=== PATIENT | female | born 1960 | race Caucasian/White ===

== ENCOUNTER 2022-04-23 13:45 | Outpatient (RCR) | payer BC, SELFPAY | END 2022-05-25 15:23 | disposition home or self-care (01) | PROVIDERS: Visit Provider Emergency Medicine | DX: M54.50 Low back pain, unspecified (principal); Z51.89 Encounter for other specified aftercare | CPT/HCPCS: 97110 ==

== ENCOUNTER 2023-08-17 12:04 | Outpatient (CLI) | payer BC, SELFPAY ==
--- NOTE | 2023-08-17 12:15 | CRLHL7_ITS ---
For Patients: As a result of the Century Cures Act, medical imaging exams and procedure reports are released immediately into your electronic medical record. You may view this report before your referring provider. If you have questions, please contact your health care provider. CLINICAL HISTORY: Postmenopausal bleeding TECHNIQUE: 2D morales scale and color Doppler images were acquired of the pelvis using a transvaginal approach. FINDINGS: The uterus measures 7.7 x 4.9 x 5.6 cm. Partially exophytic heterogeneous fibroid arises from the left side of the mid uterus measuring 2.9 x 2.3 x 2.6 cm. The endometrium measures 3 millimeters. Lobular masses present within the endometrial canal measuring 2.1 x 1.0 x 2.0 cm. A small amount of fluid is present within the endometrial canal. Uterine echotexture is heterogeneous. The left ovary is not visualized and the right ovary measures 2.6 x 1.1 x 1.5 cm. The right ovary demonstrates normal arterial and venous blood flow on color Doppler analysis. There are no suspicious fluid collections within the cul-de-sac. IMPRESSION: Lobular hyperechoic endometrial mass measuring 2.1 x 1.0 x 2.0 cm, polyp versus other. A small amount of endometrial fluid is also present. Partially exophytic left mid uterine fibroid measuring 2.9 x 2.3 x 2.6 cm. Dictated by Abdoul Torres MD @ 08/17/2023 1:16:10 PM (Electronically Signed)
== END 2023-08-17 12:05 | disposition home or self-care (01) ==
LOC: US 12:05
PROVIDERS: PCP Emergency Medicine; Visit Provider Obstetrics & Gynecology
DX: N95.0 Postmenopausal bleeding (principal); D25.9 Leiomyoma of uterus, unspecified
CPT/HCPCS: 76830

== ENCOUNTER 2023-09-15 10:29 | Outpatient (CLI) | payer MEDICARE, BC, SELFPAY | END 2023-09-15 10:30 | disposition home or self-care (01) | LOC: LKVREF 10:31 | PROVIDERS: PCP Emergency Medicine; Visit Provider Emergency Medicine | DX: Z01.818 Encounter for other preprocedural examination (principal); I10 Essential (primary) hypertension | CPT/HCPCS: 80048 ==

== ENCOUNTER 2023-09-28 06:45 | Day surgery (SDC) | payer MEDICARE, BC, SELFPAY ==
[2023-09-28] VITALS (13 sets, daily range): BP systolic 103–126; BP diastolic 45–81; PULSE 56–75; RESP 16; TEMP 36.4–36.5; O2SAT 93–98; BMI 34.6
[2023-09-28] MEDS: LACTATED RINGERS 1000 ML 1,000 ML 100 ML IV (06:45)
--- OUTSIDE RECORDS SUMMARY | 2023-09-28 06:49 | XMS_ITS | Clinical Summary ---
Author Name Unknown Organization [employer] [facility] Address [place], [place] [address] Care Team Providers Care Instant Potato Processor Name Role Phone Heaven Farrell MD Primary Care Provider [phone] Allergies Active Allergy Reactions Criticality Noted Date Comments Aspirin Bronchospasm,Other - Describe In Comment Field High 03/04/2006 asmatic Codeine Hives 11/02/2005 Ibuprofen Anaphylaxis High 10/28/2012 Penicillins Itching,Edema 10/29/2006 Prednisone Tachycardia Medium 07/22/2020 Hydrocodone-Acetaminophen Nausea Only 6 Medications Medication Sig Dispensed Refills Start Date End Date Status CYCLOBENZAPRINE 10 MG TAB 1 tab prn 0 01/27/2007 Active BLOOD GLUCOSE TEST STRIPS use as directed 3 months 1 01/27/2007 Active FLONASE 50 MCG/ACTUATION NASAL SPRAY AEROSOLIndications: Chronic rhinitis inhale 1 spray in each nostril by nasal route once daily 1 3 06/21/2007 Active ALBUTEROL SULFATE 2.5 MG/3 ML NEB SOLUTIONIndications :Wheezing inhale 3 milliliters (2.5 mg) by nebulization 1 0 09/07/2007 Active ALBUTEROL 90 MCG/ACTUATION AEROSOL INHALER inhale 2 puffs by inhalation route every 4-6 hours as needed 3 5 09/21/2007 Active ADVAIR DISKUS 250 MCG-50 MCG/DOSE FOR INHALATION inhale 1 puff by inhalation route 2 times per day morning and evening approximately 12 hours apart 1 2 11/14/2007 Active metFORMIN (GLUCOPHAGE) 500 mg tablet Take 500 mg by mouth 2 times daily with meals. 0 10/31/2019 Active glipiZIDE extended-release (GLUCOTROL XL) 10 mg Extended-Release tablet Take 10 mg by mouth 2 times daily. 0 10/31/2019 Active rosuvastatin (CRESTOR) 10 mg tablet Take 10 mg by mouth once daily. 0 05/13/2020 Active lisinopriL (PRINIVIL; ZESTRIL) 10 mg tablet Take 10 mg by mouth once daily. 0 07/11/2020 Active famotidine (PEPCID) 20 mg tablet Take 20 mg by mouth once daily. Take 20 mg by mouth once daily. 0 11/28/2021 Active metoprolol succinate (TOPROL XL) 25 mg Sustained-Release tabletIndications:P alpitations,Heart palpitations Take 1 Tablet (25 mg) by mouth once daily. 90 Tablet 3 02/04/2023 Active Active Problems Problem Noted Date Diagnosed Date Rosacea 08/01/2007 Other and unspecified hyperlipidemia 12/07/2006 DM, UNCOMPLICATED, TYPE II 10/09/2005 PNEUMONIA - BACTERIAL 05/13/2001 CHOLELITHIASIS W/O CHOLECYSTITIS W/O OBST 1999 HYPOTHYROIDISM NOS 07/14/2000 MOLE-TRUNK 04/05/2000 PAP SMEAR 04/05/2000 PLANTAR FASCIITIS 02/02/2000 MYLAGIA - NOS 01/22/2000 ASTHMA- MILD INTERMITTENT 01/22/2000 OBESITY - NOS 09/13/1999 Resolved Problems Problem Noted Date Diagnosed Date Resolved Date Regular astigmatism 03/14/2007 10/28/19 13 Presbyopia 03/14/2007 10/28/2012 Myopia 03/14/2007 10/28/2012 Encounters Date Type Department Care Team Description 08/17/2023 Lab Requisition [facility] [phone] Unknown, Doctor from Last 3 Months Immunizations Name Administration Dates Next Due Influenza, IIV3 (Age >=3 years) 07/23/2006,07/04,07/10/2003,08/09/2000 Family History Medical History Relation Name Comments Heart Disease Father Other Mother parkinson, torsten ntia Genetic Other heart disease~stroke~hypertension~arthritis~headaches~lazy eye - son/heart disease - Mother age 50~stroke~hypertension~arthritis~headaches~lazy eye - son~Family history of:~~Breast Cancer: No~~Ovarian Cancer: No~~Colon CA: no~~Prostate CA: no~~Osteoporosis: Mother~~ ~~DM: No~~Thyroid Dz: No Relation Name Status Comments Father Maternal Grandfather Maternal Grandmother Mother Other Paternal Grandfather Paternal Grandmother Social History Tobacco Use Types Packs/Day Years Used Date Smoking Tobacco: Never Smokeless Tobacco: Never Alcohol Use Standard Drinks/Week Comments No 0 (1 standard drink = 0.6 oz pur e alcohol) Social Connections Answer Date Recorded Frequency of Communication with Friends and Fami ly Not on file 09/13/2021 Financial Resource Strain Answer Date R ecorded Difficulty of Paying Living Expenses Not on file 09/13/2021 Difficulty of Paying Living Expenses Not on file 09/13/2021 Sex and Gender Information Value Date Recorded Sex Assigned at Not on file Gender Identity Not on file Sexual Orientation Not on file Obstetrics History Para Term AB IAB SAB Ectopic Multiple Livin g Live Births 5 4 4 0 1 0 1 0 0 4 Date Outcome GA Total Labor Labor/2nd/3rd Weight Sex Delivery Anes PTL Patrizia A1 A5 Name Cl in SAB Term Term Term Term Last Filed Vital Signs Vital Sign Reading Time Taken Comments Blood Pressure 115/72 02/04/2023 11:06 AM CDT Pulse 71 02/04/2023 11:06 AM CDT Temperature 36.8 ??C (98.2 ??F) 09/07/2007 3:08 PM CS T Respiratory Rate 20 01/05/2006 11:00 AM CDT Oxygen Saturation 98% 02/04/2023 11:06 AM CDT Inhaled Oxygen Concentration - - Weight 100.7 kg (222 lb) 02/04/2023 11:06 AM CDT Height 172.7 cm (5' 8) 01/16/2022 10:29 AM CDT Body Mass Index 33.75 01/16/2022 10:29 AM CDT Plan of Treatment Health Maintenance Due Date Last Done Comments COVID-19 vaccine series (#1) 03/22/1959 Pneumococcal series for age 65+ (1 of 2 - PCV) 1964 Tdap 1969 Depression screening for age 12+ 1970 HIV for age 15-65 1973 Hepatitis C screening for ag e 18-79 1976 Tetanus booster 1978 Colonoscopy through age 75 2003 Mammogram for age 45-75 10/16/2004 10/16/2003, 08/21 Zoster (shingles) series for age 50+ (1 of 2) 2008 Lipids for age 45-75 01/05/2012 01/04/2007, 07/23/2006, 03/04/2006, Additional history exists BMI (ht and wt on same day) for age 18+ 01/16/2023 01/16/2022, 07/22/2020 DEXA/DXA scan for age 65+ 2023 Influenza for age 65+ 2023 07/23/2006 , 07/04/2004, 07/10/2003, Additional history exists Pap test for age 21-65 08/16/2026 , 08/16/2023, 03/24/2011, Additional history exists Procedures Procedure Name Priority Date/Time Associated Diagnosis Comments LAB TRACKING EVENT Routine 08/16/2023 3: 45 PM [employer]ING PICKLING PACKER SKIVER HEEL TAP THIN PREP PAP SCREEN IMAGED Routine 08/16/2023 3:45 PM [employer]ING P[employer]LING PACKER HPV THIN PREP Routine 08/16/2023 3:45 PM CURING PICKLING PACKER from Last 3 Months Results * LAB TRACKING EVENT (08/16/2023 3:45 PM CURING PICKLING PACKER) Other (Other) Client Collect / Unknown 08/16/2023 3:45 PM CURING PICKLING PACKER 08/17/2023 4:28 PM [employer]ING PICKLING PACKER Doctor Unknown LAB BILL ONLY [facility] [address] [place] [address], * SKIVER HEEL TAP THIN PREP PAP SCREEN IMAGED (08/16/2023 3:45 PM CURING PICKLING PACKER) Case Report Gynecologic Cytology Report ? Case: [id number] ? Authorizing Provider: ??Unknown, Doctor ?Collected: ? 08/16/2023 1545 ? Ordering Location: ? [facility] ?Received: ?08/18/2023 1206 ? First Screen: ?Kenton Beauchamp ? Specimen: ?SKIVER HEEL TAP ThinPrep Vial Screening, Cervical ? 08/24/2023 1:50 PM [facility]ING [facility] INTERPRETATION/ RESULT NEGATIVE FOR INTRAEPITHELIAL LESION OR MALIGNANCY (NIL) (none) 08/24/2023 1:50 PM CURING PICKLING PACKER [facility] EN[facility] LABORAT[facility] IMEN ADEQUACY Satisfactory for evaluation Endocervical component present 08/24/2023 1:50 PM CURING PICKLING PACKER [facility] LABORATORY-C ENTRAL LABORATORY HPV REQUEST HPV and PAP 08/24/2023 1:50 PM CURING PICKLING PACKER [facility] LABORATORY-C ENTRAL LABORATORY Last Pap Date 03/24/2011 08/24/2023 1:50 PM CURING PICKLING PACKER [facility] EN[facility]AL LAB[facility]AT[facility] Last Pap Result NIL 1:50 PM CURING PICKLING PACKER [facility] EN[facility]AL LABORATORY Abnormal Pap or [place] Bx in last 5 years No 08/24/2023 1:50 PM CURING PICKLING PACKER [facility] LABORATORY-C ENTRAL LABORATORY Menstrual Status Postmenopausal 08/24/2023 1:50 PM [facility]ING PICKLING PACKER [facility]-C ENTRAL LABORATORY Additional Information 08/24/2023 1:50 PM CURING PICKLING PACKER [facility] ENTRPA LABORATORY Comment: Interpreted at [facility] - [address] [facility] [address], [place] [address] Automated Review Successful 08/24/2023 1:50 PM CURING PICKLING PACKER [facility] EN[facility]PA LABORATORY Comment:Specimen processed s uccessfully by automated warp knit operator device, [employer] System, [employer] ANCILLARY TESTING SKIVER HEEL TAP HPV Ordered, Please see separate report 08/24/2023 1:50 PM CURING PICKLING PACKER [facility] Note The pap test is a screening technique, not a diagnostic procedure. It is used primarily to screen for squamous cancers and precursor lesions. Published studies have shown that it is subject to both false negative and false positive results. The pap test should not be used as the sole means to diagnose or exclude pre-malignant and malignant lesions. 08/24/2023 1:50 PM CURING PICKLING PACKER [facility] Other (Cervical) 08/16/2023 3:45 PM CURING PICKLING PACKER 08/18/2023 12:06 PM CURING PICKLING PACKER Doctor Unknown PATHOLOGY/CYTOLOGY [facility] [address] [place] [address], * HPV HIGH RISK (08/16/2023 3:45 PM CURING PICKLING PACKER) TYPE 16 Negative Negative 08/20/2023 11:20 AM CURING PICKLING PACKER [facility] TRAL LABORATORY TYPE 18 Negative Negative 08/20/2023 11:20 AM CURING PICKLING PACKER [facility] LABORAT[facility] OTHER HIGH RISK TYPES Negative Negative 08/20/2023 11:20 AM CURING PICKLING PACKER [facility] TR[facility] LABORAT[facility] Other (Cervical) 08/16/2023 3:45 PM CURING PICKLING PACKER 08/18/2023 12:06 PM CURING PICKLING PACKER Narrative [facility] - 08/20/2023 11:20 AM CURING PICKLING PACKER HPV types 16, 18, 31, 33, 35, 39, 45, 51, 52, 56, 58, 59, 66 and 68 DNA were undetectable or below the pre-set threshold. Methodology: Teagan Jason 4800 HPV Test Doctor Unknown MICROBIOLOGY [employer] [facility] [address] [place] [address], from Last 3 Months Care Teams Instant Potato Processor Relationship Specialty Start Date End Date Heaven Farrell [place] [address] [place] [address] PCP - General Emergency Medicine 01/16/22
--- OUTSIDE RECORDS SUMMARY | 2023-09-28 06:49 | XMS_ITS | Referral Summary ---
Author Name Unknown Organization [place] Address [address] [place] [address] Care Team Providers Care Communications Operator Name Role Phone [facility], [facility] Primary Care Provide r Allergies Active Allergy Reactions Criticality Noted Date Comments Aspirin Low 08/07/2013 Codeine Phosphate Low 08/07/2013 Hydrocodone-Acetaminophen Nausea Low 11/02/2005 Ibuprofen Sodium Low 08/07/2013 Penicillins Itching Low 10/29/2006 Other reaction(s): Edema Medications Medication Sig Dispensed Refills Start Date End Date Status albuterol 108 (90 Base) MCG/ACT IN inhaler 0 09/21/2007 Active cyclobenzaprine 10 MG PO tablet 0 01/27/2007 Active fluticasone 50 MCG/ACT NA nasal spray 0 06/21/2007 Active metoprolol succinate ER 25 MG PO 24 hr tablet Take 25 mg by mouth 0 08/14/2019 Active fluticasone-salmete rol 250-50 MCG/DOSE IN inhalerIndications: Moderate persistent asthma without complication Inhale 1 puff into the lungs every 12 hours 1 Inhaler 11 10/31/2019 Active metFORMIN 500 MG PO tabletIndications:T ype 2 diabetes mellitus with other specified complication, unspecified whether long wall shear operator insulin use (H) Take 1 tablet (500 mg) by mouth 2 times daily (with meals) 180 tablet 1 10/31/2019 Active glipiZIDE 10 MG PO 24 hr tabletIndications:T ype 2 diabetes mellitus with other specified complication, unspecified whether senior care insulin use (H) Take 2 tablets (20 mg) by mouth daily 60 tablet 11 10/31/2019 Active ipratropium - albuterol 0.5 mg/2.5 mg/3 mL (DUONEB) 0.5-2.5 (3) MG/3ML neb solutionIndications :Post-viral cough syndrome,Moderate persistent asthma with acute exacerbation Take 1 vial (3 mLs) by nebulization every 6 hours as needed for shortness of breath / dyspnea or wheezing 1 Box 1 11/28/2019 Active rosuvastatin (CRESTOR) 10 MG tabletIndications:H yperlipidemia with target LDL less than 100 Take 1 tablet (10 mg) by mouth daily 90 tablet 1 05/13/2020 Active Active Problems Problem Noted Date Diagnosed Date Moderate persistent asthma 11/03/2019 Type 2 diabetes mellitus treated without insulin 11/03/2019 Morbid obesity 11/03/2019 Hypercholesteremia 11/03/2019 Essential hypertension 11/03/2019 Low back pain 08/07/2013 Immunizations Name Administration Dates Next Due Influenza (H1N1) 11/22/2009 Influenza (IIV3) PF 07/23/2006, 4,07/10/2003, 000 Influenza, seasonal, injectable, PF 11/22/2009 Pneumococcal 23 valent 11/01/2013 TDAP Vaccine (Adacel) 03/24/2011 Social History Tobacco Use Types Packs/Day Years Used Date Smoking Tobacco: Never Smokeless Tobacco: Never Alcohol Use Standard Drinks/Week Comments No 0 (1 standard drink = 0.6 oz pur e alcohol) PHQ-2 Answer Date Recorded PHQ-2 Score 0 10/31/2019 Adolescent Education Answer Date Record ed Getting School Help Needed Not on file 06/20 Sex and Gender Information Value Date Recorded Sex Assigned at Not on file Gender Identity Not on file Sexual Orientation Not on file Last Filed Vital Signs Vital Sign Reading Time Taken Comments Blood Pressure 120/72 11/03/2019 1:48 PM FINANCIAL ADVOCATE Pulse 116 11/03/2019 1:48 PM FINANCIAL ADVOCATE Temperature 37.7 ??C (99.9 ??F) 11/03/2019 1:48 PM CS T Respiratory Rate 26 11/03/2019 1:48 PM FINANCIAL ADVOCATE Oxygen Saturation 97% 11/03/2019 1:48 PM FINANCIAL ADVOCATE Inhaled Oxygen Concentration - - Weight 106.1 kg (234 lb) 11/03/2019 1:48 PM FINANCIAL ADVOCATE Height 172.7 cm (5' 8) 11/03/2019 1:48 PM FINANCIAL ADVOCATE Body Mass Index 35.58 11/03/2019 1:48 PM FINANCIAL ADVOCATE Plan of Treatment Not on file Advance Directives For more information, please contact: [phone] Latest Code Status on File Code Status Date Activated Date Inactivated Comments Full Code 08/08/2013 10:56 AM Code Status History Code Status Date Activated Date Inactivated Comments Full Code 08/07/2013 7:10 PM 08/08/2013 10:56 AM Care Teams Communications Operator Relationship Specialty Start Date End Date [facility] [place] [address] PCP - General 08/07/13
--- OUTSIDE RECORDS SUMMARY | 2023-09-28 06:49 | XMS_ITS | Clinical Summary ---
Author Name Unknown Organization [place] Address [address] [place] [id number] Care Team Providers Care Inspector Machine Cut Glass Name Role Phone [facility], [facility] Primary Care Provide r Allergies Active Allergy [...] mellitus with other specified complication, unspecified whether chemical dependency counselor insulin use (H) Take 1 tablet (500 mg) by mouth 2 times daily (with meals) 180 tablet 1 10/31/2019 Active glipiZIDE 10 MG PO 24 hr tabletIndications:T ype 2 diabetes mellitus with other specified complication, unspecified whether prison insulin use (H) Take 2 tablets (20 [...] Comments Blood Pressure 120/72 11/03/2019 1:48 PM STORE MANAGEMENT TRAINEE Pulse 116 11/03/2019 1:48 PM STORE MANAGEMENT TRAINEE Temperature 37.7 ??C (99.9 ??F) 11/03/2019 1:48 PM CS T Respiratory Rate 26 11/03/2019 1:48 PM STORE MANAGEMENT TRAINEE Oxygen Saturation 97% 11/03/2019 1:48 PM STORE MANAGEMENT TRAINEE Inhaled Oxygen Concentration - - Weight 106.1 kg (234 lb) 11/03/2019 1:48 PM STORE MANAGEMENT TRAINEE Height 172.7 cm (5' 8) 11/03/2019 1:48 PM STORE MANAGEMENT TRAINEE Body Mass Index 35.58 11/03/2019 1:48 PM STORE MANAGEMENT TRAINEE Plan of Treatment Health Maintenance Due Date Last Done Comments ADVANCE CARE PLANNING 1960 ANNUAL REVIEW OF HM ORDERS [address] ASTHMA ACTION PLAN [address] CT COLONOGRAPHY 1958 EYE EXAM 1960 FIT 1958 FLEX SIG 1960 MICROALBUMIN 1958 YEARLY PREVENTIVE VISIT 1958 sDNA (Cologuard) 1960 COVID-19 Vaccine (#1) 03/22/1959 HEPATITIS C SCREENING 1976 PAP 1979 ZOSTER IMMUNIZATION (1 of 2) 2008 Pneumococcal Vaccine: Pediatrics (0 to 5 Years) and At-Risk Patients (6 to 64 Years) (2 of 2 - PCV) 11/01/2014 11/01/2013 MAMMO SCREENING 06/20/2017 06/20/2015 RSV VACCINE ( & 60+) (1 - 1-dose 60+ series) 2018 A1C 01/29/2020 10/31/2019, 07/15, 08/07/2013 ASTHMA CONTROL TEST 04/30/2020 10/31/2019 BMP 10/31/2020 10/31/2019, 07/15, 11/21/2009, Additional history exists LIPID 10/31/2020 10/31/2019 DIABETIC FOOT EXAM 11/07/2020 11/07/2019 DTAP/TDAP/TD IMMUNIZATION (2 - Td or Tdap) 03/24/2021 03/24/2011 COLONOSCOPY 05/28/2021 05/28/2011 COLORECTAL CANCER SCREENING 05/28/2021 INFLUENZA VACCINE (#1) 2023 0, 11/22/2009, 07/23/2006, Additional history exists PHQ-2 (once per calendar year) 2023 10/31/2019 HIV SCREENING Discontinued HPV IMMUNIZATION Aged Out No longer e ligible based on patient's age to complete this topic IPV IMMUNIZATION Aged Out No longer e ligible based on patient's age to complete this topic MENINGITIS IMMUNIZATION Aged Out No l onger eligible based on patient's age to complete this topic RSV MONOCLONAL ANTIBODY Aged Out No l onger eligible based on patient's age to complete this topic Advance Directives For more information, please contact: [phone] Latest Code Status on File Code Status Date Activated Date Inactivated Comments Full Code 08/08/2013 10:56 AM Code Status History Code Status Date Activated Date Inactivated Comments Full Code 08/07/2013 7:10 PM 08/08/2013 10:56 AM Care Teams Inspector Machine Cut Glass Relationship Specialty Start Date End Date [facility], [facility] MEDICAL DOCTOR MD JADYN MORSE [place], [place] [id number] PCP - General 08/07/13
--- OUTSIDE RECORDS SUMMARY | 2023-09-28 06:49 | XMS_ITS | Encounter Summary ---
Author Name Unknown Organization [place] Address [facility] [place] [address] Care Team Providers Care Plant Puller Name Role Phone [facility] Primary Care Provide r Hyun Romero MD Unavailable [phone] Hyun Romero MD Unavailable [phone] Reason for Visit * Reason Comments Medication Refill Encounter Details Date Type Department Care Team (Late st Contact Info) Description 05/06/2020 Refill [facility] [id number] [place] [id number] Jazzy Dewitt PA-C [address] [place] [address] Medication Refill Social History Tobacco Use Types Packs/Day Years Used Date Smoking Tobacco: Never Smokeless Tobacco: Never Alcohol Use Standard Drinks/Week Comments No 0 (1 standard drink = 0.6 oz pur e alcohol) PHQ-2 Answer Date Recorded PHQ-2 Score 0 10/31/2019 Sex and Gender Information Value Date Recorded Sex Assigned at Not on file Gender Identity Not on file Sexual Orientation Not on file documented as of this encounter Miscellaneous Notes * Telephone Encounter - ChristalShanon ledezma - 05/07/2020 9:19 AM CDT Pt called wanted to inform us that she no longer comes to this clinic. Her meds are being prescribed by another doctor. Shanon Richardson Patient Cargo Tank Mechanic * Telephone Encounter - Chrystal Tinsley RN - 05/07/2020 9:07 AM CDT LMTRC Pt is past due for DM appt Routing refill request to provider for review/approval because: Labs not current: A1C Chrystal Tinsley RN, BSN documented in this encounter Plan of Treatment Not on file documented as of this encounter Visit Diagnoses Diagnosis Type 2 diabetes mellitus with other specified complication, unspecified whether intermediate card tender insulin use (H) documented in this encounter Care Teams Plant Puller Relationship Specialty Start Date End Date [facility] [place] [address] PCP - General 08/07/13 [place] [address] [place] [address] Assigned PCP 12/10/19 08/28/22 [place] [address] [place] [address] Assigned PCP 11/07/22 11/27/22 documented as of this encounter
[2023-09-28] MEDS: SODIUM CHLORIDE 0.9 % (FLUSH) 10 ML SYRINGE IVF (07:07)
--- NOTE | 2023-09-28 07:17 | PM.GYNHPPRM ---
SALES PROFESSIONAL BILINGUAL: H&P: HPI Surgical History of Present Illness Time Seen by Provider: 07:15 Date Seen: 09/28/23 Last H&P: History & Physical 09/28/23 07:17 Narrative: Kimberly Mcmillan is a 63 year old female seen in preop prior to planned hysteroscopy, dilation and curettage. Gynecologic history is significant for postmenopausal bleeding, with a 2.1 x 1.0 x 2.0 lobular hyperechoic endometrial mass. Endometrial sampling could not be accomplished in the office, due to significant cervical stenosis. Patient received Cytotec per vagina last night to facilitate cervical softening/opening of the endocervical canal. Kimberly is feeling well this morning, no acute concerns. Of note at her preop visit, her hemoglobin A1c was noted to be significantly elevated. We did review that this increases the risk for infection with surgery, however mutually agreed to proceed in the setting of her postmenopausal bleeding and ultrasound findings. We again reviewed the risk of surgery including bleeding, infection and damage to surrounding structures. Explained risk of uterine perforation given cervical stenosis, and potential implications including laparoscopy. We then reviewed postoperative expectations and restrictions. All questions answered. [facility] Medical History MARIELA (obstructive sleep apnea) ?G47.33 - Obstructive sleep apnea (adult) (pediatric) (ICD-10) Pre-op exam ?Z01.818 - Encounter for other preprocedural examination (ICD-10) Subacute dermatitis ?L30.9 - Dermatitis, unspecified (ICD-10) Sinus congestion ?R09.81 - Nasal congestion (ICD-10) Screening for breast cancer ?Z12.39 - Encounter for other screening for malignant neoplasm of breast (ICD-10) Tubular adenoma ?D36.9 - Benign neoplasm, unspecified site (ICD-10) Change in stool caliber ?R19.5 - Other fecal abnormalities (ICD-10) Uncontrolled type 2 diabetes mellitus Thrombocytopenia ?D69.6 - Thrombocytopenia, unspecified (ICD-10) Normal stress echocardiogram Cough ?R05.9 - Cough, unspecified (ICD-10) Normal stress echocardiogram PSVT (paroxysmal supraventricular tachycardia) ?I47.1 - Supraventricular tachycardia (ICD-10) Moderate persistent asthma ?J45.40 - Moderate persistent asthma, uncomplicated (ICD-10) Encounter for screening for severe acute respiratory syndrome coronavirus 2 (SARS-CoV-2) infection ?Z11.52 - Encounter for screening for COVID-19 (ICD-10) Chronic sinusitis ?J32.9 - Chronic sinusitis, unspecified (ICD-10) Surgical History H/O tubal ligation ?Z98.51 - Tubal ligation status (ICD-10) Hx of cholecystectomy ?Z90.49 - Acquired absence of other specified parts of digestive tract (ICD-10) History of sinus surgery (05/29/11) ?Z98.890 - Other specified postprocedural states (ICD-10) History of endoscopic sinus surgery ?Z98.890 - Other specified postprocedural states (ICD-10) History of colonoscopy ?Z98.890 - Other specified postprocedural states (ICD-10) History of breast biopsy ?Z98.890 - Other specified postprocedural states (ICD-10) Family History Mother Stroke, Onset Age: 75 Maternal Grandmother Stroke, Onset Age: 70 Social History (Updated 04/20/22 @ 12:32 by Avinash Andrew) Narrative: Does not drink alcohol Does not use illicit drugs Non-smoker Smoking Status: Never smoker How often do you have a drink containing alcohol: never AUDIT-C Alcohol total score: 0 Non-prescribed substance use: denies use Caffeine: Yes Little interest or pleasure in doing things: not at all Feeling down, depressed, or hopeless: not at all Are you using contraception or practicing any form of control: No Meds Home Medications and Allergies Home Medications Medication Instructions Recorded Confirmed Type cyclobenzaprine 5 mg tablet 5 mg PO .QHS PRN 06/10/22 09/28/23 History ipratropium 0.5 mg-albuterol 3 mg 3 ml inhalation Q4H PRN 06/10/22 09/15/23 History (2.5 mg base)/3 mL nebulization soln metoprolol succinate 25 mg 25 mg PO QDAY 06/17/22 09/28/23 History tablet,extended release 24 hr Allergies Allergy/AdvReac Type Severity Reaction Status Date / Time aspirin Allergy Severe Wheezing Verified 09/28/23 07:03 epinephrine Allergy Severe Shakiness Verified 09/28/23 07:03 ibuprofen Allergy Severe Swelling Verified 09/28/23 07:03 of throat codeine Allergy Intermediate Rash Verified 09/28/23 07:03 Penicillins Allergy Intermediate hives, Verified 09/28/23 07:03 itching hydrocodone Allergy Unknown Verified 09/28/23 09:18 prednisone Allergy Unknown Heart 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 Mcmillan is a 63yo seen in pre-op prior to planned hysteroscopy, dilation and curettage in the setting of postmenopausal bleeding and 2cm endometrial mass vs polyp. Cervical stenosis noted on attempted office EMB, now s/p cytotec in anticipation of procedure. Planned procedure, risks/benefits reviewed in depth. - Plan HSC, D&C - Endometrial curettings will be sent for pathologic evaluation - No perioperative antibiotics - Pre-op labs reviewed and are within normal limits
[2023-09-28 07:50] LABS: Hemoglobin* 13.5 gm/dL (12.0-16.0)
[2023-09-28 08:04] LABS: Creatinine* 0.7 mg/dL (0.5-1.5); Est. Creatinine Clearance* 52.51; Estimated Glomerular Filt Rate 96 ml/min
--- NOTE | 2023-09-28 08:44 | W.ANESCHARGE ---
Anesthesia Charges Start Date/Time Anesthesia Start Date: 09/28/23 Stop Date/Time Anesthesia Stop Date: 09/28/23
[2023-09-28] MEDS: BUPIVACAINE 0.5% 30 ML INJECTION (09:11)
--- NOTE | 2023-09-28 09:19 | W.PM.GYNPROC ---
Procedure Note Time Seen by Provider: 08:40 Date of procedure: 09/28/23 Pre-op diagnosis: Postmenopausal bleeding, 2cm uterine mass/polyp Post-op diagnosis: same Procedure: Hysteroscopy, dilation and curettage Anesthesia: MAC and local Complications: Suspected occult uterine perforation given high fluid deficit Surgeon: Audra Ramsey MD Estimated blood loss (mL): 50 IV fluids (mL): 800 Urine Output (mL): 150 Pathology: specimen obtained, sent to pathology Condition: stable Disposition: same day Findings: Significant cervical stenosis, approximately 1 cm inside the external cervical os Pale polypoid-like tissue within endometrium, tubal ostia could not be visualized Cervical false passage without apparent perforation on hysteroscopic examination Suspected occult perforation due to high fluid deficit Procedure Description: Procedure in detail: Patient was taken to the operating room with IV running. She was positioned in dorsal lithotomy position with her legs fully supported in Yellofin stirrups. Monitored anesthesia care was administered. She was prepped and draped in the usual sterile fashion. Exam under anesthesia was performed for the above-noted findings. Speculum was inserted. Cervix visualized and grasped along the anterior lip with a single-tooth tenaculum. Paracervical block was performed at 4 and 8 o'clock in the usual fashion with 0.5% Marcaine. External os could be visualized, where sound was attempted to be passed but could not be passed beyond 1 cm in depth. Attempted to pass 3 mm cervical dilator without success due to significant cervical stenosis. Plastic os finder was utilized to gently dilate the endocervical os trying different angles to access the endocervix. Tenaculum was revised to posterior lip of the cervix to see if this would allow better access to endocervical canal. Eventually, suspected endocervical canal was entered and gently dilated. Trueclear hysteroscopy was inserted, where endocervix was traversed with some difficulty. A false passage was noted anteriorly within the cervix, with NO apparent perforation as distal end of this passage appeared intact. Navigated back to true endocervical canal where the uterine cavity was entered. High fluid deficit warning occurred, at 700cc of NS where circulating RN was troubleshooting fluid management system/drainage to ensure accuracy. In the interim, soft tissue resector was advanced through hysteroscope and window lock performed. Limited circumferential curettage was performed under direct visualization through endometrial cavity - this included resection of pale, polypoid-like tissue. High fluid deficit alarm again sounded at 1,700cc - where decision was made to stop procedure in the setting of suspected occult uterine perforation. The hysteroscope and morcellator were then removed from the uterus. Tenaculum was removed from the cervix. Trauma to posterior cervix was noted with associated bleeding, where 2-0 vicryl was applied in a running/locking fashion to achieve hemostasis. Excellent hemostasis was noted at completion of procedure. Patient tolerated procedure well. She was taken to recovery area in stable condition. Surgical debriefing performed. Complications include suspected occult uterine perforation, fluid deficit of 1,750 cc of NS. Pathology includes endometrial curettings. EBL 50cc.
--- NOTE | 2023-09-28 09:24 | W.ANESCHARGE ---
Anesthesia Charges Start Date/Time Anesthesia Start Date: 09/28/23 Anesthesia Start Time: 08:20 Stop Date/Time Anesthesia Stop Date: 09/28/23 Anesthesia Stop Time: 09:25
--- NOTE | 2023-09-28 10:46 | SUR.PHASEII ---
pt up to BR voiding w/ difficulties, small amount of bleeding unmeasured.
[2023-09-28 12:00] LABS: Hemoglobin* 12.4 gm/dL (12.0-16.0)
--- NOTE | 2023-09-28 12:57 | PM.GYNPNPO ---
OFFICE CHAIR ASSEMBLER - A/P Assessment and plan (1) Cervical stenosis (uterine cervix): Status: Acute (2) Postmenopausal bleeding: Status: Acute Plan Kimberly is seen on POD0 for interval exam after suspected occult uterine perforation. She has had a normal postoperative recovery. Vital signs reviewed, within normal limits. Postprocedure hemoglobin within normal limits at 12.4. Benign abdominal exam. We again reviewed the intraoperative findings and concern for occult uterine perforation. Explained that limited endometrial sampling was performed, however I do not feel adequate sampling was achieved given need to stop the procedure in the setting of high fluid deficit. Reviewed her pelvic ultrasound reveals a 2 cm intracavitary lesion, which was not adequately visualized today. Discussed that we will send curettings to pathology for evaluation. Reviewed likely step would include hysterectomy for definitive diagnosis of this endometrial mass. Fortunately, exam under anesthesia suggest she would be a good candidate for vaginal hysterectomy. Reinforced the importance of glycemic control prior to consideration of surgery. All questions answered. We reviewed strict return precautions including worsening pain, heavy vaginal bleeding, nausea/vomiting, fever/chills, abnormal uterine discharge. Routine postop visit in 2 weeks, sooner as clinically indicated. Postoperative Procedures: Procedures Operation Date: 09/28/23 08:10 Actual Procedure Side Surgeon p Hysteroscopy, Dilation, Curettage Mansi Ramsey MD Time Spent With Patient Time: Total time spent is greater than 50% in coordination of care (as documented) at patient's floor/unit and/or counseling patient: Time with patient: less than 15 minutes OFFICE CHAIR ASSEMBLER- PN:Subj Post-Op Subjective Time Seen by Provider: 12:15 Date Seen: 09/28/23 Post Operative Details: Kimberly is seen on POD0 from hysteroscopy and dilation and curettage, complicated by suspected occult uterine perforation with high fluid deficit. She was observed for 4 hours postprocedure. Throughout this time, she has had minimal pain. Vital signs reviewed and are within normal limits. She is tolerating p.o., ambulating without difficulty. Notes small volume vaginal bleeding/fluid leaking. Postprocedure hemoglobin was obtained and found to be within normal limits, at 12.4. OFFICE CHAIR ASSEMBLER-PN: Obj Exam Physical Exam: Vital signs: Temp Pulse Resp BP Pulse Ox O2 Del Method 97.6 F 74 16 115/73 94 Room Air 09/28/23 09:20 09/28/23 12:22 09/28/23 12:22 09/28/23 12:22 09/28/23 12:22 09/28/23 12:22 Narrative: General: Alert and oriented, in no acute distress Abdomen: Soft, nontender and nondistended. No rebound or guarding. OFFICE CHAIR ASSEMBLER - PN: Obj Data Labs Labs: Laboratory Results - last 24 hr 09/28/23 09/28/23 07:40 11:54 Hgb 13.5 12.4 Creatinine 0.7 Estimated Creat Clear 52.51 Estimated GFR 96
== END 2023-09-28 12:34 | disposition home or self-care (01) ==
PROVIDERS: PCP Emergency Medicine; Visit Provider Obstetrics & Gynecology
PROC: 0UDB8ZZ Extraction of Endometrium, Via Natural or Artificial Opening Endoscopic (ICD-10-PCS; CPT 58558; principal; 2023-09-28 08:00)
DX: N95.0 Postmenopausal bleeding (principal); N84.0 Polyp of corpus uteri; N88.2 Stricture and stenosis of cervix uteri; G47.33 Obstructive sleep apnea (adult) (pediatric)
CPT/HCPCS: 58558; 00952; 36415; 82565; 82962; 85018; 88305; J0665; J1100; J1885; J2250; J2405; J2704; J3010; J7120

== ENCOUNTER 2023-10-13 13:59 | Outpatient (CLI) | payer MEDICARE, BC, SELFPAY | END 2023-10-13 14:00 | disposition home or self-care (01) | LOC: NFLDREF 10-14 10:15 | PROVIDERS: PCP Emergency Medicine; Referring Provider Emergency Medicine; Visit Provider Obstetrics & Gynecology | DX: N95.0 Postmenopausal bleeding (principal) | CPT/HCPCS: 87491; 87591 ==

== ENCOUNTER 2023-10-21 15:13 | Outpatient (CLI) | payer MEDICARE, BC, SELFPAY ==
--- NOTE | 2023-10-21 15:30 | MR_ITS ---
Patient: TAMIKA HERNANDEZ Facility:?[facility] RIS Patient ID:?[id number] Site Patient ID:?[id number]. Site :?[id number] Study:?MRI-Pelvis UTERUS WO/W DOTAREM 15CC-10/21/2023 2:17:09 PM Ordering Physician:MOON Final Report: Indication: Uterine mass. Technique: Multisequence multiplanar MRI of the pelvis both with and without IV contrast (15 mL Dotarem). Comparison: Pelvic ultrasound dated 08/17/2023. Findings: Visualized bowel: Visualized bowel is nondilated. Scattered colonic diverticulosis, without evidence of acute diverticulitis. Bladder: Unremarkable for degree of distension. Reproductive organs: Uterus is neutrally positioned. There is an ill-defined mass within the endometrial cavity measuring approximally 2.0 x 1.1 x 1.8 cm, with enhancement on postcontrast images. There is ill-defined interface between this mass and the normal endometrial lining, and is highly worrisome for neoplasm. Differentials of endometrial polyp and endometrial hyperplasia are felt to be less likely. This mass also causes irregular thickening of the endometrium with small amount of endometrial fluid, abnormal for a patient of postmenopausal age. Unremarkable appearance of the bilateral ovaries Pelvic lymph nodes: No lymphadenopathy. Bones: No suspicious/aggressive enhancing focal osseous lesion identified. Impression: Ill-defined mass within the endometrial cavity measuring approximally 2.0 x 1.1 x 1.8 cm, with enhancement on postcontrast images. Due to the ill-defined borders and poorly defined interface between the mass and normal endometrial lining, finding is highly worrisome for endometrial neoplasm. Differentials of endometrial polyp, endometrial hyperplasia, or submucosal fibroid are felt to be less likely. The mass also causes irregular thickening of the endometrium with small amount of endometrial fluid, abnormal for a patient of postmenopausal age. Dictated by Radha Loving MD @ 11/04/2023 5:25:16 PM Signed by:?Radha Loving MD @11/04/2023 5:25:16 PM (Electronic Signature)
== END 2023-10-21 15:14 | disposition home or self-care (01) ==
PROVIDERS: PCP Physician Assistant Medical; Visit Provider Obstetrics & Gynecology
DX: N85.8 Other specified noninflammatory disorders of uterus (principal)
CPT/HCPCS: 72197; A9575

== ENCOUNTER 2023-11-10 12:00 | Outpatient (CLI) | payer MEDICARE, BC, SELFPAY | END 2023-11-10 12:01 | disposition home or self-care (01) | PROVIDERS: PCP Physician Assistant Medical; Visit Provider Physician Assistant Medical | DX: R53.83 Other fatigue (principal); E83.52 Hypercalcemia; I10 Essential (primary) hypertension; E78.5 Hyperlipidemia, unspecified; E11.9 Type 2 diabetes mellitus without complications; E66.9 Obesity, unspecified; E11.69 Type 2 diabetes mellitus with other specified complication | CPT/HCPCS: 80053; 82306; 82607; 82746; 84443 ==

== ENCOUNTER 2023-12-15 11:27 | Outpatient (CLI) | payer MEDICARE, SELFPAY | END 2023-12-15 11:28 | disposition home or self-care (01) | LOC: NFLDREF 12-16 06:24 | PROVIDERS: PCP Physician Assistant Medical; Referring Provider Physician Assistant Medical; Visit Provider Physician Assistant Medical | DX: E83.52 Hypercalcemia (principal) | CPT/HCPCS: 82310; 83970 ==

== ENCOUNTER 2024-03-20 11:27 | Outpatient (CLI) | payer MEDICARE, SELFPAY ==
--- OUTSIDE RECORDS SUMMARY | 2024-03-20 11:32 | XMS_ITS | Encounter Summary ---
Author Organization [place] Address [facility] [place] [place] [address] Care Team Providers Care Laser Specialist Name Role Phone [facility], [facility] Primary Care Provide r Hyun Romero MD Unavailable [phone] Hyun Romero MD Unavailable [phone] Reason for Visit * Reason Comments Medication Refill Encounter Details Date Type Department Care Team (Late st Contact Info) Description 05/06/2020 Refill [facility] [id number] [place] [id number] Jazzy Dewitt PA-C [address] [place] [address] Medication Refill Social History Tobacco [...] encounter Miscellaneous Notes * Telephone Encounter - Shanon Richardson - 05/07/2020 9:19 AM CDT Pt called wanted to inform us that she no longer comes to this clinic. Her meds are being prescribed by another doctor. Shanon Richardson Patient Mechanical System Technician * Telephone Encounter - Chrystal Tinsley RN [...] mellitus with other specified complication, unspecified whether oysterman insulin use (H) documented in this encounter Care Teams Laser Specialist Relationship Specialty Start Date End Date [facility], [facility] [place] [place] [address] PCP - General 08/07/13 [place] [id number] [place] [address] Assigned PCP 12/10/19 08/28/22 [place] [id number] [place] [address] Assigned PCP 11/07/22 11/27/22 documented as of this encounter
--- OUTSIDE RECORDS SUMMARY | 2024-03-20 11:32 | XMS_ITS | Referral Summary ---
Author Organization [place] Address [address] [place] [id number] Care Team Providers Care Buyers' Agent Name Role Phone [facility], [facility] Primary Care Provide r Allergies Active Allergy Reactions Criticality Noted Date Comments Aspirin Low 08/07/2013 Codeine Phosphate Low 08/07/2013 Hydrocodone-Acetaminophen Nausea Low 11/02/2005 Ibuprofen Sodium Low 08/07/2013 Penicillins Itching Low 10/29/2006 Other reaction(s): Edema Medications Medication Sig Dispensed Refills Start Date End Date Status albuterol 108 (90 Base) MCG/ACT IN inhaler 09/21/2007 Active cyclobenzaprine 10 MG PO tablet 01/27/2007 Active fluticasone 50 MCG/ACT NA nasal spray 06/21/2007 Active metoprolol succinate ER 25 MG PO 24 hr tablet Take 25 mg by mouth 08/14/2019 Active fluticasone-salmete rol 250-50 MCG/DOSE IN inhalerIndications: Moderate persistent asthma without complication Inhale 1 puff into the lungs every 12 hours 1 Inhaler 10/31/2019 Active metFORMIN 500 MG PO tabletIndications:T ype 2 diabetes mellitus with other specified complication, unspecified whether senior living insulin use (H) Take 1 tablet (500 mg) by mouth 2 times daily (with meals) 180 tablet 1 10/31/2019 Active glipiZIDE 10 MG PO 24 hr tabletIndications:T ype 2 diabetes mellitus with other specified complication, unspecified whether medical terminologist insulin use (H) Take 2 tablets (20 [...] Comments Blood Pressure 120/72 11/03/2019 1:48 PM ESTATE CONSERVATOR Pulse 116 11/03/2019 1:48 PM ESTATE CONSERVATOR Temperature 37.7 ??C (99.9 ??F) 11/03/2019 1:48 PM CS T Respiratory Rate 26 11/03/2019 1:48 PM ESTATE CONSERVATOR Oxygen Saturation 97% 11/03/2019 1:48 PM ESTATE CONSERVATOR Inhaled Oxygen Concentration - - Weight 106.1 kg (234 lb) 11/03/2019 1:48 PM ESTATE CONSERVATOR Height 172.7 cm (5' 8) 11/03/2019 1:48 PM ESTATE CONSERVATOR Body Mass Index 35.58 11/03/2019 1:48 PM ESTATE CONSERVATOR Plan of Treatment Not on file Procedures Procedure Name Priority Date/Time Associated Diagnosis Comments NEXT GENERATION SEQUENCING ONCOLOGY Routine 12/23/2023 2:17 PM CDT LIPID REFLEX TO DIRECT LDL PANEL Routine 10/31/2019 2:20 PM ESTATE CONSERVATOR Type 2 diabetes mellitus with other specified complication, unspecified whether senior living insulin use (H) COMPREHENSIVE METABOLIC PANEL Routine 10/31/2019 2:20 PM ESTATE CONSERVATOR Type 2 diabetes mellitus with other specified complication, unspecified whether senior living insulin use (H) HEMOGLOBIN A1C Routine 10/31/2019 2:20 PM ESTATE CONSERVATOR Type 2 diabetes mellitus with other specified complication, unspecified whether senior living insulin use (H) MAMMOGRAM - HIM SCAN 06/20/2015 12:00 AM CDT COLONOSCOPY - HIM SCAN 12:00 AM CDT from Last 3 Months or Most Recently Relevant to Health Maintenance Results * Oncology Single Gene NGS Tissue (12/23/2023 2:17 PM CDT) Specimen Description Tissue: Fixed slides-collected 12/23/23, Uterus,cervix, bilateral fallopian tubes and ovaries, frozen on the uterus, [id number] 12/23/2023 2:17 PM CDT [employer] ([facility]) Significant Results Detected Alterations of Known or Potential Pathogenicity: None TMB Score: 39.003 mut/Mb 12/23/2023 2:17 PM CDT [facility] (LDL) Interpretation No mutations were detected in POLE. The TMB is elevated in the context of wildtype POLE; correlation with mismatch repair protein IHC results on the concurrent surgical pathology specimen is recommended. Correlation with morphology, IHC, and clinical features is recommended to confirm the final molecular subtype assignment. --------- Genes tested by Custom Panel V3 ([employer]): POLE --------- DRUG RESPONSE --------- Drugs Associated with Sensitivity for Other Tumor Types, Based on Genomic Analysis --------- Drug: Nivolumab, Ipilimumab Response to Drug Associated with Detected Alterations: Primary sensitivity Alteration(s) Detected: TMB-High Condition: Bone Sarcoma Other Relevant Information: NCCN recommended for TMB-High unresectable or metastatic bone cancer that has progressed on prior treatment and has no satisfactory alternative options. Line of Therapy: Metastatic Source: [facility] Drug: Nivolumab, Ipilimumab Response to Drug Associated with Detected Alterations: Primary sensitivity Alteration(s) Detected: TMB-High Condition: Pancreatic Cancer Other Relevant Information: NCCN recommended as subsequent line therapy for TMB-high locally advanced, metastaic, or recurrent pancreatic adenocarcinoma. [facility] of Therapy: [facility] Drug: Nivolumab, Ipilimumab Response to Drug Associated with Detected Alterations: Primary sensitivity Alteration(s) Detected: TMB-High Condition: Cholangiocarcinoma Other Relevant Information: NCCN recommended as first or subsequent line therapy for TMB-high biliary tract carcinoma. Line of Therapy: [facility]astatic [facility]: [facility] Drug: Nivolumab, Ipilimumab Response to Drug Associated with Detected Alterations: Primary sensitivity Alteration(s) Detected: TMB-High Condition: Liver Cancer Other Relevant Information: NCCN recommended as first or subsequent line therapy for TMB-high hepatocellular carcinoma. Line of Therapy: Metastatic Source: [facility] Drug: Nivolumab, Ipilimumab Response to Drug Associated with Detected Alterations: Primary sensitivity Alteration(s) Detected: TMB-High Condition: Soft Tissue Sarcoma Other Relevant Information: NCCN recommended with or without ipilimumab for unresectable or metastatic TMB-high soft tissue sarcomas that have progressed on prior treatment and who have no satisfactory alternative treatment options. Line of Therapy: [facility]astatic [facility] Drug: Nivolumab Response to Drug Associated with Detected Alterations: Primary sensitivity Alteration(s) Detected: TMB-High Condition: Glioma Other Relevant Information: NCCN recommended for recurrent or progressive pediatric high-grade diffuse glioma that is TMB-High. Line of Therapy: Metastatic Source: [facility] Drug: Pembrolizumab Response to Drug Associated with Detected Alterations: Primary sensitivity Alteration(s) Detected: TMB-High Condition: Colorectal Cancer Other Relevant Information: Indicated for unresectable or metastatic tumor mutational burden-high (?10 mutations/megabase) solid tumors with progression following prior treatment and no satisfactory alternative treatment options. Line of Therapy: Metastatic Source: FDA Drug: Pembrolizumab Response to Drug Associated with Detected Alterations: Primary sensitivity Alteration(s) Detected: TMB-High Condition: Non-Small Cell Lung Cancer Other Relevant Information: Indicated for unresectable or metastatic tumor mutational burden-high (?10 mutations/megabase) solid tumors with progression following prior treatment and no satisfactory alternative treatment options. Line of Therapy: Metastatic Source: FDA Drug: Pembrolizumab Response to Drug Associated with Detected Alterations: Primary sensitivity Alteration(s) Detected: TMB-High Condition: Small Cell Lung Cancer Other Relevant Information: Indicated for unresectable or metastatic tumor mutational burden-high (?10 mutations/megabase) solid tumors with progression following prior treatment and no satisfactory alternative treatment options. Line of Therapy: Metastatic Source: FDA Drug: Pembrolizumab Response to Drug Associated with Detected Alterations: Primary sensitivity Alteration(s) Detected: TMB-High Condition: Melanoma Other Relevant Information: Indicated for unresectable or metastatic tumor mutational burden-high (?10 mutations/megabase) solid tumors with progression following prior treatment and no satisfactory alternative treatment options. Line of Therapy: Metastatic Source: FDA Drug: Pembrolizumab Response to Drug Associated with Detected Alterations: Primary sensitivity Alteration(s) Detected: TMB-High Condition: Bladder Cancer Other Relevant Information: Indicated for unresectable or metastatic tumor mutational burden-high (?10 mutations/megabase) solid tumors with progression following prior treatment and no satisfactory alternative treatment options. Line of Therapy: Metastatic Source: FDA Drug: Pembrolizumab Response to Drug Associated with Detected Alterations: Primary sensitivity Alteration(s) Detected: TMB-High Condition: Tumor of Unknown Origin Other Relevant Information: Indicated for unresectable or metastatic tumor mutational burden-high (?10 mutations/megabase) solid tumors with progression following prior treatment and no satisfactory alternative treatment options. Line of Therapy: [facility]: Pembrolizumab Response to Drug Associated with Detected Alterations: Primary sensitivity Alteration(s) Detected: TMB-High Condition: Breast Cancer Other Relevant Information: Indicated for unresectable or metastatic tumor mutational burden-high (?10 mutations/megabase) solid tumors with progression following prior treatment and no satisfactory alternative treatment options. Line of Therapy: [facility]astatic [facility]: Pembrolizumab Response to Drug Associated with Detected Alterations: Primary sensitivity Alteration(s) Detected: TMB-High Condition: GIST Other Relevant Information: Indicated for unresectable or metastatic tumor mutational burden-high (?10 mutations/megabase) solid tumors with progression following prior treatment and no satisfactory alternative treatment options. Line of Therapy: Metastatic Source: [employer] Drug: Pembrolizumab Response to Drug Associated with Detected Alterations: Primary sensitivity Alteration(s) Detected: TMB-High Condition: Thymic Carcinoma Other Relevant Information: Indicated for unresectable or metastatic tumor mutational burden-high (?10 mutations/megabase) solid tumors with progression following prior treatment and no satisfactory alternative treatment options. Line of Therapy: Metastatic Source: [facility] Drug: Pembrolizumab Response to Drug Associated with Detected Alterations: Primary sensitivity Alteration(s) Detected: TMB-High Condition: Medullary Thyroid Cancer Other Relevant Information: Indicated for unresectable or metastatic tumor mutational burden-high (?10 mutations/megabase) solid tumors with progression following prior treatment and no satisfactory alternative treatment options. Line of Therapy: [facility]astatic [facility]: Pembrolizumab Response to Drug Associated with Detected Alterations: Primary sensitivity Alteration(s) Detected: TMB-High Condition: Gastric Cancer Other Relevant Information: Indicated for unresectable or metastatic tumor mutational burden-high (?10 mutations/megabase) solid tumors with progression following prior treatment and no satisfactory alternative treatment options. Line of Therapy: Metastatic Source: FDA Drug: Pembrolizumab Response to Drug Associated with Detected Alterations: Primary sensitivity Alteration(s) Detected: TMB-High Condition: Ovarian Cancer Other Relevant Information: Indicated for unresectable or metastatic tumor mutational burden-high (?10 mutations/megabase) solid tumors with progression following prior treatment and no satisfactory alternative treatment options. Line of Therapy: Metastatic Source: FDA,[facility] Drug: Pembrolizumab Response to Drug Associated with Detected Alterations: Primary sensitivity Alteration(s) Detected: TMB-High Condition: Basal Cell Carcinoma Other Relevant Information: Indicated for unresectable or metastatic tumor mutational burden-high (?10 mutations/megabase) solid tumors with progression following prior treatment and no satisfactory alternative treatment options. Line of Therapy: Metastatic Source: FDA Drug: Pembrolizumab Response to Drug Associated with Detected Alterations: Primary sensitivity Alteration(s) Detected: TMB-High Condition: Medulloblastoma Other Relevant Information: Indicated for unresectable or metastatic tumor mutational burden-high (?10 mutations/megabase) solid tumors with progression following prior treatment and no satisfactory alternative treatment options. Line of Therapy: Metastatic Source: FDA Drug: Pembrolizumab Response to Drug Associated with Detected Alterations: Primary sensitivity Alteration(s) Detected: TMB-High Condition: Neuroblastoma Other Relevant Information: Indicated for unresectable or metastatic tumor mutational burden-high (?10 mutations/megabase) solid tumors with progression following prior treatment and no satisfactory alternative treatment options. Line of Therapy: Metastatic Source: FDA Drug: Pembrolizumab Response to Drug Associated with Detected Alterations: Primary sensitivity Alteration(s) Detected: TMB-High Condition: Rhabdomyosarcoma Other Relevant Information: Indicated for unresectable or metastatic tumor mutational burden-high (?10 mutations/megabase) solid tumors with progression following prior treatment and no satisfactory alternative treatment options. Line of Therapy: Metastatic Source: FDA Drug: Pembrolizumab Response to Drug Associated with Detected Alterations: Primary sensitivity Alteration(s) Detected: TMB-High Condition: Inflammatory Myofibroblastic Tumor Other Relevant Information: Indicated for unresectable or metastatic tumor mutational burden-high (?10 mutations/megabase) solid tumors with progression following prior treatment and no satisfactory alternative treatment options. Line of Therapy: Metastatic Source: FDA Drug: Pembrolizumab Response to Drug Associated with Detected Alterations: Primary sensitivity Alteration(s) Detected: TMB-High Condition: Cholangiocarcinoma Other Relevant Information: Indicated for unresectable or metastatic tumor mutational burden-high (?10 mutations/megabase) solid tumors with progression following prior treatment and no satisfactory alternative treatment options. Line of Therapy: Metastatic Source: FDA Drug: Pembrolizumab Response to Drug Associated with Detected Alterations: Primary sensitivity Alteration(s) Detected: TMB-High Condition: Glioma Other Relevant Information: Indicated for unresectable or metastatic tumor mutational burden-high (?10 mutations/megabase) solid tumors with progression following prior treatment and no satisfactory alternative treatment options. Line of Therapy: Metastatic Source: FDA Drug: Pembrolizumab Response to Drug Associated with Detected Alterations: Primary sensitivity Alteration(s) Detected: TMB-High Condition: Renal Cell Carcinoma Other Relevant Information: Indicated for unresectable or metastatic tumor mutational burden-high (?10 mutations/megabase) solid tumors with progression following prior treatment and no satisfactory alternative treatment options. Line of Therapy: Metastatic Source: FDA Drug: Pembrolizumab Response to Drug Associated with Detected Alterations: Primary sensitivity Alteration(s) Detected: TMB-High Condition: Endometrial Adenocarcinoma Other Relevant Information: Indicated for unresectable or metastatic tumor mutational burden-high (?10 mutations/megabase) solid tumors with progression following prior treatment and no satisfactory alternative treatment options. Line of Therapy: Metastatic Source: FDA,[facility] Drug: Pembrolizumab Response to Drug Associated with Detected Alterations: Primary sensitivity Alteration(s) Detected: TMB-High Condition: Pancreatic Cancer Other Relevant Information: Indicated for unresectable or metastatic tumor mutational burden-high (?10 mutations/megabase) solid tumors with progression following prior treatment and no satisfactory alternative treatment options. Line of Therapy: [facility]astatic [facility]: Pembrolizumab Response to Drug Associated with Detected Alterations: Primary sensitivity Alteration(s) Detected: TMB-High Condition: Small Intestine Cancer Other Relevant Information: Indicated for unresectable or metastatic tumor mutational burden-high (?10 mutations/megabase) solid tumors with progression following prior treatment and no satisfactory alternative treatment options. Line of Therapy: Metastatic [facility]: Pembrolizumab Response to Drug Associated with Detected Alterations: Primary sensitivity Alteration(s) Detected: TMB-High Condition: Prostate Cancer Other Relevant Information: Indicated for unresectable or metastatic tumor mutational burden-high (?10 mutations/megabase) solid tumors with progression following prior treatment and no satisfactory alternative treatment options. Line of Therapy: [facility]astatic [facility]: Pembrolizumab Response to Drug Associated with Detected Alterations: Primary sensitivity Alteration(s) Detected: TMB-High Condition: Papillary Thyroid Cancer Other Relevant Information: Indicated for unresectable or metastatic tumor mutational burden-high (?10 mutations/megabase) solid tumors with progression following prior treatment and no satisfactory alternative treatment options. Line of Therapy: Metastatic [facility]: Pembrolizumab Response to Drug Associated with Detected Alterations: Primary sensitivity Alteration(s) Detected: TMB-High Condition: Follicular Thyroid Cancer Other Relevant Information: Indicated for unresectable or metastatic tumor mutational burden-high (?10 mutations/megabase) solid tumors with progression following prior treatment and no satisfactory alternative treatment options. Line of Therapy: Metastatic [facility]: Pembrolizumab Response to Drug Associated with Detected Alterations: Primary sensitivity Alteration(s) Detected: TMB-High Condition: Neuroendocrine Carcinoma Other Relevant Information: Indicated for unresectable or metastatic tumor mutational burden-high (?10 mutations/megabase) solid tumors with progression following prior treatment and no satisfactory alternative treatment options. Line of Therapy: [facility]astatic [facility]: Pembrolizumab Response to Drug Associated with Detected Alterations: Primary sensitivity Alteration(s) Detected: TMB-High Condition: Uveal Melanoma Other Relevant Information: Indicated for unresectable or metastatic tumor mutational burden-high (?10 mutations/megabase) solid tumors with progression following prior treatment and no satisfactory alternative treatment options. Line of Therapy: Metastatic Source: FDA Drug: Pembrolizumab Response to Drug Associated with Detected Alterations: Primary sensitivity Alteration(s) Detected: TMB-High Condition: Head And Neck Cancer Other Relevant Information: Indicated for unresectable or metastatic tumor mutational burden-high (?10 mutations/megabase) solid tumors with progression following prior treatment and no satisfactory alternative treatment options. Line of Therapy: Metastatic Source: [facility] Drug: Pembrolizumab Response to Drug Associated with Detected Alterations: Primary sensitivity Alteration(s) Detected: TMB-High Condition: Esophageal Cancer Other Relevant Information: Indicated for unresectable or metastatic tumor mutational burden-high (?10 mutations/megabase) solid tumors with progression following prior treatment and no satisfactory alternative treatment options. Line of Therapy: Metastatic Source: FDA Drug: Pembrolizumab Response to Drug Associated with Detected Alterations: Primary sensitivity Alteration(s) Detected: TMB-High Condition: Mesothelioma Other Relevant Information: Indicated for unresectable or metastatic tumor mutational burden-high (?10 mutations/megabase) solid tumors with progression following prior treatment and no satisfactory alternative treatment options. Line of Therapy: Metastatic Source: FDA Drug: Pembrolizumab Response to Drug Associated with Detected Alterations: Primary sensitivity Alteration(s) Detected: TMB-High Condition: Germ Cell Tumor Other Relevant Information: Indicated for unresectable or metastatic tumor mutational burden-high (?10 mutations/megabase) solid tumors with progression following prior treatment and no satisfactory alternative treatment options. Line of Therapy: Metastatic Source: FDA Drug: Pembrolizumab Response to Drug Associated with Detected Alterations: Primary sensitivity Alteration(s) Detected: TMB-High Condition: Skin Squamous Cell Carcinoma Other Relevant Information: Indicated for unresectable or metastatic tumor mutational burden-high (?10 mutations/megabase) solid tumors with progression following prior treatment and no satisfactory alternative treatment options. Line of Therapy: Metastatic Source: FDA Drug: Pembrolizumab Response to Drug Associated with Detected Alterations: Primary sensitivity Alteration(s) Detected: TMB-High Condition: Soft Tissue Sarcoma Other Relevant Information: Indicated for unresectable or metastatic tumor mutational burden-high (?10 mutations/megabase) solid tumors with progression following prior treatment and no satisfactory alternative treatment options. Line of Therapy: [facility]astatic [facility] Drug: Pembrolizumab Response to Drug Associated with Detected Alterations: Primary sensitivity Alteration(s) Detected: TMB-High Condition: Anal Carcinoma Other Relevant Information: Indicated for unresectable or metastatic tumor mutational burden-high (?10 mutations/megabase) solid tumors with progression following prior treatment and no satisfactory alternative treatment options. Line of Therapy: Metastatic Source: FDA Drug: Pembrolizumab Response to Drug Associated with Detected Alterations: Primary sensitivity Alteration(s) Detected: TMB-High Condition: Solid Neoplasm Other Relevant Information: Indicated for unresectable or metastatic tumor mutational burden-high (?10 mutations/megabase) solid tumors with progression following prior treatment and no satisfactory alternative treatment options. Line of Therapy: Metastatic Source: FDA Drug: Pembrolizumab Response to Drug Associated with Detected Alterations: Primary sensitivity Alteration(s) Detected: TMB-High Condition: Other Other Relevant Information: Indicated for unresectable or metastatic tumor mutational burden-high (?10 mutations/megabase) solid tumors with progression following prior treatment and no satisfactory alternative treatment options. Line of Therapy: Metastatic Source: FDA Drug: Pembrolizumab Response to Drug Associated with Detected Alterations: Primary sensitivity Alteration(s) Detected: TMB-High Condition: Cervical Cancer Other Relevant Information: Indicated for unresectable or metastatic tumor mutational burden-high (?10 mutations/megabase) solid tumors with progression following prior treatment and no satisfactory alternative treatment options. Line of Therapy: Metastatic Source: [facility] Drug: Pembrolizumab Response to Drug Associated with Detected Alterations: Primary sensitivity Alteration(s) Detected: TMB-High Condition: Liposarcoma Other Relevant Information: Indicated for unresectable or metastatic tumor mutational burden-high (?10 mutations/megabase) solid tumors with progression following prior treatment and no satisfactory alternative treatment options. Line of Therapy: Metastatic Source: FDA Drug: Pembrolizumab Response to Drug Associated with Detected Alterations: Primary sensitivity Alteration(s) Detected: TMB-High Condition: Retinoblastoma Other Relevant Information: Indicated for unresectable or metastatic tumor mutational burden-high (?10 mutations/megabase) solid tumors with progression following prior treatment and no satisfactory alternative treatment options. Line of Therapy: Metastatic Source: FDA Drug: Pembrolizumab Response to Drug Associated with Detected Alterations: Primary sensitivity Alteration(s) Detected: TMB-High Condition: Anaplastic Thyroid Cancer Other Relevant Information: Indicated for unresectable or metastatic tumor mutational burden-high (?10 mutations/megabase) solid tumors with progression following prior treatment and no satisfactory alternative treatment options. Line of Therapy: Metastatic [facility]: Pembrolizumab Response to Drug Associated with Detected Alterations: Primary sensitivity Alteration(s) Detected: TMB-High Condition: Liver Cancer Other Relevant Information: Indicated for unresectable or metastatic tumor mutational burden-high (?10 mutations/megabase) solid tumors with progression following prior treatment and no satisfactory alternative treatment options. Line of Therapy: Metastatic [facility] Drug: Pembrolizumab Response to Drug Associated with Detected Alterations: Primary sensitivity Alteration(s) Detected: TMB-High Condition: Bone Sarcoma Other Relevant Information: Indicated for unresectable or metastatic tumor mutational burden-high (?10 mutations/megabase) solid tumors with progression following prior treatment and no satisfactory alternative treatment options. Line of Therapy: Metastatic [facility] Drug: Pembrolizumab Response to Drug Associated with Detected Alterations: Primary sensitivity Alteration(s) Detected: TMB-High Condition: Central Nervous System Cancer Other Relevant Information: Indicated for unresectable or metastatic tumor mutational burden-high (?10 mutations/megabase) solid tumors with progression following prior treatment and no satisfactory alternative treatment options. Line of Therapy: Metastatic [facility] Drug: Pembrolizumab Response to Drug Associated with Detected Alterations: Primary sensitivity Alteration(s) Detected: TMB-High Condition: Meningioma Other Relevant Information: Indicated for unresectable or metastatic tumor mutational burden-high (?10 mutations/megabase) solid tumors with progression following prior treatment and no satisfactory alternative treatment options. Line of Therapy: Metastatic Source: FDA Drug: Pembrolizumab Response to Drug Associated with Detected Alterations: Primary sensitivity Alteration(s) Detected: TMB-High Condition: Hepatocellular Adenoma Other Relevant Information: Indicated for unresectable or metastatic tumor mutational burden-high (?10 mutations/megabase) solid tumors with progression following prior treatment and no satisfactory alternative treatment options. Line of Therapy: Metastatic Source: FDA --------- Sources: FDA: US Food and Drug Administration (www.fda.gov), NCCN = National Comprehensive Cancer Network (www.nccn.org), ASCO = [place] Society of Clinical Oncology (www.asco.org), MCG: My Cancer Genome (www.mycancergenome. org) --------- GENETIC ALTERATIONS --------- TMB STATUS --------- Biomarker: Tumor Mutation [place] (TMB) Result: TMB-High Score: 39.003 mut/Mb Therapeutic Implications*: Associated with drug response Additional Information: Compared to whole exome sequencing (MÓNICA), gene panels may overestimate tumor mutational burden (TMB) [doi.org/10.1016/j.[email or web address] nnonc.2020.09.016]. This assay?s gene panel shows an average of 2.5 mut/MB overestimation of TMB compared to MÓNICA (TCGA datasets, D=2364). This TMB bias should be taken into consideration when considering immune checkpoint targeted therapies. --------- Detected Alterations of Known or Potential Pathogenicity --------- None --------- Detected Alterations of Uncertain Significance --------- None 12/23/2023 2:17 PM CDT [facility] (LDL) Test Details --------- Coverage --------- Unless otherwise reported, >90% of coding regions in the genes ordered were sequenced at or greater than 125X depth. Genes with lower coverage are reported below, with the fraction of bases meeting minimum coverage indicated. Mutations present at low variant allele fractions (VAFs) in these low coverage regions cannot be completely excluded. --------- Methodology --------- Genomic DNA is extracted from the sample and sequencing libraries are prepared using a custom designed hybrid capture based assay (T[facility]). The enriched DNA libraries are sequenced on an Illumina MiSeq or [employer] instrument, and FASTQ files are processed through a custom developed bioinformatics pipeline to call sequence variants (single nucleotide variants and insertion-deletion variants) and calculate tumor mutation burden (TMB). Variant call files (vcf) are annotated with [employer] software and reviewed for data quality and clinical utility by genomic analysts and board certified molecular pathologists. The analytic accuracy of the assay is >99%. Gene(NM Reference): POLE ([id number]) --------- Limitations --------- This hybrid capture-based NGS assay is designed to detect single nucleotide and insertion- deletion (indel) mutations in the coding and splicing regions of the tested genes. The limit of detection sensitivity of the assay is validated to a minimum threshold of 5% variant allele fraction (VAF); however, variants with VAF below this threshold may be reported after clinical and data quality review by a molecular pathologist. Therefore the tumor cell population must comprise at least 10% of the submitted specimen to ensure sensitivity and specimens with borderline tumor cellularity may lead to false negative results. Accurate estimation of tumor mutation burden (TMB) requires tumor cellularity of at least 20%; tumor cellularity below this threshold may result in underestimation of the TMB value. Caution is advised for the interpretation of negative results in these situations, and correlation with morphology and other laboratory results is recommended. Indel mutations greater than 100 bp may not be reliably detected by this assay. Caution is indicated for clinical interpretation of reported VAF; numerous pre-analytic and analytic factors can impact the observed VAF. The tested sample has an estimated tumor percentage of 50%. --------- Disclaimer --------- This test was developed and its performance characteristics determined by the [facility], Molecular Diagnostics Laboratory. It has not been cleared or approved by the FDA. The laboratory is regulated under CLIA as qualified to perform high-complexity testing. This test is used for clinical purposes. It should not be regarded as investigational or for research. I, as the senior physician, attest that I: (i) confirmed appropriate testing, (ii) examined the relevant raw data for the specimen(s); and (iii) rendered or confirmed the interpretation(s). --------- [employer] Disclaimer --------- This report was produced using software licensed by [employer] software is designed to be used in clinical applications solely as a tool to enhance medical utility and improve operational efficiency. The use of [employer] software is not a substitute for medical judgment and [employer] in no way holds itself out as having or providing independent medical judgment or diagnostic services. [employer] is not liable with respect to any treatment or diagnosis made in connection with this report. [employer] Rules Version: [id number] [employer] Application Version: [id number]_19-10 --------- Electronic Signature --------- Electronically signed/cosigned by: Eber Boyer DR 01/06/24 12/23/2023 2:17 PM [facility] (LDL) Signout Location if Remote Report signed out at: [email or web address] 12/23/2023 2:17 PM [facility] (LDL) Fixed Tissue TOPOGRAPHY UNKNOWN / Unknown Non-blood Collection / Unknown 12/23/2023 2:17 PM CDT 12/28/2023 8:35 PM CDT Lab Non-Fv Credentialed Provider LAB - G ENOM[facility] (LDL) [facility] [address] [facility] [place] [address], [facility] * (ABNORMAL) Lipid panel reflex to direct LDL Fasting (10/31/2019 2:20 PM ESTATE CONSERVATOR) Cholesterol 168 <200 mg/dL 11/01/2019 9:46 AM ESTATE CONSERVATOR [facility] Triglycerides 204(H) <150 mg/dL 11/01/2019 9:46 AM [facility] Comment: Borderline high: ??150-199 mg/dl High: ? 200-499 mg/dl Very high: ? >499 mg/dl HDL Cholesterol 41(L) >49 mg/dL 0 9:47 AM [facility] LDL Cholesterol Calculated 86 <100 mg/dL 11/01/2019 9:47 AM [facility] Comment:Desirable: <100 mg/d l Non HDL Cholesterol 127 <130 mg/dL 11/01/2019 9:47 AM [facility] Blood specimen (specimen) 10/31/2019 2:20 PM ESTATE CONSERVATOR 10/31/2019 2:21 PM ESTATE CONSERVATOR Jazzy Dewitt PA-C LAB - BL OOD ORDERABLES Performing Organization Address City/[facility]/ZIP Co de Phone Number [facility] [address] [place] [address], [facility] [phone] * (ABNORMAL) Hemoglobin A1c (10/31/2019 2:20 PM ESTATE CONSERVATOR) Hemoglobin A1C 8.7(H) 0 - 5.6 % 10/31/2019 2:36 PM ESTATE CONSERVATOR [facility] Comment: Results confirmed by repeat test Normal <5.7% Prediabetes 5.7-6.4% ??Diabetes 6.5% or higher - adopted from ADA consensus guidelines. Blood specimen (specimen) 10/31/2019 2:20 PM ESTATE CONSERVATOR 10/31/2019 2:21 PM ESTATE CONSERVATOR Jazzy Dewitt PA-C LAB - BL OOD ORDERABLES [facility] [address] [place] [address] * (ABNORMAL) Comprehensive metabolic panel (10/31/2019 2:20 PM ESTATE CONSERVATOR) Sodium 136 133 - 144 mmol/L 11/01/2019 9:17 AM [facility] Potassium 4.5 3.4 - 5.3 mmol/L 11/01/2019 9:17 AM [facility] Chloride 103 94 - 109 mmol/L 11/01/2019 9:17 AM [facility] Carbon Dioxide 28 20 - 32 mmol/L 11/01/2019 9:39 AM [facility] Anion Gap 5 3 - 14 mmol/L 11/01/2019 9:39 AM [facility] Glucose 283(H) 70 - 99 mg/dL 11/01/2019 9:39 AM [facility] Urea Nitrogen 16 7 - 30 mg/dL 11/01/2019 9:39 AM [facility] Creatinine 0.67 0.52 - 1.04 mg/dL 11/01/2019 9:39 AM [facility] GFR Estimate >90 >60 mL/min/{1 .73_m2} 11/01/2019 9:39 AM [facility] Comment: Non GFR Calc Starting 08/30/2018, serum creatinine based estimated GFR (eGFR) will be calculated using the Chronic Kidney Disease Epidemiology Collaboration (CKD-EPI) equation. GFR Estimate If Black >90 >60 mL/min/{1 .73_m2} 11/01/2019 9:39 AM [facility] Comment: GFR Calc Starting 08/30/2018, serum creatinine based estimated GFR (eGFR) will be calculated using the Chronic Kidney Disease Epidemiology Collaboration (CKD-EPI) equation. Calcium 9.1 8.5 - 10.1 mg/dL 11/01/2019 9:39 AM [facility] Bilirubin Total 0.3 0.2 - 1.3 mg/dL 11/01/2019 9:46 AM [facility] Albumin 3.8 3.4 - 5.0 g/dL 11/01/2019 9:46 AM [facility] Protein Total 7.7 6.8 - 8.8 g/dL 11/01/2019 9:46 AM [facility] Alkaline Phosphatase 81 40 - 150 U/L 11/01/2019 9:46 AM [facility] ALT 23 0 - 50 U/L 11/01/2019 9:46 AM [facility] AST 12 0 - 45 U/L 11/01/2019 9:46 AM [facility] Blood specimen (specimen) 10/31/2019 2:20 PM ESTATE CONSERVATOR 10/31/2019 2:21 PM ESTATE CONSERVATOR Jazzy Dewitt PA-C LAB - BL OOD ORDERABLES [facility] [address] [place], [place] [address] [phone] [facility] [address] [place] [address] * MAMMOGRAM - HIM SCAN (06/20/2015 12:00 AM CDT) Anatomical Region Laterality Modality Other 06/20/2015 Provider Outside IMG MAMMOGRAPHY [place] * COLONOSCOPY - HIM SCAN (05/28/2011 12:00 AM CDT) 05/28/2011 Provider Outside PROCEDURES from Last 3 Months or Most Recently Relevant to Health Maintenance Advance Directives For more information, please contact: [phone] * Full Code (Latest Code Status on File) Date Activated Date Inactivated Comments 08/08/2013 10:56 AM * Full Code Date Activated Date Inactivated Comments 08/07/2013 7:10 PM 08/08/2013 10:56 AM Care Teams Buyers' Agent Relationship Specialty Start Date End Date [facility] [place] [address] PCP - General 08/07/13
--- OUTSIDE RECORDS SUMMARY | 2024-03-20 11:32 | XMS_ITS | Clinical Summary ---
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) Take 2 tablets (20 [...] Comments Blood Pressure 120/72 11/03/2019 1:48 PM [facility] Pulse 116 11/03/2019 1:48 PM [facility] Temperature 37.7 ??C (99.9 ??F) 11/03/2019 1:48 PM CS T Respiratory Rate 26 11/03/2019 1:48 PM [facility] Oxygen Saturation 97% 11/03/2019 1:48 PM [facility] Inhaled Oxygen Concentration - - Weight 106.1 kg (234 lb) 11/03/2019 1:48 PM [facility] Height 172.7 cm (5' 8) 11/03/2019 1:48 PM [facility] Body Mass Index 35.58 11/03/2019 1:48 PM [facility] Plan of Treatment Not on file Procedures Procedure Name Priority Date/Time Associated Diagnosis Comments NEXT GENERATION SEQUENCING ONCOLOGY Routine 12/23/2023 2:17 PM CDT LIPID REFLEX TO DIRECT LDL PANEL Routine 10/31/2019 2:20 PM [facility] Type 2 diabetes mellitus with other specified complication, unspecified whether longterm insulin use (H) COMPREHENSIVE METABOLIC PANEL Routine 10/31/2019 2:20 PM [facility] Type 2 diabetes mellitus with other specified complication, unspecified whether longterm insulin use (H) HEMOGLOBIN A1C Routine 10/31/2019 2:20 PM [facility] Type 2 diabetes mellitus with other specified complication, unspecified whether longterm insulin use (H) MAMMOGRAM - HIM SCAN 06/20/2015 12:00 AM CDT COLONOSCOPY - HIM SCAN 12:00 AM CDT from Last 3 Months or Most Recently Relevant to Health Maintenance Results * Oncology Single Gene NGS Tissue (12/23/2023 2:17 PM CDT) Specimen Description Tissue: Fixed slides-collected 12/23/23, Uterus,cervix, bilateral fallopian tubes and ovaries, frozen on the uterus, [id number] 12/23/2023 2:17 PM CDT Active Implants ([facility]) Significant Results Detected Alterations of Known or Potential Pathogenicity: None TMB Score: 39.003 mut/Mb 12/23/2023 2:17 PM CDT [facility] (LDL) Interpretation No mutations were detected in POLE. The TMB is elevated in the context of wildtype POLE; correlation with mismatch repair protein IHC results on the concurrent surgical pathology specimen is recommended. Correlation with morphology, IHC, and clinical features is recommended to confirm the final molecular subtype assignment. --------- Genes tested by Custom Panel V3 ([employer]): POLE --------- DRUG RESPONSE --------- Drugs Associated [...] alternative options. Line of Therapy: Metastatic Source: [facility] Drug: Nivolumab, Ipilimumab Response to Drug Associated with Detected Alterations: Primary sensitivity Alteration(s) Detected: TMB-High Condition: Pancreatic Cancer Other Relevant Information: NCCN recommended as subsequent line therapy for TMB-high locally advanced, metastaic, or recurrent pancreatic adenocarcinoma. Line of Therapy: [facility]astatic [facility]: Nivolumab, Ipilimumab Response to Drug Associated with Detected Alterations: Primary sensitivity Alteration(s) Detected: TMB-High Condition: Cholangiocarcinoma Other Relevant Information: NCCN recommended as first or subsequent line therapy for TMB-high biliary tract carcinoma. Line of Therapy: Metastatic [facility] Drug: Nivolumab, Ipilimumab Response to Drug Associated with Detected Alterations: Primary sensitivity Alteration(s) Detected: TMB-High Condition: Liver Cancer Other Relevant Information: NCCN recommended as first or subsequent line therapy for TMB-high hepatocellular carcinoma. Line of Therapy: Metastatic Source: [facility] Drug: Nivolumab, Ipilimumab Response to Drug Associated with Detected Alterations: Primary sensitivity Alteration(s) Detected: TMB-High Condition: Soft Tissue Sarcoma Other Relevant Information: NCCN recommended with or without ipilimumab for unresectable or metastatic TMB-high soft tissue sarcomas that have progressed on prior treatment and who have no satisfactory alternative treatment options. Line of Therapy: Metastatic [facility] Drug: Nivolumab Response to Drug Associated with Detected Alterations: Primary sensitivity Alteration(s) Detected: TMB-High Condition: Glioma Other Relevant Information: NCCN recommended for recurrent or progressive pediatric high-grade diffuse glioma that is TMB-High. Line of Therapy: Metastatic Source: [facility] Drug: Pembrolizumab Response to Drug Associated with [...] treatment options. Line of Therapy: [facility]astatic [facility]: Pembrolizumab Response to Drug Associated with Detected Alterations: Primary sensitivity Alteration(s) Detected: TMB-High Condition: Breast Cancer Other Relevant Information: Indicated for unresectable or metastatic tumor mutational burden-high (?10 mutations/megabase) solid tumors with progression following prior treatment and no satisfactory alternative treatment options. Line of Therapy: [facility]astatic [facility]: Pembrolizumab Response to Drug Associated with Detected Alterations: Primary sensitivity Alteration(s) Detected: TMB-High Condition: GIST Other Relevant Information: Indicated for unresectable or metastatic tumor mutational burden-high (?10 mutations/megabase) solid tumors with progression following prior treatment and no satisfactory alternative treatment options. Line of Therapy: Metastatic Source: [facility] Drug: Pembrolizumab Response to Drug Associated with Detected Alterations: Primary sensitivity Alteration(s) Detected: TMB-High Condition: Thymic Carcinoma Other Relevant Information: Indicated for unresectable or metastatic tumor mutational burden-high (?10 mutations/megabase) solid tumors with progression following prior treatment and no satisfactory alternative treatment options. Line of Therapy: Metastatic Source: [facility] Drug: Pembrolizumab Response to Drug Associated with Detected Alterations: Primary sensitivity Alteration(s) Detected: TMB-High Condition: Medullary Thyroid Cancer Other Relevant Information: Indicated for unresectable or metastatic tumor mutational burden-high (?10 mutations/megabase) solid tumors with progression following prior treatment and no satisfactory alternative treatment options. Line of Therapy: [facility]astatic [facility]: Pembrolizumab Response to Drug Associated with [...] treatment options. Line of Therapy: Metastatic Source: [facility] Drug: Pembrolizumab Response to Drug Associated with [...] treatment options. Line of Therapy: [facility]astatic [facility]: Pembrolizumab Response to Drug Associated with Detected Alterations: Primary sensitivity Alteration(s) Detected: TMB-High Condition: Small Intestine Cancer Other Relevant Information: Indicated for unresectable or metastatic tumor mutational burden-high (?10 mutations/megabase) solid tumors with progression following prior treatment and no satisfactory alternative treatment options. Line of Therapy: Metastatic [facility] Drug: Pembrolizumab Response to Drug Associated with Detected Alterations: Primary sensitivity Alteration(s) Detected: TMB-High Condition: Prostate Cancer Other Relevant Information: Indicated for unresectable or metastatic tumor mutational burden-high (?10 mutations/megabase) solid tumors with progression following prior treatment and no satisfactory alternative treatment options. Line of Therapy: [facility]astatic [facility] Drug: Pembrolizumab Response to Drug Associated with Detected Alterations: Primary sensitivity Alteration(s) Detected: TMB-High Condition: Papillary Thyroid Cancer Other Relevant Information: Indicated for unresectable or metastatic tumor mutational burden-high (?10 mutations/megabase) solid tumors with progression following prior treatment and no satisfactory alternative treatment options. Line of Therapy: [facility]astatic [facility] Drug: Pembrolizumab Response to Drug Associated with Detected Alterations: Primary sensitivity Alteration(s) Detected: TMB-High Condition: Follicular Thyroid Cancer Other Relevant Information: Indicated for unresectable or metastatic tumor mutational burden-high (?10 mutations/megabase) solid tumors with progression following prior treatment and no satisfactory alternative treatment options. Line of Therapy: [facility]astatic [facility]: Pembrolizumab Response to Drug Associated with Detected Alterations: Primary sensitivity Alteration(s) Detected: TMB-High Condition: Neuroendocrine Carcinoma Other Relevant Information: Indicated for unresectable or metastatic tumor mutational burden-high (?10 mutations/megabase) solid tumors with progression following prior treatment and no satisfactory alternative treatment options. Line of Therapy: [facility]astatic [facility] Drug: Pembrolizumab Response to Drug Associated with [...] treatment options. Line of Therapy: Metastatic Source: [facility] Drug: Pembrolizumab Response to Drug Associated with [...] treatment options. Line of Therapy: Metastatic Source: [facility] Drug: Pembrolizumab Response to Drug Associated with [...] treatment options. Line of Therapy: Metastatic Source: [facility] Drug: Pembrolizumab Response to Drug Associated with [...] treatment options. Line of Therapy: Metastatic [facility] Drug: Pembrolizumab Response to Drug Associated with Detected Alterations: Primary sensitivity Alteration(s) Detected: TMB-High Condition: Liver Cancer Other Relevant Information: Indicated for unresectable or metastatic tumor mutational burden-high (?10 mutations/megabase) solid tumors with progression following prior treatment and no satisfactory alternative treatment options. Line of Therapy: Metastatic [facility] Drug: Pembrolizumab Response to Drug Associated with Detected Alterations: Primary sensitivity Alteration(s) Detected: TMB-High Condition: Bone Sarcoma Other Relevant Information: Indicated for unresectable or metastatic tumor mutational burden-high (?10 mutations/megabase) solid tumors with progression following prior treatment and no satisfactory alternative treatment options. Line of Therapy: Metastatic [facility] Drug: Pembrolizumab Response to Drug Associated with Detected Alterations: Primary sensitivity Alteration(s) Detected: TMB-High Condition: Central Nervous System Cancer Other Relevant Information: Indicated for unresectable or metastatic tumor mutational burden-high (?10 mutations/megabase) solid tumors with progression following prior treatment and no satisfactory alternative treatment options. Line of Therapy: Metastatic [facility]: Pembrolizumab Response to Drug Associated with [...] National Comprehensive Cancer Network (www.nccn.org), ASCO = [place] Society of Clinical Oncology (www.asco.org), MCG: My Cancer Genome (www.mycancergenome. org) --------- GENETIC ALTERATIONS --------- TMB STATUS --------- Biomarker: Tumor Mutation [place] (TMB) Result: TMB-High Score: 39.003 mut/Mb Therapeutic Implications*: Associated with drug response Additional Information: Compared to whole exome sequencing (MÓNICA), gene panels may overestimate tumor mutational burden (TMB) [doi.org/10.1016/j.a nnonc.2020.09.016]. This assay?s gene panel shows an average of 2.5 mut/MB overestimation of TMB compared to MÓNICA (TCGA datasets, U=5043). This TMB bias should be taken into [...] a custom designed hybrid capture based assay ([employer]). The enriched DNA libraries are sequenced on an Illumina MiSeq or [employer]ork[employer] instrument, and FASTQ files are processed through a custom developed bioinformatics pipeline to call sequence variants (single nucleotide variants and insertion-deletion variants) and calculate tumor mutation burden (TMB). Variant call files (vcf) are annotated with [employer] software and reviewed for data quality and [...] and its performance characteristics determined by the [facility], [facility]. It has [...] (iii) rendered or confirmed the interpretation(s). --------- Gen[employer] Limitedcology Disclaimer --------- This report was produced using software licensed by [employer]. [employer] software is designed to be used in clinical applications solely as a tool to enhance medical utility and improve operational efficiency. The use of [employer] software is not a substitute for medical judgment and [employer] in no way holds itself out as having or providing independent medical judgment or diagnostic services. [employer] is not liable with respect to any treatment or diagnosis made in connection with this report. NubimetricslogBiancaMed Rules Version: [id number] [employer] Application Version: [id number] --------- Electronic Signature --------- Electronically signed/cosigned [...] MOLECULAR DIAGNOSTICS (LDL) [facility] [address], [address] [place] [address], [facility] * (ABNORMAL) Lipid panel reflex to direct LDL Fasting (10/31/2019 2:20 PM [facility]) Cholesterol 168 <200 mg/dL 11/01/2019 9:46 AM [facility] Triglycerides 204(H) <150 mg/dL 11/01/2019 9:[address] [facility] Comment: Borderline high: ??150-199 mg/dl High: ? 200-499 mg/dl Very high: ? >499 mg/dl HDL Cholesterol 41(L) >49 mg/dL 0 9:[address] [facility] LDL Cholesterol Calculated 86 <100 mg/dL 11/01/2019 9:[address] [facility] Comment:Desirable: <100 mg/d l Non HDL Cholesterol 127 <130 mg/dL 11/01/2019 9:[address] [facility] Blood specimen (specimen) 10/31/2019 2:20 PM [facility] 10/31/2019 2:21 PM [facility] Jazzy Dewitt PA-C LAB - BL OOD ORDERABLES Performing Organization Address City/[facility]/ZIP Co de Phone Number [facility] [address] [place] [address], [facility] [phone] * (ABNORMAL) Hemoglobin A1c (10/31/2019 2:20 PM [facility]) Hemoglobin A1C 8.7(H) 0 - 5.6 % 10/31/2019 2:36 PM [facility] Comment: Results confirmed by repeat test Normal <5.7% Prediabetes 5.7-6.4% ??Diabetes 6.5% or higher - adopted from ADA consensus guidelines. Blood specimen (specimen) 10/31/2019 2:20 PM [facility] 10/31/2019 2:21 PM [facility] Jazzy Dewitt PA-C LAB - BL OOD ORDERABLES [facility] [address] [place] [address] * (ABNORMAL) Comprehensive metabolic panel (10/31/2019 2:20 PM [facility]) Sodium 136 133 - 144 mmol/L 11/01/2019 9:17 AM [facility] Potassium 4.5 3.4 - 5.3 mmol/L 11/01/2019 9:17 AM [facility] Chloride 103 94 - 109 mmol/L 11/01/2019 9:17 AM [facility] Carbon Dioxide 28 20 - 32 mmol/L 11/01/2019 9:39 AM [facility] Anion Gap 5 3 - 14 mmol/L 11/01/2019 9:39 AM [facility] Glucose 283(H) 70 - 99 mg/dL 11/01/2019 9:39 AM [facility] Urea Nitrogen 16 7 - 30 mg/dL 11/01/2019 9:39 AM [facility] Creatinine 0.67 0.52 - 1.04 mg/dL 11/01/2019 9:39 AM [facility] GFR Estimate >90 >60 mL/min/{1 .73_m2} 11/01/2019 9:39 AM [facility] Comment: Non GFR Calc Starting 08/30/2018, serum creatinine based estimated GFR (eGFR) will be calculated using the Chronic Kidney Disease Epidemiology Collaboration (CKD-EPI) equation. GFR Estimate If Black >90 >60 mL/min/{1 .73_m2} 11/01/2019 9:39 AM [facility] Comment: GFR Calc Starting 08/30/2018, serum creatinine based estimated GFR (eGFR) will be calculated using the Chronic Kidney Disease Epidemiology Collaboration (CKD-EPI) equation. Calcium 9.1 8.5 - 10.1 mg/dL 11/01/2019 9:39 AM [facility] Bilirubin Total 0.3 0.2 - 1.3 mg/dL 11/01/2019 9:[address] [facility] Albumin 3.8 3.4 - 5.0 g/dL 11/01/2019 9:[address] [facility] Protein Total 7.7 6.8 - 8.8 g/dL 11/01/2019 9:[address] [facility] Alkaline Phosphatase 81 40 - 150 U/L 11/01/2019 9:[address] [facility] ALT 23 0 - 50 U/L 11/01/2019 9:[address] [facility] AST 12 0 - 45 U/L 11/01/2019 9:[address] [facility] Blood specimen (specimen) 10/31/2019 2:20 PM [facility] 10/31/2019 2:21 PM [facility] Jazzy Dewitt PA-C LAB - BL OOD ORDERABLES [facility] [address], [place] [address] [phone] [facility] [address] [place] [address] * MAMMOGRAM - HIM SCAN (06/20/2015 12:00 AM CDT) Anatomical Region Laterality Modality Other 06/20/2015 Provider Outside IMG MAMMOGRAPHY [place] * COLONOSCOPY - HIM SCAN (05/28/2011 12:00 AM CDT) 05/28/2011 Provider Outside PROCEDURES from Last 3 Months or Most Recently Relevant to Health Maintenance Advance Directives For more information, please contact: [phone] * Full Code (Latest Code Status on File) Date Activated Date Inactivated Comments 08/08/2013 10:56 AM * Full Code Date Activated Date Inactivated Comments 08/07/2013 7:10 PM 08/08/2013 10:56 AM Care Teams Fisher [employer] Relationship Specialty Start Date End Date [facility] [place] [address] PCP - General 08/07/13
--- OUTSIDE RECORDS SUMMARY | 2024-03-20 11:33 | XMS_ITS | Continuity of Care Document ---
Author Organization [facility] Address [address] [place] [address] Phone Care Team Providers Care Director Workers Compensation Name Role Phone Luciano Ramey MD Unavailable Unavailable Allergies, Adverse Reactions, Alerts Substance Reaction Status Criticality codeine Rash Active No Information aspirin Difficulty breathing Active No Info rmation ibuprofen Anaphylaxis Active No Information Medications Medication Instructions Dosage Effective Dates (start - stop) Status Comments Advair Diskus 250 mcg-50 mcg/dose powder for inhalation inhale 1 puff by inhalation route 2 times every day 1 puff - Active Nasonex 50 mcg/actuation Musella spray 2 spray by intranasal route 2 times every day in each nostril 2 spray - Active metformin 500 mg tablet take 2 tablet by oral route every day 1000 MG - Active amoxicillin 875 mg tablet take 1 tablet by oral route every 12 hours 875 MG - Active multivitamin tablet take 1 tablet by ora l route every day with food - Active vitamin B complex tablet take 1 by Oral route every day 1 - Active Vitamin D3 2,000 unit tablet take 1 Tablet by Oral route every day 1 Tablet - Active iron 325 mg (65 mg iron) tablet take 1 Tablet by Oral route every day 1 Tablet - Active fish oil-dha-epa 1,200 mg-144 mg-216 mg capsule take 1 Tablet by Oral route every day 1 Tablet - Active turmeric root extract 500 mg capsule take 1 capsule by oral route every day 1 capsule - Active Procedures Procedure Date Office Consultation Routine Venipuncture CCP Antibody Rheumatoid Factor, IGM Rheumatoid Factor, IGG, IGA Results Test Name Date and Time Measure Units Reference Range Abnormal Flag Status Commen ts Panel Description: CCP Final cCP 14:26:00 0.2 U/mL 0.0-5.0 Final Panel Description: RF/3 Final RF IgM 16:13:00 9.0 IU/mL 0.0-25.0 Final RF IgA 16:13:00 6.0 Units/mL 0.0-35.0 Final RF IgG 16:13:00 9.0 Units/mL 0.0-20.0 Final Advance Directives Directive Yes / No Effective Date File Name No Information Encounters Encounter Description Practice Location Reason(s) For Visit Diagnoses Date Provider Providers Copied on Encounter Office Consultation [facility] , [address], [place], [address], [place] tel:[phone] [facility] , Joint Pain (chief complaint) Pain in joint involving multiple sitesMyalgia Elevated ESR Karoline Wolf. [facility] [address], [place], [address], [place]. tel:[phone] Referring Provider: Luciano Harmon, [facility] [address], [place], [address]. tel:[phone] [facility] , [address], [place], [address], [place] tel:[phone] [facility] , No Information Karoline Wolf. [facility] [address], [place], [address], [place]. tel:[phone] Family History Family Member Type Diagnosis Age At Onset Problem (finding) No family hist ory of Rheumatoid arthritis Payers Payer name Insurance type Covered green party ID Authoriza tion(s) [facility] [facility] [id number] Social History Type Description Quantity Date Captured Comments Alcohol Use Details No Caffeine Use Details coffee and tea 2-3 cups per day Tobacco Use Status Never smoked tobacco 2014 Smoking Status Never smoker Non-Smoking Tobacco Use Details : No Details Available : No Details Available Sex Female Vital Signs Date / Time: Height Weight BMI Pulse Rate Blood Pressure Temperature Respiratory Rate Body Surface Area Head Circumference Head Circ. Percentile Wt./Pedro. Percentile BMI percentile Pulse Ox Inhaled Ox 12:00 PM 67.25 in 101.605 kg (224.00 lbs) 34.8 2 kg/m eter (2) 134/80 mm[Hg] 98.90 F Chief Complaint And Reason For Visit From encounter dated '04/24/2015 12:00'. Joint Pain (chief complaint) Reason For Referral Reason For Referral No Information History Of Present Illness Encounter Date Complaint History Of Prese nt Illness Joint Pain Functional Status Date Functional Assessmen t No Information Instructions Date Instruction Additional Infor mation No Information Assessments Type Assessment Date assessment Pain in joint involving multiple sites assessment Myalgia assessment Elevated ESR Patient Care Teams Name Effective Dates (start - stop) Status Members No Information
--- OUTSIDE RECORDS SUMMARY | 2024-03-20 11:33 | XMS_ITS | Clinical Summary ---
Author Organization [facility] [employer] [facility] Address [place], [place] [address] Care Team Providers Care Senior Engineer Name Role Phone Sona Fink PA-C Primary Care Provider [phone] Allergies Active Allergy Reactions Criticality Noted Date Comments Amoxicillin Rash 12/22/2023 Aspirin Bronchospasm,Wheezing High 03/04/2006 asmatic Codeine Hives 11/02/2005 Epinephrine Tremors 12/22/2023 Ibuprofen Anaphylaxis High 10/28/2012 Liraglutide Diarrhea 12/22/2023 Penicillins Hives,Itching,Edema 10/29/2006 Prednisone Tachycardia Medium 07/22/2020 Hydrocodone-Acetaminophen Nausea Only 6 Medications Medication Sig Dispensed Refills Start Date End Date Status CYCLOBENZAPRINE 10 MG TAB Take 5 mg by mouth at bedtime if needed. 0 01/27/2007 Active BLOOD GLUCOSE TEST STRIPS use as directed 3 months 1 01/27/2007 Active FLONASE 50 MCG/ACTUATION NASAL SPRAY AEROSOLIndications: Chronic rhinitis inhale 1 spray in each nostril by nasal route once daily 1 3 06/21/2007 Active Additional Information Patient taking differently: 2 SprayNasalDAILY, Informant: Other Medical Records, Reported on 12/22/2023 ALBUTEROL SULFATE 2.5 MG/3 ML NEB SOLUTIONIndications [...] Active metFORMIN (GLUCOPHAGE) 500 mg tablet Take 2,000 mg by mouth once daily. 10/31/2019 Active glipiZIDE extended-release (GLUCOTROL XL) 10 mg Extended-Release tablet Take 10 mg by mouth once daily. 10/31/2019 Active rosuvastatin (CRESTOR) 10 mg tablet Take 10 mg by mouth at bedtime. 05/13/2020 Active lisinopriL (PRINIVIL; ZESTRIL) 10 mg tablet Take 20 mg by mouth once daily. 07/11/2020 Active famotidine (PEPCID) 20 mg tablet Take 20 mg by mouth once daily. Take 20 mg by mouth once daily. 11/28/2021 Active metoprolol succinate (TOPROL XL) 25 mg Sustained-Release tabletIndications:P alpitations,Heart palpitations Take 1 Tablet (25 mg) by mouth once daily. 90 Tablet 3 02/04/2023 Active amLODIPine (NORVASC) 5 mg tablet Take 5 mg by mouth once daily. 11/25/2023 Active [employer] G6 Wood Flour Miller for continuous blood glucose monitor (CGM) As directed for coninuous glucose monitoring* 09/30/2023 Active Jardiance 10 mg tablet Take 10 mg by mouth once daily. 12/07/2023 Active albuterol-ipratropi um (DUONEB) (2.5-0.5 mg) in 3 mL NEBULIZATION solution Inhale 1 Neb via a nebulizer every 4 hours if needed. Active pantoprazole (PROTONIX) 20 mg tablet Take 20 mg by mouth once daily before a meal. 11/26/2023 Active oxyCODONE (ROXICODONE) 5 mg immediate release tabletIndications:P ost-op pain Take 1 Tablet (5 mg) by mouth every 4 hours if needed for Pain. 8 Tablet 12/23/2023 Active Active Problems Problem Noted Date Diagnosed [...] Encounters Date Type Department Care Team Description 12/23/2023 12:49 PM CDT Anesthesia Event [facility] [address] [address] Jose Luis Del Rosario, BENNY Huggins, Ritesh Jin II, CRNA 12/23/2023 11:30 AM CDT - 12/23/2023 3:[address] [facility] [address] [address] Caitlyn Rao MD ROBOTIC-ASSISTED TOTAL LAPAROSCOPIC HYSTERECTOMY, LAPAROSCOPIC BILATERAL SALPINGO-OOPHORECTOM Y, CYSTOSCOPY, PELVIC WASHING, SENTINEL LYMPH NODE DISSECTION, EUA 12/23/2023 9:41 AM CDT - 12/23/2023 11:59 PM CDT Hospital Encounter [facility] [address] [place] [address] Caitlyn Rao MD Post-op pain (Primary Dx) Discharge Disposition: Home Self Care 12/22/2023 Travel from Last 3 Months Immunizations Name Administration Dates Next Due Influenza, IIV3 (Age >=3 years) 07/23/2006,07/04,07/10/2003,08/09/2000 Family History Medical History Relation Name Comments Heart Disease Father Other Mother torsten garcia Genetic Other heart disease~stroke~hypertension~arthritis~headaches~lazy eye - son/heart disease - Mother age 50~stroke~hypertension~arthritis~headaches~lazy eye - son~Family history of:~~Breast Cancer: No~~Ovarian Cancer: No~~Colon CA: no~~Prostate CA: no~~Osteoporosis: Mother~~ ~~DM: No~~Thyroid Dz: No Relation Name Status Comments Father Maternal Grandfather Maternal Grandmother Mother Other Paternal Grandfather Paternal Grandmother Social History Tobacco Use Types Packs/Day Years Used Date Smoking Tobacco: Never Smokeless Tobacco: Never Tobacco Cessation:Counseling Given: Not Answered Alcohol Use Standard Drinks/Week Comments No 0 [...] Outcome GA Total Labor Labor/2nd/3rd Weight Sex Type Anes PTL Patrizia A1 A5 Name Clin SAB Term Term Term Term Last Filed Vital Signs Vital Sign Reading Time Taken Comments Blood Pressure 120/56 12/23/2023 6:45 PM CDT Pulse 47 12/23/2023 6:45 PM CDT Temperature 36 ??C (96.8 ??F) 12/23/2023 4:45 PM CDT Respiratory Rate 20 12/23/2023 6:45 PM CDT Oxygen Saturation 97% 12/23/2023 6:45 PM CDT Inhaled Oxygen Concentration - - Weight 91.6 kg (202 lb) 12/23/2023 10:12 AM CDT Height 170.2 cm (5' 7) 12/23/2023 10:12 AM CDT Body Mass Index 31.64 12/23/2023 10:12 AM CDT Plan of Treatment Health Maintenance Due Date Last Done Comments Pneumococcal series for age 65+ (1 of [...] day) for age 18+ 01/16/2023 01/16/2022, 07/22/2020 COVID-19 vaccine series ( season) 2023 05/12/2022, 06/27/2021, 06/06/2021 DEXA/DXA scan for age 65+ 2023 Influenza for age 65+ 05/14/2024 07/23/2006 , 07/04/2004, 07/10/2003, Additional history exists Pap test for age 21-65 08/16/2026 , 08/16/2023, 03/24/2011, Additional history exists Procedures Procedure Name Priority Date/Time Associated Diagnosis Comments SCAN CORRESP-LABORATORY RESULTS 12/28/2023 7:19 AM CDT GLUCOSE METER Timed 12/23/2023 7:21 PM CDT GLUCOSE METER Timed 12/23/2023 3:50 PM CDT PATH TISSUE EXAM Today 12/23/2023 2:17 PM CDT MLH1 AP SEND-OUT Timed 12/23/2023 2:17 PM CDT POLE AP SENDOUT TEST AND BILLING Timed 12/23/2023 2:17 PM CDT ENDOTRACHEAL TUBE Routine 12/23/2023 1:4 2 PM CDT ENDOTRACHEAL TUBE Routine 12/23/2023 1:4 2 PM CDT ENDOTRACHEAL TUBE Routine 12/23/2023 1:4 2 PM CDT PATH NON ASSEMBLER CATERPILLAR SPIDER CYTOLOGY Today 12/23/2023 1:42 PM CDT ROBOTIC ASSISTED LAPAROSCOPIC TOTAL HYSTERECTOMY XI Elective 12/23/2023 12:16 PM CDT POST MENOPAUSAL BLEEDING, endometrial cancer Special Needs WT 202 GLUCOSE METER Timed 12/23/2023 10:17 AM CDT TYPE & SCREEN Preop 12/23/2023 10:16 AM CDT OR IMAGE CAPTURE Routine 12/23/2023 10:0 5 AM CDT SCAN-CARDIAC STRIP 12/23/2023 12 :00 AM CDT SCAN CORRESP-LABORATORY RESULTS 12/21/2023 9:02 AM CDT HPV THIN PREP Routine 08/16/2023 3:45 PM FILLER PICKER LIPID PANEL Routine 01/04/2007 10:33 AM CDT Hyperlipidemia XR MAMMO SCREENING BILATERAL (IA) Routine 10/16/2003 2:32 PM FILLER PICKER from Last 3 Months or Most Recently Relevant to Health Maintenance Results * SCAN CORRESP-LABORATORY RESULTS (12/28/2023 7:19 AM CDT) Only the most recent of2 resultswithin the time period is included. Narrative 12/28/2023 7:19 AM CDT Ordered by an unspecified provider. Other Clinical Staff OTHER * (ABNORMAL) GLUCOSE METER (12/23/2023 7:21 PM CDT) Only the most recent of3 resultswithin the time period is included. GLUCOSE METER 235(H) 65 - 100 mg/dL 12/23/2023 7:26 PM CDT [facility] [employer] [facility] LAB[facility] Blood BLOOD SPECIMEN / Unknown 12/23/2023 7:21 PM CDT 12/23/2023 7:26 PM CDT Caitlyn Rao MD CHEMISTRY [facility] [address] [place] [address], [place] * POLE AP SENDOUT TEST AND BILLING (12/23/2023 2:17 PM CDT) Tissue (Uterus, Cervix, Bilateral Fallopian Tubes and Ovaries) 12/23/2023 2:17 PM CDT 12/28/2023 12:07 PM CDT Caitlyn Rao MD LABORATORY Performing Organization Address [facility] Co de Phone Number [facility] [address] [place] [id number], * MLH1 AP SEND-OUT (12/23/2023 2:17 PM CDT) Tissue (Uterus, Cervix, Bilateral Fallopian Tubes and Ovaries) 12/23/2023 2:17 PM CDT 12/29/2023 9:47 AM CDT Caitlyn Rao MD LABORATORY Performing Organization Address [facility] Co de Phone Number [facility] [address] [place] [phone], [place] * PATH TISSUE EXAM (12/23/2023 2:17 PM CDT) Case Report Pathology Report ?Case: [id number] ? Authorizing Provider: ??Caitlyn Rao ?Collected: ? 12/23/2023 1417 ? MD Billy ? Ordering Location: ? [facility] ?Received: ?12/23/2023 1428 ? Hospital ? Pathologist: ? Isaías Leong MD ? Specimens: ?? A) - Uterus, Cervix, Bilateral Fallopian Tubes and Ovaries, frozen on the uterus ? B) - Cibolo Node, left pelvic sentinel lymph node ? C) - [place] Node, right pelvic sentinel lymph node ? 4 3:06 PM CDT [email or web address]- CENTRAL LABORATORY Amendment 01/05/2024 - The tissue was sent to [facility] for MLH1 promoter methylation testing. ??See updated final diagnosis, comment, and attached report. 01/10/2024 - Tumor tissue was sent to the [facility] for POLE mutation testing. This amendment is to report the integrated histologic and molecular classification for the endometrial cancer. See the updated final diagnosis field, cancer synoptic, and attached molecular report(s). ?? 4 3:06 PM CDT [facility] [employer]- [facility]AT[facility] Final Diagnosis A) UTERUS WITH CERVIX, OVARIES, AND FALLOPIAN TUBES, TOTAL HYSTERECTOMY WITH BILATERAL SALPINGO-OOPHORECTOMY : 1. Endometrial carcinoma: ?? a. Histologic classification: ?- Subtype: Endometrioid ?- Grade: FIGO grade 2 ?? b. Molecular classification: Mismatch repair deficient ?- DNA mismatch repair enzyme immunohistochemistry: ? * Deficient ? * Loss of MLH1 and PMS2 expression ? * MLH1 promoter methylation: Present ?- p53 immunohistochemistry: Normal wild-type pattern ?- POLE mutation: No mutation detected (see attached report) ?? c. Maximum tumor size: 3.8 cm ?? d. Myometrial invasion: Present (0.1 cm / 2.3 cm [4%]) ?e. Lower uterine segment involvement: Absent ?? f. Cervical involvement: Absent ?? g. Uterine serosal involvement: Absent ?h. Angiolymphatic invasion: Absent ?i. Margins: Negative 2. Right and left ovaries and fallopian tubes are negative for carcinoma 3. Additional findings: ?? a. Adenomyosis, involved by neoplasm ?? b. Leiomyomas and lipoleiomyoma (intramural and subserosal) ?c. Uterine weight: 168 grams ?? d. Evidence of prior tubal ligation; right remnant cystically dilated 4. See synoptic section below for complete staging details B) SENTINEL LYMPH NODE, LEFT PELVIC, ??BIOPSY: 1. One lymph node, negative for malignancy (0/1) 2. Cytokeratin AE1/AE3 immunostains are negative for tumor cells C) SENTINEL LYMPH NODE, RIGHT PELVIC, ??BIOPSY: 1. One lymph node, negative for malignancy (0/1) 2. Cytokeratin AE1/AE3 immunostain is negative for tumor cells 3:06 PM [facility]- [facility]AL LABORATORY Amendment electronically signed by Abdoul Vega MD on 01/10/2024 at 3:06 PM Amendment electronically signed by Isaías Leong MD on 01/05/2024 at 10:01 AM Comment DNA MISMATCH REPAIR ENZYME STUDIES COMMENT WITH METHYLATION RESULTS Immunohistochemical analysis revealed loss of nuclear expression of DNA mismatch repair enzymes MLH1 and PMS2 and intact staining for MSH2 and MSH6. These results indicate DEFICIENT DNA MISMATCH REPAIR ENZYME FUNCTION within this tumor. Microsatellite instability (MSI) is present in nearly all such cases. Therefore, PCR testing is not typically necessary for confirmation. Additional testing revealed the presence of MLH1 promoter hypermethylation (see attached report). These results most likely represent acquired (not heritable) hypermethylation of the MLH1 gene promoter in the tumor. This is a common finding, especially in patients with older cancer onset. However, if Jansen Syndrome is strongly suspected clinically (e.g., young age <50-60 years, personal history of other Jansen syndrome-associated tumors, or suggestive family history), genetic counseling and testing for germline MLH1 promoter hypermethylation in peripheral blood would be reasonable. Please contact [facility] at [phone] if you have questions. Tumor mismatch repair deficiency has been associated with a higher likelihood of response to certain types of immunotherapy. Therefore, the patient may be eligible for such therapies in the appropriate clinical setting. ?? Select tumor slides of this case was seen in consultation with Dr. Kee, who concurs with tumor grade and depth of invaison 4 3:06 PM [facility]- [facility] LAB[facility] Clinical Information Postmenopausal bleeding with inability to sample endometrium due to cervical stenosis. 4 3:06 PM [facility] LAB[facility] Gross Description A) Received fresh, labeled with the patient's name and uterus, cervix, bilateral fallopian tubes and ovaries, frozen on the uterus, is a total hysterectomy and bilateral salpingo-oophorectomy specimen consisting of the uterus and attached cervix (10.3 cm fundus to cervix, 6.5 cm cornu to cornu, 4.3 cm anterior to posterior and 167.7 g without adnexa) and attached bilateral fallopian tubes (right: 7.0 cm long and 0.5 to 1.1 cm in diameter; left: 3.5 cm long and 0.4 to 1.1 cm in diameter) and ovaries (right: 2.4 x 1.7 x 1.1 cm and 3.4 g; left: 2.0 x 1.6 x 1.0 cm and 3.1 g). The paracervical soft tissue is inked as follows: Anterior = blue Posterior = black The uterine serosa is inked green upon sampling. The uterine serosa is pink-benito smooth minimally focally hyperemic and predominantly unremarkable with a single minimally protuberant subserosal nodule on the posterior aspect. The 4.0 x 3.0 cm cervix has a 1.0 x 0.3 cm unremarkable oval-shaped cervical os. The ectocervical mucosa is pink-benito minimally focally hyperemic and smooth with a distinct squamocolumnar junction. The endocervical canal is patent with pink-benito focally hyperemic mucosa displaying the typical striated folding pattern. ??Several smooth-walled benito gelatinous nabothian cysts (0.2 to 0.7 cm in greatest dimension) are identified subjacent to the endocervical mucosa. The triangular endometrial lining (4.7 x 3.1 and 0.1-0.3 cm thick) is pink-benito and focally hyperemic with a 3.8 x 1.4 cm friable exophytic pink-benito endometrial mass involving the right anterior/posterior uterine wall. The mass is 4.7 cm from the nearest ectocervical margin. The mass is up to 1.4 cm thick, and displays no distinct gross invasion beyond the endometrial lining into the 2.2 cm thick pink trabeculated myometrium. No cervical involvement is identified. Additionally, 3 distinct benito-white whorled subserosal/intramural nodules are identified (ranging from 0.8 to 3.3 cm in greatest dimension), none of which display evidence of hemorrhage or necrosis on cut surface. The fallopian tubes are each characterized by a pink-benito focally hyperemic smooth unremarkable serosal surface. ??A benito wrinkled cystic structure (3.0 x 1.9 x 1.0 cm) containing yellow partially gelatinous fluid is present at the distal end of the right fallopian tube, distorting the possible fimbria, which are not definitively identified. ??No distinct solid masses or excrescences identified within the cystic structure. Sectioning of the left tube reveals pink-benito rubbery mckinney and a central uniform pink-benito pinpoint to stellate lumen with no apparent luminal hemorrhage or masses. The ovaries are each characterized by a benito-yellow lobulated unremarkable external surface, and sectioning reveals benito rubbery unremarkable ovarian parenchyma with distinct corpora albicantia. ??No distinct solid mass lesions or areas of hemorrhage/necrosis are identified. A full-thickness section of the posterior uterine wall with mass (bisected; serosa inked green) is submitted on 2 chucks for frozen section analysis. Specimen images have been uploaded. Duplicating Machine Operator sections are submitted: 1-2. ??Frozen section remnants of posterior uterine wall with mass, full-thickness 3-5. ??Anterior cervix to lower uterine segment with mass (sections inked orange along superior edge) 6-8. ??Posterior cervix to lower uterine segment (sections inked orange along superior edge) 9. ??Right cornu, full-thickness 10. ??Left cornu, full-thickness 11-16. ??Anterior uterine wall with entire mass, full-thickness (sequentially from fundus to lower uterine segment; including sales representative adding machines intramural nodule) 17. ??Uninvolved anterior uterine wall, full-thickness 18-21. ??Posterior uterine wall with entire mass, full-thickness (sequentially from fundus to lower uterine segment) 22. ??Uninvolved posterior uterine wall, full-thickness 23. ??Duplicating Machine Operator remaining intramural nodules 24-25. ??Right possible fimbria with cystic structure 26-29. ??Remaining right fallopian tube cross-sections, sequentially from proximal to distal 30. ??Right ovary, sales representative adding machines 31. ??Left distal end 32-33. ??Left fallopian tube cross-sections, sequentially from proximal to distal 34. ??Left ovary, sales representative adding machines Time and date in formalin: 1502 on 12/23/2023 ADW 12/24/2023 B) Received fresh labeled with the patient's name and left pelvic sentinel lymph node, is a 1.8 x 0.9 x 0.5 cm pink-benito focally hyperemic lymph node with a small amount of adherent yellow lobulated adipose tissue, trisected to reveal pink-benito minimally focally hyperemic cut surfaces. ??The specimen is entirely submitted in 2 cassettes. C) Received fresh labeled with the patient's name and right pelvic sentinel lymph node, is a 1.5 x 1.0 x 0.7 cm pink-benito focally hyperemic lymph node with a small amount of adherent yellow lobulated adipose tissue. ??The specimen is trisected to reveal pink-benito and yellow fatty cut surfaces, and is entirely submitted in 1 cassette. ADW 12/24/2023 3:06 PM CDT [facility] Intraoperative Consultation A) UTERUS WITH CERVIX, RIGHT AND LEFT OVARIES, AND FALLOPIAN TUBES, HYSTERECTOMY WITH BILATERAL SALPINGO-OOPHORECTOMY , INTRAOPERATIVE CONSULTATION WITH FROZEN SECTION(S): [Number of frozen sections prepared: 2 chucks, 4 slides] 1. Favor endometrioid carcinoma of the endometrium: ?? a. Histologic grade: FIGO grade 1 ?? b. Gross tumor size: 3.8 cm ? c. Myometrial invasion: ??Absent ?? d. Cervical involvement: ??Absent 2. Uterine weight: 167.7 grams 3. Myometrium with leiomyomas grossly 4. Serosa, fallopian tubes and ovaries grossly benign Warren Doherty MD, 12/23/2023 2:49 PM (gross findings); 2:57 PM (microscopic findings) 4 3:06 PM [facility] Microscopic Description The final diagnosis is based on microscopic examination of appropriate sections of all specimens. 4 3:06 PM [facility] LAB[facility] SYNOPTIC REPORTING ENDOMETRIUM ENDOMETRIUM - All Specimens 8th Edition - Protocol posted: 08/26/2022 SPECIMEN ?? Procedure: ?Total hysterectomy and bilateral salpingo-oophorectomy ?? Hysterectomy Type: ?Laparoscopic, robotic-assisted ?? Specimen Integrity: ?Intact TUMOR ?? Tumor Site: ?Endometrium ?? Tumor Size: ?Greatest Dimension (Centimeters): 3.8 cm ?? Histologic Type: ?Endometrioid carcinoma, NOS ? : ?Mismatch repair-deficient endometrioid carcinoma ?? Histologic Grade: ?FIGO grade 2 ?? Myometrial Invasion: ?Present ? Depth of Myometrial Invasion: ?1 mm ? Myometrial Thickness: ?23 mm ? Percentage of Myometrial Invasion: ?4 % ?? Adenomyosis: ?Present, involved by carcinoma ?? Uterine Serosa Involvement: ?Not identified ?? Lower Uterine Segment Involvement: ?Not identified ?? Cervical Stromal Involvement: ?Not identified ?? Other Tissue / Organ Involvement: ?Not identified ?? Peritoneal / Ascitic Fluid: ?Malignant cells not identified ?? Lymphatic and / or Vascular Invasion: ?Not identified REGIONAL LYMPH NODES ?? Regional Lymph Node Status: ? : ?All regional lymph nodes negative for tumor cells ? Lymph Nodes Examined: ? Total Number of Pelvic Nodes Examined: ?2 ? Number of Pelvic Cibolo Nodes Examined: ?2 ? Total Number of Para-aortic Nodes Examined: ?0 pTNM CLASSIFICATION (AJCC 8th Edition) ?? Reporting of pT, pN, and (when applicable) pM categories is based on information available to the pathologist at the time the report is issued. As per the AJCC (Chapter 1, 8th Ed.) it is the managing physician's responsibility to establish the final pathologic stage based upon all pertinent information, including but potentially not limited to this pathology report. ?? pT Category: ?pT1a ?? pN Category: ?pN0 FIGO STAGE ?? FIGO Stage: ?IA ?? Comment(s): ?Block for ancillary testing: A15 Endometrium Biomarker Reporting Template ENDOMETRIUM: BIOMARKER REPORTING TEMPLATE - All Specimens Protocol posted: 05/23/2019 ?? Test(s) Performed: ? Immunohistochemistry (IHC) Testing for Mismatch Repair (MMR) Proteins: ? MLH1: ?Loss of nuclear expression ? Immunohistochemistry (IHC) Testing for Mismatch Repair (MMR) Proteins: ? MSH2: ?Intact nuclear expression ? Immunohistochemistry (IHC) Testing for Mismatch Repair (MMR) Proteins: ? MSH6: ?Intact nuclear expression ? Immunohistochemistry (IHC) Testing for Mismatch Repair (MMR) Proteins: ? PMS2: ?Loss of nuclear expression ? Immunohistochemistry (IHC) Testing for Mismatch Repair (MMR) Proteins: ?Background nonneoplastic tissue / internal control with intact nuclear expression ? Immunohistochemistry (IHC) Interpretation for Mismatch Repair (MMR) Proteins: ?Loss of nuclear expression of MLH1 and PMS2: testing for methylation of the MLH1 promoter is indicated (the presence of MLH1 methylation suggests that the tumor is sporadic and germline evaluation is probably not indicated; absence of MLH1 methylation suggests the possibility of Jansen syndrome, and sequencing and / or large deletion / duplication testing of germline MLH1 is indicated) ? There are exceptions to the above IHC interpretations. These results should not be considered in isolation, and clinical correlation with genetic counseling is recommended to assess the need for germline testing. ?? Test(s) Performed: ? MLH1 Promoter Methylation Analysis: ?MLH1 promoter methylation present ?? Test(s) Performed: ? p53 Expression: ?Normal expression 4 3:06 PM CDT [facility] Additional Information Integrated histologic and molecular classification of endometrial carcinomas provides valuable information for therapeutic decisions and prognosis. Molecular classification is based on testing to evaluate the status of DNA mismatch repair enzymes, p53 and/or TP53, and polymerase epsilon (POLE) in tumor tissue. POLE and TP53 testing may take several weeks to perform. These results impact the integrated tumor classification in approximately 5% of endometrial cancers. ?? ASSEMBLER CATERPILLAR SPIDER TUMOR ANCILLARY TESTING PROTOCOL This patient's sample meets [facility] [place] ASSEMBLER CATERPILLAR SPIDER oncology reflex testing criteria.* If there is a need for ancillary tests other than these, please call [facility] at [phone]. *ASSEMBLER CATERPILLAR SPIDER Oncology reflex testing criteria: - Endometrial carcinoma or carcinosarcoma will have DNA mismatch repair (MMR) enzyme immunohistochemistry (with reflex MLH1 promoter methylation testing), p53 immunohistochemistry (with reflex TP53 mutation testing), and POLE mutation testing performed. - Endometrial endometrioid carcinoma stage III/IV or recurrent will have estrogen and progesterone receptor analysis by immunohistochemistry with image analysis performed. - Endometrial carcinoma with serous component or carcinosarcoma with a serous component or p53 abnormal molecular classification will have HER2 immunohistochemistry (with reflex FISH) performed. Interpreted at [facility], Central Laboratory - [address], [place] [address] 4 3:06 PM CDT [facility] Tissue (Uterus, Cervix, Bilateral Fallopian Tubes and Ovaries) 12/23/2023 2:17 PM CDT 12/23/2023 2:28 PM CDT Tissue specimen (specimen) ([place] Node) 12/23/2023 2:29 PM CDT 12/23/2023 3:01 PM CDT Tissue specimen (specimen) ([place] Node) 12/23/2023 2:32 PM CDT 12/23/2023 3:01 PM CDT Caitlyn Rao MD PATHOLOGY/C YTOLOGY Performing Organization Address City/State/[facility] Co de Phone Number [facility] [address] [place] [address], * HCHG TUBE PR1, HCHG INSTRUMENT DISP PR10, HCHG STYLET PR1 (12/23/2023 1:42 PM CDT) Narrative Jose Luis Del Rosario CRNA - 12/23/2023 1:42 PM CDT Jose Luis Del Rosario CRNA ? 12/23/2023 ??1:43 PM Procedure: ETT Patient location during procedure: OR ETT Properties Mask Ventilation: not attempted Final Technique: direct laryngoscopy and video laryngoscopy Type: straight Location: oral Cuffed: yes Tube Size: 7.0 mm Stylet: yes Laryngoscope Blade: Glidescope Blade Size: 3 Cormack-Lehane Grade View: 1 Insertion Attempts: 1 Placement Verification: auscultation, end tidal CO2 and symmetrical chest wall movement Assessment: pharynx clear, atraumatic and dentition unchanged Secured at: 22 Measured From: teeth Difficulty: 0 (not difficult) Derik Mccord MD ANESTHESIA PX NOTE O RDERABLES * PATH NON ASSEMBLER CATERPILLAR SPIDER CYTOLOGY (12/23/2023 1:42 PM CDT) Case Report Medical Cytology Report ? Case: [id number] ? Authorizing Provider: ??Caitlyn Rao ?Collected: ? 12/23/2023 1342 ? MD Billy ? Ordering Location: ? [facility] ?Received: ?12/23/2023 1535 ? Hospital ? Pathologist: ? Eliza Lemus MD ? Specimen: ?Peritoneal Washing ? 12/27/2023 4:41 PM CDT [facility] LABORAT[facility]-C ENTRAL LABORATORY Final Diagnosis A) PERITONEAL WASHING FOR CYTOLOGY: Negative for malignancy 12/27/2023 4:41 PM CDT [facility] Clinical Information Postmenopausal bleeding 12/27/2023 4:41 PM CDT [facility] Gross Description A) SOURCE: Peritoneal washing The specimen consists of 100 cc of light yellow hazy fluid from which the following is prepared: ? -1 Papanicolaou stained ThinPrep slide 12/27/2023 4:41 PM CDT [facility] Microscopic Description Specimen adequacy: Adequate for interpretation. All slides were reviewed. The microscopic appearance substantiates the diagnosis. 12/27/2023 4:41 PM CDT [facility] Additional Information Cytology is screened at [facility] - [address] [place] [address] and [facility] - [address], [place] [address] and [facility] - [address] [place] [address] Interpreted at [facility] Laboratory - [address], [place] [address] 12/27/2023 4:41 PM CDT [facility] Washing (Peritoneal Washing) 12/23/2023 1:42 PM CDT 12/23/2023 3:35 PM CDT Caitlyn Rao MD PATHOLOGY/C YTOLOGY Performing Organization Address City/[facility] Co de Phone Number [facility] [address] [place] [address], * Type & Screen (12/23/2023 10:16 AM CDT) ABORH O Rh Negative 12/23/2023 11:23 AM CDT [facility] ANTIBODY SCREEN Negative Negative 12/23/2023 11:23 AM CDT [facility] SPECIMEN EXPIRATION DATE/TIME 12/26/23 23:59 12/23/2023 11:23 AM CDT [facility] Blood BLOOD SPECIMEN / Unknown Venipuncture / Unknown 12/23/2023 10:16 AM CDT 12/23/2023 10:38 AM CDT El[facility] SANTOS BLOOD BANK [facility] [address] [place] [address], * SCAN-CARDIAC STRIP (12/23/2023 12:00 AM CDT) Narrative 12/23/2023 12:00 AM CDT Ordered by an unspecified provider. Other Clinical Staff OTHER * HPV HIGH RISK (08/16/2023 3:45 PM FILLER PICKER) TYPE 16 Negative Negative 08/20/2023 11:20 AM FILLER PICKER [facility] TYPE 18 Negative Negative 08/20/2023 11:20 AM FILLER PICKER [facility] TRA LABORATORY OTHER HIGH RISK TYPES Negative Negative 08/20/2023 11:20 AM FILLER PICKER [facility] Other (Cervical) 08/16/2023 3:45 PM FILLER PICKER 08/18/2023 12:06 PM FILLER PICKER Narrative [facility] - 08/20/2023 11:20 AM FILLER PICKER HPV types 16, 18, 31, 33, 35, 39, 45, 51, 52, 56, 58, 59, 66 and 68 DNA were undetectable or below the pre-set threshold. Methodology: Teagan Jason 4800 HPV Test Doctor Unknown MICROBIOLOGY [facility] [address] [place] [address], * LIPID PANEL (01/04/2007 10:33 AM CDT) CHOLESTEROL,TOTAL 144 110 - 199 mg/dL [facility] TRIGLYCERIDES 105 40 - 149 mg/dL [facility] HDL CHOLESTEROL 41 >40 mg/dL [facility] CHOL/HDL RATIO 3.51 <4.51 [facility] LDL CHOLESTEROL 82 <131 mg/dL [facility] PATIENT STATUS Fasting [facility] Blood specimen (specimen) BLOOD SPECIMEN / Unknown 01/04/2007 10:33 AM CDT 01/04/2007 10:31 AM CDT Janet Melgar MD CHEMISTRY [facility] INTERNAL ZIP [address] [address] * XR MAMMO SCREENING BILATERAL (10/16/2003 2:32 PM FILLER PICKER) MAMMOGRAM Negative Anatomical Region Laterality Modality BREASTS, Breast Left, Breast Right Bilateral Mammography 10/16/2003 2:32 PM FILLER PICKER Narrative 02/22/2004 4:36 PM CDT Ordered by an unspecified provider. Other Clinical Staff MAMMO from Last 3 Months or Most Recently Relevant to Health Maintenance Advance Directives * Full Code (Latest Code Status on File) Date Activated Date Inactivated Comments 12/23/2023 9:54 AM 12/24/2023 2:31 AM Question Answer Comments Code Status Discussion: Unable to Assess Preferences, Provider to review later Care Teams Senior Engineer Relationship Specialty Start Date End Date Sona Fink PA-C [address] [place] [address] PCP - General Emergency Medicine 12/22/23
== END 2024-03-20 11:28 | disposition home or self-care (01) ==
PROVIDERS: PCP Physician Assistant Medical; Visit Provider Physician Assistant Medical
DX: E11.9 Type 2 diabetes mellitus without complications (principal); Z79.84 Long term (current) use of oral hypoglycemic drugs; Z13.29 Encounter for screening for other suspected endocrine disorder; Z13.21 Encounter for screening for nutritional disorder
CPT/HCPCS: 82043; 82570; 82607; 84443

== ENCOUNTER 2024-05-19 14:22 | Outpatient (CLI) | payer MEDICARE, SELFPAY ==
--- OUTSIDE RECORDS SUMMARY | 2024-05-19 14:24 | XMS_ITS | Clinical Summary ---
Author Organization [place] Address [address] [place] [address] Care Team Providers Care Molder Hand Name Role Phone [facility], [facility] Primary Care Provide r Allergies Active [...] mellitus with other specified complication, unspecified whether morning show producer insulin use (H) Take 1 tablet (500 mg) by mouth 2 times daily (with meals) 180 tablet 1 10/31/2019 Active glipiZIDE 10 MG PO 24 hr tabletIndications:T ype 2 diabetes mellitus with other specified complication, unspecified whether morning show producer insulin use (H) Take 2 tablets (20 [...] Comments Blood Pressure 120/72 11/03/2019 1:48 PM MEDICAL STAFF MANAGER Pulse 116 11/03/2019 1:48 PM MEDICAL STAFF MANAGER Temperature 37.7 ??C (99.9 ??F) 11/03/2019 1:48 PM CS T Respiratory Rate 26 11/03/2019 1:48 PM MEDICAL STAFF MANAGER Oxygen Saturation 97% 11/03/2019 1:48 PM MEDICAL STAFF MANAGER Inhaled Oxygen Concentration - - Weight 106.1 kg (234 lb) 11/03/2019 1:48 PM MEDICAL STAFF MANAGER Height 172.7 cm (5' 8) 11/03/2019 1:48 PM MEDICAL STAFF MANAGER Body Mass Index 35.58 11/03/2019 1:48 PM MEDICAL STAFF MANAGER Plan of Treatment Not on file Advance Directives For more information, please contact: [phone] * Full Code (Latest Code Status on File) Date Activated Date Inactivated Comments 08/08/2013 10:56 AM * Full Code Date Activated Date Inactivated Comments 08/07/2013 7:10 PM 08/08/2013 10:56 AM Care Teams Molder Hand Relationship Specialty Start Date End Date [facility] [place] [address] PCP - General 08/07/13
--- OUTSIDE RECORDS SUMMARY | 2024-05-19 14:24 | XMS_ITS | Referral Summary ---
Author Organization [place] Address [address] [place] [address] Care Team Providers Care Band Salvager Name Role Phone [facility], [facility] Primary Care Provide r Allergies Active [...] mellitus with other specified complication, unspecified whether laborer marine terminal insulin use (H) Take 1 tablet (500 mg) by mouth 2 times daily (with meals) 180 tablet 1 10/31/2019 Active glipiZIDE 10 MG PO 24 hr tabletIndications:T ype 2 diabetes mellitus with other specified complication, unspecified whether laborer marine terminal insulin use (H) Take 2 tablets (20 [...] Comments Blood Pressure 120/72 11/03/2019 1:48 PM HAND FLATWORK FINISHER Pulse 116 11/03/2019 1:48 PM HAND FLATWORK FINISHER Temperature 37.7 ??C (99.9 ??F) 11/03/2019 1:48 PM CS T Respiratory Rate 26 11/03/2019 1:48 PM HAND FLATWORK FINISHER Oxygen Saturation 97% 11/03/2019 1:48 PM HAND FLATWORK FINISHER Inhaled Oxygen Concentration - - Weight 106.1 kg (234 lb) 11/03/2019 1:48 PM HAND FLATWORK FINISHER Height 172.7 cm (5' 8) 11/03/2019 1:48 PM HAND FLATWORK FINISHER Body Mass Index 35.58 11/03/2019 1:48 PM HAND FLATWORK FINISHER Plan of Treatment Not on file Advance Directives For more information, please contact: [phone] * Full Code (Latest Code Status on File) Date Activated Date Inactivated Comments 08/08/2013 10:56 AM * Full Code Date Activated Date Inactivated Comments 08/07/2013 7:10 PM 08/08/2013 10:56 AM Care Teams Band Salvager Relationship Specialty Start Date End Date [facility] [place] [address] PCP - General 08/07/13
--- OUTSIDE RECORDS SUMMARY | 2024-05-19 14:25 | XMS_ITS | Continuity of Care Document ---
Author Organization [facility] Address [address] [place] [address] Phone Care Team Providers Care Senior Applications Architect Name Role Phone Luciano Ramey MD Unavailable [...] 1 puff - Active Nasonex 50 mcg/actuation Peytona spray 2 spray by intranasal route 2 [...] Consultants , [address], [place], [address], [place] tel:[phone] [facility] , Joint Pain (chief complaint) Pain in joint involving multiple sitesMyalgia Elevated ESR Karoline Wolf. [facility] [address], [place], [address], [place]. tel:[phone] Referring Provider: Luciano Harmon, [facility] [address], [place], [address]. tel:[phone] [facility] , [address], [place], [address], [place] tel:[phone] [facility] , No Information Karoline Wolf. [facility] [address], [place], [address], [place]. tel:[phone] Family History Family Member Type Diagnosis Age At Onset Problem (finding) No family hist ory of Rheumatoid arthritis Payers Payer name Insurance type Covered republican ID Authoriza tion(s) [facility] [id number] Social History Type Description Quantity Date Captured [...]
--- OUTSIDE RECORDS SUMMARY | 2024-05-19 14:25 | XMS_ITS | Encounter Summary ---
Author Organization [place] Address [facility] [place] [address] Care Team Providers Care Supplier Development Manager Name Role Phone [facility], [facility] Primary Care Provide r Hyun Romero MD Unavailable [phone] Hyun Romero MD Unavailable [phone] Reason for Visit * Reason Comments Medication Refill Encounter Details Date Type Department Care Team (Late st Contact Info) Description 05/06/2020 Refill [facility] [id number] [place] [id number] Jazzy Dewitt PA-C [address] [place] [address] Medication Refill Social History Tobacco [...] prescribed by another doctor. Shanon Richardson Patient Chief Fishery Division * Telephone Encounter - Chrystal Tinsley RN [...] mellitus with other specified complication, unspecified whether usp insulin use (H) documented in this encounter Care Teams Supplier Development Manager Relationship Specialty Start Date End Date [facility], [facility] [place] [address] PCP - General 08/07/13 [place] [address] [place] [address] Assigned PCP 12/10/19 08/28/22 [place] [address] [place] [address] Assigned PCP 11/07/22 11/27/22 documented as of this encounter
--- OUTSIDE RECORDS SUMMARY | 2024-05-19 14:26 | XMS_ITS | Clinical Summary ---
Author Organization [facility] Address [place], [place] [address] Care Team Providers Care Heel Shaver Name Role Phone Sona Fink PA-C Primary Care Provider Allergies Active Allergy Reactions Criticality Noted Date [...] mg by mouth once daily. 11/25/2023 Active [employer] G6 Machine Repairman for continuous blood glucose monitor (CGM) As [...] 13 Presbyopia 03/14/2007 10/28/2012 Myopia 03/14/2007 10/28/2012 Immunizations Name Administration Dates Next Due Influenza, [...] 07/22/2020 DEXA/DXA scan for age 65+ 2023 COVID-19 vaccine series ( season) 2024 05/12/2022, 06/27/2021, 06/06/2021 Influenza for age 65+ 05/14/2024 07/23/2006 , 07/04/2004, 07/10/2003, Additional history exists Pap test for age 21-65 08/16/2026 , 08/16/2023, 03/24/2011, Additional history exists Procedures Procedure Name Priority Date/Time Associated Diagnosis Comments HPV THIN PREP Routine 08/16/2023 3:45 PM SOCIAL SERVICES COORDINATOR LIPID PANEL Routine 01/04/2007 10:33 AM CDT Hyperlipidemia XR MAMMO SCREENING BILATERAL (IA) Routine 10/16/2003 2:32 PM SOCIAL SERVICES COORDINATOR from Last 3 Months or Most Recently Relevant to Health Maintenance Results * HPV HIGH RISK (08/16/2023 3:45 PM SOCIAL SERVICES COORDINATOR) TYPE 16 Negative Negative 08/20/2023 11:20 AM SOCIAL SERVICES COORDINATOR [facility] LAB[facility]AT[facility] TYPE 18 Negative Negative 08/20/2023 11:20 AM SOCIAL SERVICES COORDINATOR [facility] OTHER HIGH RISK TYPES Negative Negative 08/20/2023 11:20 AM SOCIAL SERVICES COORDINATOR [facility] Other (Cervical) 08/16/2023 3:45 PM SOCIAL SERVICES COORDINATOR 08/18/2023 12:06 PM SOCIAL SERVICES COORDINATOR Narrative [facility] - 08/20/2023 11:20 AM SOCIAL SERVICES COORDINATOR HPV types 16, 18, 31, 33, 35, 39, 45, 51, 52, 56, 58, 59, 66 and 68 DNA were undetectable or below the pre-set threshold. Methodology: Teagan Jason 4800 HPV Test Doctor Unknown MICROBIOLOGY Performing Organization Address City/State/[facility] Co de Phone Number [facility] [address] [place] [id number], * LIPID PANEL (01/04/2007 10:33 AM CDT) CHOLESTEROL,TOTAL 144 110 - 199 mg/dL [facility] TRIGLYCERIDES 105 40 - 149 mg/dL [facility] HDL CHOLESTEROL 41 >40 mg/dL [facility] CHOL/HDL RATIO 3.51 <4.51 [facility] LDL CHOLESTEROL 82 <131 mg/dL [facility] PATIENT STATUS Fasting [facility] Blood specimen (specimen) BLOOD SPECIMEN / Unknown 01/04/2007 10:33 AM CDT 01/04/2007 10:31 AM CDT Janet Melgar MD CHEMISTRY [facility] INTERNAL ZIP [address] [address] * XR MAMMO SCREENING BILATERAL (10/16/2003 2:32 PM SOCIAL SERVICES COORDINATOR) MAMMOGRAM Negative Anatomical Region Laterality Modality BREASTS, Breast Left, Breast Right Bilateral Mammography 10/16/2003 2:32 PM SOCIAL SERVICES COORDINATOR Narrative 02/22/2004 4:36 PM CDT Ordered by an unspecified provider. Other Clinical Staff MAMMO from Last 3 Months or Most Recently Relevant to Health Maintenance Advance Directives * Full Code (Latest Code Status on File) Date Activated Date Inactivated Comments 12/23/2023 9:54 AM 12/24/2023 2:31 AM Question Answer Comments Code Status Discussion: Unable to Assess Preferences, Provider to review later Care Teams Heel Shaver Relationship Specialty Start Date End Date Sona Fink PA-C [address] [place] [address] PCP - General Emergency Medicine 12/22/23
--- NOTE | 2024-05-19 14:40 | CRLHL7_ITS ---
For Patients: As a result of the Century Cures Act, medical imaging exams and procedure reports are released immediately into your electronic medical record. You may view this report before your referring provider. If you have questions, please contact your health care provider. BILATERAL SCREENING MAMMOGRAM WITH COMPUTER-AIDED DETECTION AND TOMOSYNTHESIS TECHNIQUE: CC and MLO views were obtained. These mammographic images have been obtained using full-field digital technique. These mammographic images were interpreted with the benefit of computer-aided detection. Breast Tomosynthesis was used in this interpretation. COMPARISON FILM: 02/25/22, 05/02/20, 06/20/15. FINDINGS: There are scattered areas of fibroglandular density IMPRESSION: There is no radiographic evidence for malignancy. ASSESSMENT: BI-RADS Category 1: Negative RECOMMENDATION: Routine screening mammogram in 1 year. A lay language report of this examination will be provided to the patient. Abdoul Torres M.D. Diagnostic Radiologist [email or web address] LEO/Dictated by: Abdoul Torres MD @ 05/22/2024 8:20:00 AM (Electronically Signed)
== END 2024-05-19 14:23 | disposition home or self-care (01) ==
LOC: MAMMO 14:23
PROVIDERS: PCP Physician Assistant Medical; Visit Provider Physician Assistant Medical
DX: Z12.31 Encounter for screening mammogram for malignant neoplasm of breast (principal)
CPT/HCPCS: 77063; 77067

== ENCOUNTER 2024-07-26 08:32 | Outpatient (CLI) | payer MEDICARE, SELFPAY ==
--- OUTSIDE RECORDS SUMMARY | 2024-07-26 08:35 | XMS_ITS | Referral Summary ---
Author Organization [place] Address [address] [place] [address] Care Team Providers Care Apparel Merchandiser Name Role Phone [facility] Primary Care Provide r Allergies Active Allergy Reactions Criticality Noted Date Comments Aspirin Low 08/07/2013 Codeine Phosphate Low 08/07/2013 Hydrocodone-Acetaminophen Nausea Low 11/02/2005 Ibuprofen Sodium Low 08/07/2013 Penicillins Itching Low 10/29/2006 Other reaction(s): Edema Medications albuterol 108 (90 Base) MCG/ACT IN inhaler 8 Active cyclobenzaprine 10 MG PO tablet 7 Active fluticasone 50 MCG/ACT NA nasal spray 7 Active metoprolol succinate ER 25 MG PO 24 hr tablet Take 25 mg by mouth 9 Active fluticasone-salm eterol 250-50 MCG/DOSE IN inhalerIndicatio ns:Moderate persistent asthma without complication Inhale 1 puff into the lungs every 12 hours 1 Inhaler 11 0 Active metFORMIN 500 MG PO tabletIndication s:Type 2 diabetes mellitus with other specified complication, unspecified whether prison insulin use (H) Take 1 tablet (500 mg) by mouth 2 times daily (with meals) 180 tablet 1 0 Active glipiZIDE 10 MG PO 24 hr tabletIndication s:Type 2 diabetes mellitus with other specified complication, unspecified whether computer terminal operator insulin use (H) Take 2 tablets (20 mg) by mouth daily 60 tablet 11 0 Active ipratropium - albuterol 0.5 mg/2.5 mg/3 mL (DUONEB) 0.5-2.5 (3) MG/3ML neb solutionIndicati ons:Post-viral cough syndrome,Moderat e persistent asthma with acute exacerbation Take 1 vial (3 mLs) by nebulization every 6 hours as needed for shortness of breath / dyspnea or wheezing 1 Box 1 0 Active rosuvastatin (CRESTOR) 10 MG tabletIndication s:Hyperlipidemia with target LDL less than 100 Take 1 tablet (10 mg) by mouth daily 90 tablet 1 0 Active Active Problems Problem Noted Date Diagnosed [...] School Help Needed Not on file 06/20 Comments No Sex and Gender Information Value Date Recorded Sex Assigned at Not on file Legal Sex Female 3:14 AM DIETARY CLERK Gender Identity Not on file Sexual Orientation Not on file Last Filed Vital Signs Vital Sign Reading Time Taken Comments Blood Pressure 120/72 11/03/2019 1:48 PM DIETARY CLERK Pulse 116 11/03/2019 1:48 PM DIETARY CLERK Temperature 37.7 ??C (99.9 ??F) 11/03/2019 1:48 PM CS T Respiratory Rate 26 11/03/2019 1:48 PM DIETARY CLERK Oxygen Saturation 97% 11/03/2019 1:48 PM DIETARY CLERK Inhaled Oxygen Concentration - - Weight 106.1 kg (234 lb) 11/03/2019 1:48 PM DIETARY CLERK Height 172.7 cm (5' 8) 11/03/2019 1:48 PM DIETARY CLERK Body Mass Index 35.58 11/03/2019 1:48 PM DIETARY CLERK Plan of Treatment Not on file Insurance [facility] INDIVIDUAL FAMILY PLANS WITH [employer] Advance Directives For more information, please contact: [phone] * Full Code (Latest Code Status on File) Date Activated Date Inactivated Comments 08/08/2013 10:56 AM * Full Code Date Activated Date Inactivated Comments 08/07/2013 7:10 PM 08/08/2013 10:56 AM Care Teams Apparel Merchandiser Relationship Specialty Start Date End Date [facility] [place] [address] PCP - General 08/07/13
--- OUTSIDE RECORDS SUMMARY | 2024-07-26 08:35 | XMS_ITS | Encounter Summary ---
Author Organization [place] Address [address] [place] [address]. [place] [address] Care Team Providers Care Charge Histotechnologist Name Role Phone [facility], [facility] Primary Care Provide r Hyun Romero MD Unavailable [phone] Hyun Romero MD Unavailable [phone] Reason for Visit * Reason Comments Medication Refill Encounter Details Date Type Department Care Team (Late st Contact Info) Description 05/06/2020 Refill [facility] [address] [place] [id number] Jazzy Dewitt PA-C [address] [place] [address] Medication Refill Social History Tobacco Use Types Packs/Day Years Used Date Smoking Tobacco: Never Smokeless Tobacco: Never Alcohol Use Standard Drinks/Week Comments No 0 (1 standard drink = 0.6 oz pur e alcohol) PHQ-2 Answer Date Recorded PHQ-2 Score 0 10/31/2019 Comments No Sex and Gender Information Value Date Recorded Sex Assigned at Not on file Legal Sex Female 3:14 AM ENVIRONMENTAL SCIENCE TECHNICIAN Gender Identity Not on file Sexual Orientation Not on file documented as of this encounter Miscellaneous Notes * Telephone Encounter - Shanon Richardson - 05/07/2020 9:19 AM CDT Pt called wanted to inform us that she no longer comes to this clinic. Her meds are being prescribed by another doctor. Shanon Dylan Patient Media Marketing Specialist * Telephone Encounter - Chrystal Tinsley RN [...] mellitus with other specified complication, unspecified whether termite inspector insulin use (H) documented in this encounter Care Teams Charge Histotechnologist Relationship Specialty Start Date End Date [facility], [facility] [address] [place] [address] PCP - General 08/07/13 [place] [address] [place] [address] Assigned PCP 12/10/19 08/28/22 [place] [address] [place] [address] Assigned PCP 11/07/22 11/27/22 documented as of this encounter
--- OUTSIDE RECORDS SUMMARY | 2024-07-26 08:35 | XMS_ITS | Clinical Summary ---
Author Organization [facility] Address [address] [place] [address] Care Team Providers Care Cd Mixer Helper Name Role Phone [facility] Primary Care Provide r Allergies [...] mellitus with other specified complication, unspecified whether petroleum terminal plant operator insulin use (H) Take 2 tablets [...] on file Legal Sex Female 3:14 AM ASSISTANT ASSOCIATE PROFESSOR Gender Identity Not on file Sexual Orientation Not on file Last Filed Vital Signs Vital Sign Reading Time Taken Comments Blood Pressure 120/72 11/03/2019 1:48 PM ASSISTANT ASSOCIATE PROFESSOR Pulse 116 11/03/2019 1:48 PM ASSISTANT ASSOCIATE PROFESSOR Temperature 37.7 ??C (99.9 ??F) 11/03/2019 1:48 PM CS T Respiratory Rate 26 11/03/2019 1:48 PM ASSISTANT ASSOCIATE PROFESSOR Oxygen Saturation 97% 11/03/2019 1:48 PM ASSISTANT ASSOCIATE PROFESSOR Inhaled Oxygen Concentration - - Weight 106.1 kg (234 lb) 11/03/2019 1:48 PM ASSISTANT ASSOCIATE PROFESSOR Height 172.7 cm (5' 8) 11/03/2019 1:48 PM ASSISTANT ASSOCIATE PROFESSOR Body Mass Index 35.58 11/03/2019 1:48 PM ASSISTANT ASSOCIATE PROFESSOR Plan of Treatment Not on file Insurance [facility] INDIVIDUAL FAMILY PLANS WITH [employer] Advance Directives For more information, please contact: [phone] * Full Code (Latest Code Status on File) Date Activated Date Inactivated Comments 08/08/2013 10:56 AM * Full Code Date Activated Date Inactivated Comments 08/07/2013 7:10 PM 08/08/2013 10:56 AM Care Teams Cd Mixer Helper Relationship Specialty Start Date End Date [facility] [place] [address] PCP - General 08/07/13
--- OUTSIDE RECORDS SUMMARY | 2024-07-26 08:35 | XMS_ITS | Clinical Summary ---
Author Organization [facility] Address [place], [place] [address] Care Team Providers Care Deployment Manager Name Role Phone Sona Fink PA-C Primary Care Provider [phone] Allergies Active Allergy Reactions Criticality Noted Date [...] mg by mouth once daily. 11/25/2023 Active [employer] G6 Photonics Engineering Technologist for continuous blood glucose monitor (CGM) As [...] Name Priority Date/Time Associated Diagnosis Comments HPV HIGH RISK Routine 08/16/2023 3:45 PM ACUTE CARE NURSE LIPID PANEL Routine 01/04/2007 10:33 AM CDT Hyperlipidemia XR MAMMO SCREENING BILATERAL (IA) Routine 10/16/2003 2:32 PM ACUTE CARE NURSE from Last 3 Months or Most Recently Relevant to Health Maintenance Results * HPV HIGH RISK (08/16/2023 3:45 PM ACUTE CARE NURSE) TYPE 16 Negative Negative 08/20/2023 11:20 AM ACUTE CARE NURSE [facility] TYPE 18 Negative Negative 08/20/2023 11:20 AM ACUTE CARE NURSE [facility] OTHER HIGH RISK TYPES Negative Negative 08/20/2023 11:20 AM ACUTE CARE NURSE [facility] Other (Cervical) 08/16/2023 3:45 PM ACUTE CARE NURSE 08/18/2023 12:06 PM ACUTE CARE NURSE Narrative [facility] - 08/20/2023 11:20 AM ACUTE CARE NURSE HPV types 16, 18, 31, 33, 35, 39, 45, 51, 52, 56, 58, 59, 66 and 68 DNA were undetectable or below the pre-set threshold. Methodology: Teagan Jason 4800 HPV Test Doctor Unknown MICROBIOLOGY [facility] [address] [place] [address], * LIPID PANEL (01/04/2007 10:33 AM CDT) CHOLESTEROL,TOTAL 144 110 - 199 mg/dL [facility] TRIGLYCERIDES 105 40 - 149 mg/dL [facility] HDL CHOLESTEROL 41 >40 mg/dL [facility] CHOL/HDL RATIO 3.51 <4.51 [facility] LDL CHOLESTEROL 82 <131 mg/dL [facility] PATIENT STATUS Fasting [facility] Blood specimen (specimen) BLOOD SPECIMEN / Unknown 01/04/2007 10:33 AM CDT 01/04/2007 10:31 AM CDT Janet Melgar MD CHEMISTRY [facility] INTERNAL ZIP [id number] [address] * XR MAMMO SCREENING BILATERAL (10/16/2003 2:32 PM ACUTE CARE NURSE) MAMMOGRAM Negative Anatomical Region Laterality Modality BREASTS, Breast Left, Breast Right Bilateral Mammography 10/16/2003 2:32 PM ACUTE CARE NURSE Narrative 02/22/2004 4:36 PM CDT Ordered by an unspecified provider. Other Clinical Staff MAMMO from Last 3 Months or Most Recently Relevant to Health Maintenance Advance Directives * Full Code (Latest Code Status on File) Date Activated Date Inactivated Comments 12/23/2023 9:54 AM 12/24/2023 2:31 AM Question Answer Comments Code Status Discussion: Unable to Assess Preferences, Provider to review later Care Teams Deployment Manager Relationship Specialty Start Date End Date Sona Fink PA-C [address] [place] [address] PCP - General Emergency Medicine 12/22/23
[2024-07-26 09:00] LABS: Creatinine* 0.6 mg/dL (0.5-1.5); Estimated Glomerular Filt Rate 100 ml/min
--- NOTE | 2024-07-26 09:00 | CT_ITS ---
Patient: TAMIKA HERNANDEZ Facility:?[facility] Patient ID:?[id number] Site Patient ID:?[id number]. Site :?[id number] Study:?CT-Abdomen/Pelvis WITH 101 CC ISOVUE 370 AND WATER P-07/26/2024 9:43:11 AM Ordering Physician:Stevenson Magallanes Final Report: INDICATION: Right lower quadrant and back pain. TECHNIQUE: CT abdomen and pelvis acquired with 101 cc Isovue 370 IV contrast. COMPARISON: None. FINDINGS: Lower chest: Minimal lower lobe atelectasis. Liver: Liver is normal in size and attenuation. No intrahepatic biliary duct dilatation. Small hypoattenuating lesion in the left hepatic lobe measuring 9 millimeter (2/45) and 10 millimeter (2/55) are indeterminate. Gallbladder and bile ducts: Status post cholecystectomy without biliary duct dilatation. Pancreas: Unremarkable. No mass or inflammation. Spleen: Unremarkable. Normal in size. No masses. Adrenal glands: No suspicious mass. Kidneys: Bilateral kidneys are normal in size and attenuation. No nephrolithiasis or hydronephrosis. No ureteric calculi. Urinary bladder is mildly distended. GI tract: No concerning focal bowel wall thickening or dilatation to suspect obstruction. Colonic diverticulosis without diverticulitis. No inflammatory changes into the right lower quadrant. Appendix is not separately identified Vasculature: Abdominal aorta is of normal caliber with mild atherosclerotic disease. Lymph nodes: No lymphadenopathy. Peritoneum/Abdominal Wall: No free intraperitoneal fluid or air. Fat containing umbilical hernia with a defect of 2 centimeter. Pelvis: Status post hysterectomy Bones: Moderate multilevel degenerative changes and levo scoliotic curvature of the lumbar spine with the apex at L3 level. No aggressive appearing bony lesion. IMPRESSION: Small hypodense left hepatic lesions, less than a centimeter are incompletely assessed, most compatible with a benign etiology such as cyst or hemangioma in the absence of known malignancy. Consider further evaluation ultrasound if clinically indicated. Colonic diverticulosis without diverticulitis. Please note that all CT scans at this facility use dose modulation, iterative reconstruction, and/or weight-based dosing when appropriate to reduce radiation dose to as low as reasonably achievable. Dictated by Pia Rick MD @ 07/27/2024 8:24:49 AM Signed by:?Pia Rick MD @07/27/2024 8:24:49 AM (Electronic Signature)
== END 2024-07-26 08:33 | disposition home or self-care (01) ==
LOC: CT 08:33
PROVIDERS: PCP Physician Assistant Medical; Visit Provider Physician Assistant Medical
DX: R10.31 Right lower quadrant pain (principal); K76.9 Liver disease, unspecified; K57.30 Diverticulosis of large intestine without perforation or abscess without bleeding
CPT/HCPCS: 36415; 74177; 82565; Q9967

== ENCOUNTER 2024-08-30 07:07 | Outpatient (CLI) | payer MEDICARE, SELFPAY ==
--- NOTE | 2024-08-30 07:15 | CRLHL7_ITS ---
For Patients: As a result of the Century Cures Act, medical imaging exams and procedure reports are released immediately into your electronic medical record. You may view this report before your referring provider. If you have questions, please contact your health care provider. INDICATION: Sub cm hepatic structures on CT COMPARISON: CT 07/26/2024 TECHNIQUE: Real time morales scale imaging and color Doppler analysis was performed of the right upper quadrant. FINDINGS: Liver echotexture is diffusely increased and coarsened. No intrahepatic mass. Atherosclerotic changes in the aorta. Normal IVC. There is no evidence of ascites. The gallbladder is absent. The common bile duct is of normal size and measures 6.6 mm in diameter at the level of the kathleen hepatis. The pancreas appears normal. There is no evidence of a stone or hydronephrosis within the right kidney. The right kidney measures 10.8 cm in length. IMPRESSION: Hepatic steatosis. No hepatic lesion by ultrasound. Dictated by Abdoul Torres MD @ 08/30/2024 12:25:43 PM (Electronically Signed)
== END 2024-08-30 07:08 | disposition home or self-care (01) ==
LOC: US 07:08
PROVIDERS: PCP Physician Assistant Medical; Visit Provider Physician Assistant Medical
DX: K76.9 Liver disease, unspecified (principal); K76.0 Fatty (change of) liver, not elsewhere classified
CPT/HCPCS: 76705

== ENCOUNTER 2024-09-21 12:44 | Outpatient (CLI) | payer MEDICARE, SELFPAY ==
--- NOTE | 2024-09-21 13:00 | CRLHL7_ITS ---
For Patients: As a result of the Century Cures Act, medical imaging exams and procedure reports are released immediately into your electronic medical record. You may view this report before your referring provider. If you have questions, please contact your health care provider. INDICATION: Endometrial cancer. Liver lesions. COMPARISON: Abdominal ultrasound dated [address] scan of the abdomen and pelvis dated 26 July 2024. Technique : Abdominal MRI with T1 in and out of phase, T2, diffusion weighted, and progressively delayed post-contrast images. Intravenous gadolinium administered. Findings : The 2 lesions in the left lobe of the liver seen on the previous CT scan represent small areas of mild focal fatty infiltration. No suspicious enhancing liver lesions identified. No focal abnormalities identified in the visualized portions of the spleen, pancreas, adrenal glands, and kidneys. No hydronephrosis. No adenopathy. Impression : 1. Two small areas of mild focal fatty infiltration in the left lobe of the liver. 2. No suspicious enhancing liver lesions identified. Dictated by Marcelo Sher MD @ 09/22/2024 8:23:08 AM (Electronically Signed)
== END 2024-09-21 12:45 | disposition home or self-care (01) ==
LOC: MRI 12:45
PROVIDERS: PCP Physician Assistant Medical; Visit Provider Physician Assistant Medical
DX: K76.9 Liver disease, unspecified (principal); K76.0 Fatty (change of) liver, not elsewhere classified
CPT/HCPCS: 74183; A9575

== ENCOUNTER 2024-09-25 10:02 | Outpatient (CLI) | payer MEDICARE, SELFPAY | END 2024-09-25 10:03 | disposition home or self-care (01) | LOC: LKVREF 10:05 | PROVIDERS: PCP Physician Assistant Medical; Visit Provider Physician Assistant Medical | DX: I10 Essential (primary) hypertension (principal); R06.02 Shortness of breath | CPT/HCPCS: 83880 ==

== ENCOUNTER 2024-09-29 13:37 | Outpatient (CLI) | payer MEDICARE, SELFPAY ==
--- NOTE | 2024-09-29 13:45 | CRLHL7_ITS ---
For Patients: As a result of the Century Cures Act, medical imaging exams and procedure reports are released immediately into your electronic medical record. You may view this report before your referring provider. If you have questions, please contact your health care provider. Indication: Headaches. Technique: Noncontrast sagittal T1, axial FLAIR, T2, diffusion weighted sequences are provided. No comparisons. Findings: The ventricles, sulci and gyri are normal size, shape and contour for age. The midline structures are centrally located with no evidence of shift. There are no suspicious intra or extra-axial fluid collections. No region of restricted diffusion. Expected flow voids in the cavernous carotids and basilar artery. Miniscule scattered foci of increased T2 signal within the supratentorial white matter that are non-specific. Complete opacification left frontal sinus and anterior ethmoid air cells. Mild mucosal thickening of the right frontal sinus and maxillary sinuses. There appears to be bilateral maxillary antrostomies. Mild opacification of the mastoid air cells bilaterally likely representing benign inflammatory fluid. Impression: 1. No radiographic evidence of acute intracranial abnormalities. 2. Miniscule scattered supratentorial white matter change that is non-specific. Differential considerations include changes related to diabetes, hypertension, collagen vascular disease or migranous headaches. 3. Severe left frontal and ethmoid sinusitis. Dictated by Cristi Green MD @ 09/29/2024 5:16:31 PM (Electronically Signed)
== END 2024-09-29 13:38 | disposition home or self-care (01) ==
LOC: MRI 13:38
PROVIDERS: PCP Physician Assistant Medical; Visit Provider Physician Assistant Medical
DX: R51.9 Headache, unspecified (principal); J32.2 Chronic ethmoidal sinusitis; J32.1 Chronic frontal sinusitis; I10 Essential (primary) hypertension
CPT/HCPCS: 70551

== ENCOUNTER 2024-11-15 10:38 | Outpatient (CLI) | payer MEDICARE, SELFPAY | END 2024-11-15 10:39 | disposition home or self-care (01) | PROVIDERS: PCP Physician Assistant Medical; Visit Provider Physician Assistant Medical | DX: E11.9 Type 2 diabetes mellitus without complications (principal) | CPT/HCPCS: 80061 ==

== ENCOUNTER 2025-05-09 12:00 | Emergency (ER) | payer MEDICARE, SELFPAY ==
[2025-05-09] VITALS (31 sets, daily range): BP systolic 102–142; BP diastolic 62–109; PULSE 77–123; RESP 8–51; TEMP 36.2; O2SAT 95–100; BMI 31.2
--- OUTSIDE RECORDS SUMMARY | 2025-05-09 12:04 | XMS_ITS | CCD ---
Author Name Interface, [id number] lity Address [address] [place] [id number] [facility] Address [address] [place] [address] Care Team Providers Care Oil Analyst Name Role Phone Jalen RODRIGUEZ, Caitlyn Cervantes Unavailable Un available Allergies and Adverse Reactions Care Plan Reason for Visit Encounters Immunizations Medications Problems Procedures Social History Vital Signs Notes Section
--- OUTSIDE RECORDS SUMMARY | 2025-05-09 12:04 | XMS_ITS ---
Author Name Interface, [id number] lity Address [address] [place] [id number] [facility] Address [address] [place] [address] Allergies and Adverse Reactions Plan Reason for Visit Encounters Immunizations Medications Problems Vital Signs Notes Section
--- OUTSIDE RECORDS SUMMARY | 2025-05-09 12:04 | XMS_ITS | CCD ---
Author Name Interface, [id number] lity Address [address] [place] [id number] [facility] Address [address] [place] [address] Care Team Providers Care Formulator Name Role Phone Jalen RODRIGUEZ, Caitlyn Cervantes Unavailable Un available Allergies and Adverse Reactions Care Plan Reason for Visit Encounters Immunizations Medications Problems Procedures Social History Vital Signs Notes Section
--- OUTSIDE RECORDS SUMMARY | 2025-05-09 12:04 | XMS_ITS ---
Author Name Interface, [id number] lity Address [address] [place] [id number] [facility] Address [address] [place] [address] Allergies and Adverse Reactions Plan Reason for Visit Encounters Immunizations Medications Problems Vital Signs Notes Section
--- OUTSIDE RECORDS SUMMARY | 2025-05-09 12:05 | XMS_ITS | Clinical Summary ---
Author Organization [facility] Address [address] [place] [address] Care Team Providers Care Burlap Roll Coverer Name Role Phone Sona Fink PA-C Primary Care Provider [phone] Allergies Active Allergy Reactions Criticality Noted Date Comments Amoxicillin Rash 12/22/2023 Aspirin Bronchospasm,Wheezing High 03/04/2006 asmatic Codeine Hives 11/02/2005 Epinephrine Tremors 12/22/2023 Ibuprofen Anaphylaxis High 10/28/2012 Liraglutide Diarrhea 12/22/2023 Penicillins Hives,Itching,Edema 10/29/2006 Prednisone Tachycardia Medium 07/22/2020 Hydrocodone-Acetaminophen Nausea Only 6 Medications CYCLOBENZAPRINE 10 MG TAB Take 5 mg by mouth at bedtime if needed. 0 01/28/20 07 Active BLOOD GLUCOSE TEST STRIPS use as directed 3 months 1 01/28/20 07 Active FLONASE 50 MCG/ACTUATION NASAL SPRAY AEROSOLIndicatio ns:Chronic rhinitis inhale 1 spray in each nostril by nasal route once daily 1 3 06/21/20 07 Active Additional Information Patient taking differently: 2 SprayNasalDFENG, Informant: Other Medical Records, Reported on 12/22/2023 ALBUTEROL SULFATE 2.5 MG/3 ML NEB SOLUTIONIndicati ons:Wheezing inhale 3 milliliters (2.5 mg) by nebulization 1 0 09/07/20 07 Active ALBUTEROL 90 MCG/ACTUATION AEROSOL INHALER inhale 2 puffs by inhalation route every 4-6 hours as needed 3 5 09/21/19 08 Active ADVAIR DISKUS 250 MCG-50 MCG/DOSE FOR INHALATION inhale 1 puff by inhalation route 2 times per day morning and evening approximately 12 hours apart 1 2 11/14/19 08 Active metFORMIN (GLUCOPHAGE) 500 mg tablet Take 2,000 mg by mouth once daily. 10/31/19 Active glipiZIDE extended-release (GLUCOTROL XL) 10 mg Extended-Release tablet Take 10 mg by mouth once daily. 10/31/19 Active rosuvastatin (CRESTOR) 10 mg tablet Take 10 mg by mouth at bedtime. 05/13/20 Active lisinopriL (PRINIVIL; ZESTRIL) 10 mg tablet Take 20 mg by mouth once daily. 07/11/20 Active famotidine (PEPCID) 20 mg tablet Take 20 mg by mouth once daily. Take 20 mg by mouth once daily. 11/29/19 22 Active metoprolol succinate (TOPROL XL) 25 mg Sustained-Releas e tabletIndication s:Palpitations,H eart palpitations Take 1 Tablet (25 mg) by mouth once daily. 90 Tablet 3 02/05/20 23 Active amLODIPine (NORVASC) 5 mg tablet Take 5 mg by mouth once daily. 11/25/19 24 Active Dexcom G6 Pilot Captain for continuous blood glucose monitor (CGM) As directed for coninuous glucose monitoring* 09/30/19 24 Active Jardiance 10 mg tablet Take 10 mg by mouth once daily. 12/07/19 24 Active albuterol-ipratr opium (DUONEB) (2.5-0.5 mg) in 3 mL NEBULIZATION solution Inhale 1 Neb via a nebulizer every 4 hours if needed. Active pantoprazole (PROTONIX) 20 mg tablet Take 20 mg by mouth once daily before a meal. 11/26/19 24 Active oxyCODONE (ROXICODONE) 5 mg immediate release tabletIndication s:Post-op pain Take 1 Tablet (5 mg) by mouth every 4 hours if needed for Pain. 8 Tablet 12/23/2023 4:28 PM CDT 12/23/19 24 Active Active Problems Problem Noted Date Diagnosed [...] Presbyopia 03/14/2007 10/28/2012 Myopia 03/14/2007 10/28/2012 Immunizations Immunization Administration Dates Next Due Influenza, IIV3 (Age >=3 years) 07/23/2006,07/04,07/10/2003,08/09/2000 Family History Medical History Relation Name Comments Heart Disease Father Other Mother torsten garcia ntmartha Genetic Other heart disease~stroke~hypertension~arthritis~headaches~lazy eye - son/heart [...] drink = 0.6 oz pur e alcohol) Financial Resource Strain Answer Date R ecorded Difficulty of Paying Living Expenses Not on file 09/13/2021 Difficulty of Paying Living Expenses Not on file 09/13/2021 Comments No Sex and Gender Information Value Date Recorded Sex Assigned at Not on file Legal Sex 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 Gender Identity Not on file Sexual Orientation [...] 45 12/23/2023 6:45 PM CDT Temperature 36 C (96.8 F) 12/23/2023 4:45 PM CDT Respiratory Rate 20 12/23/2023 6:45 PM CDT Oxygen Saturation 97% 12/23/2023 6:45 PM CDT Inhaled Oxygen Concentration - - Weight 91.6 kg (202 lb) 12/23/2023 10:12 AM CDT Height 170.2 cm (5' 7) 12/23/2023 10:12 AM CDT Body Mass Index 31.64 12/23/2023 10:12 AM CDT Plan of Treatment Health Maintenance Due Date Last Done Comments Tetanus booster 1969 Depression screening for age 12+ 1970 Hepatitis C screening for age 18-79 1976 Pneumococcal series for age 50+ (1 of 2 - PCV) 1977 Colonoscopy through age 75 2003 Mammogram for age 45-75 10/16/2004 10/16/2003, 08/21 Zoster (shingles) series for age 50+ (1 of 2) 2008 Lipids for age 45-75 01/05/2012 01/04/2007, 07/23/2006, 03/04/2006, Additional history exists RSV vaccine for adults or (1 - Risk 60-74 years 1-dose series) 2018 BMI (ht and wt on same day) for age 18+ 01/16/2023 01/16/2022, 07/22/2020 DEXA/DXA scan for age 65+ 2023 COVID-19 vaccine series ( season) 2024 05/12/2022, 06/27/2021, 06/06/2021 Influenza Vaccine (#1) 2025 6, 07/04/2004, 07/10/2003, Additional history exists Hepatitis B series for 19+ Aged Out N o longer eligible based on patient's age to complete this topic Procedures Procedure Name Priority Date/Time Associated Diagnosis Comments LIPID PANEL Routine 01/04/2007 10:33 AM CDT Hyperlipidemia XR MAMMO SCREENING BILATERAL (IA) Routine 10/16/2003 2:32 PM LOG LOADER HELPER from Last 3 Months or Most Recently Relevant to Health Maintenance Results * LIPID PANEL (01/04/2007 10:33 AM CDT) CHOLESTEROL,TOTAL 144 110 - 199 mg/dL [facility] TRIGLYCERIDES 105 40 - 149 mg/dL [facility] HDL CHOLESTEROL 41 >40 mg/dL [facility] CHOL/HDL RATIO 3.[address] [facility] LDL CHOLESTEROL 82 <131 mg/dL [facility] PATIENT STATUS Fasting [facility] Blood specimen (specimen) BLOOD SPECIMEN / Unknown 01/04/2007 10:33 AM CDT 01/04/2007 10:31 AM CDT Janet Melgar MD CHEMISTRY Gali l Result [facility] INTERNAL ZIP [id number] [place] [address] * XR MAMMO SCREENING BILATERAL (10/16/2003 2:32 PM LOG LOADER HELPER) MAMMOGRAM Negative Anatomical Region Laterality Modality BREASTS, Breast Left, Breast Right Bilateral Mammography 10/16/2003 2:32 PM LOG LOADER HELPER Narrative 02/22/2004 4:36 PM CDT Ordered by an unspecified provider. Other Clinical Staff MAMMO Final Resul t from Last 3 Months or Most Recently Relevant to Health Maintenance Insurance [facility] [employer] MEDICARE ADVANTAGE MR Advance Directives * Full Code (Latest Code Status on File) Date Activated Date Inactivated Comments 12/23/2023 9:54 AM 12/24/2023 2:31 AM Question Answer Comments Code Status Discussion: Unable to Assess Preferences, Provider to review later Care Teams Burlap Roll Coverer Relationship Specialty Start Date End Date Sona Fink PA-C [address], [place] [address] PCP - General Emergency Medicine 12/22/23
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
[2025-05-09 12:44] LABS: Troponin, Point-of-Care* 0.00 ng/ml (0.01-0.04)
[2025-05-09 12:47] LABS: Hematocrit* 42.3 % (33.0-51.0); Hemoglobin* 14.1 gm/dL (12.0-16.0); Immature Granulocytes Abs Auto 0.01 K/uL (0.00-0.30); Immature Granulocytes Pct Auto 0.1 %; Lymphocytes Absolute Auto 1.95 K/uL (0.90-2.90); Mean Corpuscular HGB Conc 33 gm/dL (32-36); Mean Corpuscular Hemoglobin 29 pg (26-34); Mean Corpuscular Volume 88 fL (80-100); RDW Coefficient of Variation % 12.8 % (11.5-15.5); Red Blood Count* 4.79 m/uL (4.00-5.20); White Blood Count* 8.86 K/uL (4.50-11.00)
--- OUTSIDE RECORDS SUMMARY | 2025-05-09 12:49 | XMS_ITS ---
Author Name Interface, [id number] lity Address [address] [place] [id number] [facility] Address [address] [place] [address] Allergies and Adverse Reactions Plan Reason for Visit Encounters Immunizations Medications Problems Vital Signs Notes Section
--- OUTSIDE RECORDS SUMMARY | 2025-05-09 12:49 | XMS_ITS | CCD ---
Author Name Interface, [id number] lity Address [address] [facility] [address] [address] Organization [facility] Address [address] [facility] [address] [address] Care Team Providers Care Scoop Machine Operator Name Role Phone Jalen RODRIGUEZ, Caitlyn Cervantes Unavailable Un available Allergies and Adverse Reactions Medication/Group Name Reaction Severity Date ibuprofen 01/11/2025 codeine 01/11/2025 prednisone 01/11/2025 Penicillins 01/11/2025 amoxicillin 01/11/2025 aspirin 01/11/2025 epinephrine 01/11/2025 hydrocodone 01/11/2025 Care Plan Date Type Value 01/11/2025 APPOINTMENT OV 30 MIN 07/26/2024 APPOINTMENT OFFICE FU 30 MIN NO TREATMENT 07/14/2024 APPOINTMENT OFFICE FU 30 MIN NO TREATMENT Reason for Visit OV 30 MIN Encounters Date Name 01/11/2025 Uterine cancer Immunizations Date Name Route Dose Instructions Refusal Reason Stat us Flu vaccine - Adult Patient declined/rejected Not Administered Medications Date Name Route Dose Frequency Instructions Start Date End Date Status Cholecalciferol Oral active Glucosamine Oral active Hydrochlorothiazide Oral orally 12.5 mg daily active Lisinopril Oral orally 20.0 mg daily active Cyclobenzaprine Oral orally 5.0 mg prn active Metformin Oral orally 2000.0 mg daily active Ferrous Sulfate Oral active Glipizide Oral st opped Metoprolol Oral 24 h r Tab (Succinate) orally 50.0 mg daily active Vitamin B Complex Oral Capsule active Rosuvastatin Calcium Oral orally 10.0 mg daily active Magnesium Oxide Oral active Liraglutide Subcutaneous Pen Injector (Victoza/diabetes) i nactive Amlodipine Oral orally 5.0 mg daily a ctive Albuterol-Ipratropiu m Nebulized 3 mg (2.5 mg base)-0.5 mg/3 mL active Fluticasone Inhaler 50 mcg/actuation sto pped Clindamycin Oral as direc dillon for a week inactive Docosahexanoic Acid-Eicosapentanoic Acid Oral 120 mg-180 mg active Fluticasone-Salmeter o l Inhaler 250 mcg-50 mcg/Dose active Multivitamins Oral Tablet active Pantoprazole (Sodium ) Oral Delayed Release orally 40.0 mg daily active Albuterol-Ipratropiu m Inhaler 100 mcg-20 mcg/actuation stoppe d Albuterol HFA Inhale r 90 mcg/actuation act sylvie Fluticasone Nasal [place] 50 mcg/actuation active Problems Diagnosis Status Date of Diagnosis Resolution Date Postmenopausal bleeding (finding) Active Diarrhea (finding) Active Chronic constipation Active Constipation (finding) Active Counseling Active Uterine cancer Active History of endometrial cancer Active Procedures Date Category Name Instructions Status 07/14/2024 Physician Order RTC MD/MEND WORKER Ordered 07/14/2024 Physician Order Pelvic examinati on (List separately in addition to code for primary procedure) Administered 01/11/2025 Physician Order RTC MEND WORKER/PA Ordered 07/14/2025 Physician Order RTC MEND WORKER/PA Ordered Social History Date Name Value 01/11/2025 Smoking Status Never smoker 01/11/2025 Sex Female Vital Signs Date Type Value 07/14/2024 Body Temperature 97.90 07/14/2024 Intravascular Systolic 116 07/14/2024 Intravascular Diastolic 60 07/14/2024 BSA 2.05 07/14/2024 BMI 32.39 07/14/2024 Height 67.00 07/14/2024 Weight 206.80 07/14/2024 Pain Scale 0.00 07/14/2024 Oxygen Saturation 98.00 07/14/2024 Respiratory Rate 16.00 07/14/2024 Heart Beat 75.00 01/11/2025 Weight 219.00 01/11/2025 Intravascular Systolic 120 01/11/2025 Intravascular Diastolic 82 01/11/2025 Oxygen Saturation 97.00 01/11/2025 Respiratory Rate 16.00 01/11/2025 Pain Scale 0.00 01/11/2025 Body Temperature 97.79 01/11/2025 BSA 2.10 01/11/2025 BMI 34.30 01/11/2025 Height 67.00 01/11/2025 Heart Beat 70.00 Notes Section * ESTHETICIAN SPA Follow-Up GYNECOLOGIC ONCOLOGY FOLLOW-UP VISIT Patient Name: TAMIKA HERNANDEZ : 1960 Date of Visit: 01/11/2025 Referring Provider: Mansi Ramsey MD (Obstetrics/Gynecology) Attending: Caitlyn Rao (Gynecological/Oncology) Chief Complaint ([employer] [facility]): Surveillance? History of Present Illness ([employer] [facility]): Tamika Hernandez is a?64-year-old female with a history of stage IA grade 2 endometrial cancer. Had postmenopausal bleeding starting June 2023. Underwent difficult Hysteroscopy D&C complicated by suspected uterine perforation. Insufficient?sampling due to severe cervical stenosis. No recent vaginal bleeding, notes abnormal vaginal discharge light brown has increased. Otherwise, no abdominal/pelvic pain, change in BMs, early satiety, bloating, cough, shortness of breath.? 12/23/23:?Examination under anesthesia Robot-assisted total laparoscopic hysterectomy, bilateral salpingo-oophorectomy, bilateral pelvic sentinel lymph node dissection, cystoscopy, pelvic washings?(Dr. Rao).?Stage IA FIGO grade 2 endometrial cancer? 07/26/24: CT AP w/ for RLQ and back pain.?IMPRESSION: Small hypodense left hepatic lesions, lessthan a centimeter are incompletely assessed, most compatible with a benign etiology such as cyst orhemangioma in the absence of known malignancy. Consider further evaluation ultrasound if clinicallyindicated. Colonic diverticulosis without diverticulitis. 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 Interval History ([employer] [facility]) Tamika is here today for a surveillance exam.? She is feeling well and is without concerns.? Washaving post op RLQ discomfort up until about a month ago-now totally resolved.? No change in bladder or bowel function.? No vaginal bleeding or unexpected weight loss.? Review of Systems: A complete 14-point review of systems is negative except as noted?in the above history of present illness. Past Medical History: Cervical stenosis Obstructive sleep apnea Type 2 DM (med adjustments since 09/2023 elevated Hgb A1C, has had intentional weight loss - most recently Hgb A1C 7.5 end of October per patient report)? Asthma (well controlled)? Hypertension Hyperlipidemia? 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 Allergies: * Penicillins * amoxicillin * aspirin * codeine * epinephrine * hydrocodone * ibuprofen * prednisone Medications: * Metoprolol Oral 24 hr Tab (Succinate) 50 mg orally daily * Lisinopril Oral 20 mg orally daily * Vitamin D3 (Cholecalciferol Oral) * Cyclobenzaprine Oral 5 mg orally prn * Ferrous Sulfate Oral * Albuterol HFA Inhaler 90 mcg/actuation * Fluticasone Nasal [place] 50 mcg/actuation * Advair Diskus (Fluticasone-Salmeterol Inhaler 250 mcg-50 mcg/Dose) * Albuterol-Ipratropium Nebulized 3 mg (2.5 mg base)-0.5 mg/3 mL * Glucosamine Oral * Magnesium Oxide Oral * Amlodipine Oral 5 mg orally daily * Hydrochlorothiazide Oral 12.5 mg orally daily * Metformin Oral 2000 mg orally daily * Pantoprazole (Sodium) Oral Delayed Release 40 mg orally daily * Fish Oil (Docosahexanoic Acid-Eicosapentanoic Acid Oral 120 mg-180 mg) * Multivitamins Oral Tablet * Rosuvastatin Calcium Oral 10 mg orally daily * Vitamin B Complex Oral Capsule Family History: No1st degree relative family history of breast, ovarian, uterine, colon cancer Social History: Lives with her . 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 ?No tobacco?use, illicit drug use, alcoholuse. Health Maintenance: Colonoscopy:?2022 Mammogram:?2021 DEXA scan: 2022? Vital Signs: Blood pressure: 120/82, Regular, Pulse: 70, Temperature: 97.79 F, Respirations: 16, O2 sat: 97%, AtRest, Room Air, Pain Scale: 0, Height: 67 in, Weight: 219 lb, BSA: 2.1, BMI: 34.3 kg/m2 Physical Exam ([employer] [facility]): General: appears well and in no apparent distress Respiratory: ?normal respiratory effort Heart: peripheral perfusion normal, normal heart rate? Abdomen: soft, nondistended, nontender to palpation and without masses. no rebound or guarding. lapincisions completely healed.? Lower extremities: no edema in bilateral lower extremities Neuro: alert and oriented, normal speech? Psych: appropriate mood and affect? LNs: no inguinal adenopathy? Pelvic: ?No external lesions. ?Normal vagina with healthy appearing mucosa and no lesions. Vaginal cuff intact without tenderness. Uterus, cervix and adnexa surgically absent. ?Rectal exam deferred. ?Bimanual exam unremarkable without nodularity, masses, or pelvic fullness. Laboratory Data: none new ? Imaging: as above. MRI Pelvis 10/21/23 Technique: Multisequence multiplanar MRI of the pelvis both with and without IV contrast (15 mL Dotarem). Comparison: Pelvic ultrasound dated 08/17/2023. Findings: Visualized bowel: Visualized bowel is nondilated. Scattered colonic diverticulosis, without evidence of acute diverticulitis. Bladder: Unremarkable for degree of distension. Reproductive organs: Uterus is neutrally positioned. There isan ill-defined mass within the endometrial cavity measuring approximately 2.0 x 1.1 x 1.8 cm, with enhancement on postcontrast images. There is ill-defined interface between this mass and the normal endometrial lining, and is highly worrisome for neoplasm. Differentials of endometrial polyp and endometrial hyperplasia are felt to be less likely. This mass also causes irregular thickening of the endometrium with small amount of endometrial fluid, abnormal for a patient of postmenopausal age. Unremarkable appearance of the bilateral ovaries Pelvic lymph nodes: No lymphadenopathy. Bones: No suspicious/aggressive enhancing focal osseous lesion identified. Impression: Ill-defined mass within the endometrial cavity measuring approximately 2.0 x 1.1 x 1.8 cm, with enhancement on postcontrast images. Due to the ill-defined borders and poorly defined interface between the mass and normal endometrial lining, finding is highly worrisome for endometrial neoplasm. Differentials of endometrial polyp, endometrial hyperplasia, or submucosal fibroid are felt to be less likely. The mass also causes irregular thickening of the endometrium with small amount of endometrial fluid, abnormal for a patient of postmenopausal age. Ultrasound 08/17/23 CLINICAL HISTORY: Postmenopausal bleeding TECHNIQUE: 2D morales scale and color Doppler images were acquired of the pelvis using a transvaginal approach. FINDINGS: The uterus measures 7.7 x 4.9 x 5.6 cm. Partially exophytic heterogeneous fibroid arises from the left side of the mid uterus measuring 2.9 x 2.3 x 2.6 cm. The endometrium measures 3 millimeters. Lobular masses present within the endometrial canal measuring 2.1 x 1.0 x 2.0 cm. A small amount of fluid is present within the endometrial canal. Uterine echotexture is heterogeneous. The leftovary is not visualized and the right ovary measures 2.6 x 1.1 x 1.5 cm. The right ovary demonstrates normal arterial and venous blood flow on color Doppler analysis. Them are no suspicious fluid collections within the cul-de-sac. IMPRESSION: Lobular hyperecholc endometrial mass measuring 2.1 x 1.0 x 2.0 cm, polyp versus other. A small amount of endometrial fluid is also present. Partially exophytic left mid uterine fibroid measuring 2.9 x 2.3 x 2.6 cm Problems: * Uterine cancer ( Stage Date: Unknown, Stage FIGO IA Histopathologic Type: Endometrioid carcinoma; Histologic Grade: G2; ) * Chronic constipation * Constipation (finding) * Counseling * Diarrhea (finding) * History of endometrial cancer * Postmenopausal bleeding (finding) Assessment & Plan ([employer] [facility]): Tamika Hernandez is a?64-year-old female referred to?[facility] with a history of Stage IA FIGO grade 2 endometrial cancer s/p robot-assisted total laparoscopic hysterectomy Bilateral salpingo- oophorectomy, bilateral pelvic sentinel lymph node dissection, cystoscopy, pelvicwashings?(12/23/23)? Endometrial cancer* Stage IA FIGO grade 2;?no further treatment recommended. * recommends surveillance: q6 month x 2 years (12/2025) then annual visits. * Signs/symptoms?of recurrence reviewed? * GEOVANNY on exam.? Return to clinic in 6 months for surveillance? Pain Care Management: Pain Scale: 0 Patient Care needs: Depressions Status: Was not screened Reason: Patient Refused; Screening Date: 01/11/2025 Psycho-Social PHQ-9 Follow-up Plan (if applicable): Smoking Status: Smoking Tobacco : Never smoker; Smokeless Tobacco : Never used smokeless tobacco; Vaping : Never vaped Brandi Garcia CNP Copy to: Mansi Ramsey MD (Referring) FAX Sona Fink PA-C Electronically signed by Brandi Garcia CNP 01/11/2025 13:12 CDT * ESTHETICIAN SPA Follow-Up GYNECOLOGIC ONCOLOGY FOLLOW-UP VISIT Patient Name: TAMIKA HERNANDEZ : 1960 Date of Visit: 07/14/2024 Referring Provider: Mansi Ramsey MD (Obstetrics/Gynecology) Attending: Caitlyn Rao (Gynecological/Oncology) Chief Complaint ([employer] [facility]): Surveillance? History of Present Illness ([employer] [facility]): Tamika Hernandez is a?63-year-old female [facility]with postmenopausal bleeding?and inability?to?sample the endometrium due to cervical stenosis.? Had postmenopausal bleeding starting June 2023. Underwent difficult Hysteroscopy D&C complicated by suspected uterine perforation. Insufficient?sampling due to severe cervical stenosis. No recent vaginal bleeding, notes abnormal vaginal discharge light brown has increased. Otherwise, no abdominal/pelvic pain, change in BMs, early satiety, bloating, cough, shortness of breath.? 12/23/23:?Examination under anesthesia Robot-assisted total laparoscopic hysterectomy, bilateral salpingo-oophorectomy, bilateral pelvic sentinel lymph node dissection, cystoscopy, pelvic washings?(Dr. Rao).?Stage IA FIGO grade 2 endometrial cancer? 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 Interval History ([employer] [facility]) She denies fever/chills, shortness of breath, cough, chest pain, early satiety, change in appetite,nausea/emesis, reflux symptoms, abdominal/pelvic pain, unintentional weight loss, vaginal bleeding,abnormal vaginal discharge, hematochezia, hematuria, urinary symptoms (difficulty emptying bladder, hematuria, urinary frequency/urgency). Has noticed increased constipation occasionally since procedure, associated with lower back pain that's relieved with BM. PCP has ordered CT scan for evaluation- she'll forward/call us with results.? Review of Systems: A complete 14-point review of systems is negative except as noted?in the above history of present illness. Past Medical History: Cervical stenosis Obstructive sleep apnea Type 2 DM (med adjustments since 09/2023 elevated Hgb A1C, has had intentional weight loss - most recently Hgb A1C 7.5 end of October per patient report)? Asthma (well controlled)? Hypertension Hyperlipidemia? 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 Allergies: * Penicillins * amoxicillin * aspirin * codeine * epinephrine * hydrocodone * ibuprofen * prednisone Medications: * Albuterol-Ipratropium Nebulized 3 mg (2.5 mg base)-0.5 mg/3 mL * Amlodipine Oral 5 mg orally daily * Pantoprazole (Sodium) Oral Delayed Release * Rosuvastatin Calcium Oral 10 mg orally daily * Advair Diskus (Fluticasone-Salmeterol Inhaler 250 mcg-50 mcg/Dose) * Albuterol HFA Inhaler 90 mcg/actuation * Multivitamins Oral Tablet * Clindamycin Oral as directed for a week * Lisinopril Oral 20 mg orally daily * Magnesium Oxide Oral * Cyclobenzaprine Oral 5 mg orally prn * Ferrous Sulfate Oral * Fluticasone Nasal [place] 50 mcg/actuation * Glucosamine Oral * Fish Oil (Docosahexanoic Acid-Eicosapentanoic Acid Oral 120 mg-180 mg) * Metformin Oral 2000 mg orally daily * Metoprolol Oral 24 hr Tab (Succinate) 25 mg orally daily * Vitamin B Complex Oral Capsule * Vitamin D3 (Cholecalciferol Oral) Family History: No1st degree relative family history of breast, ovarian, uterine, colon cancer Social History: Lives with her . 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 ?No tobacco?use, illicit drug use, alcoholuse. Health Maintenance: Colonoscopy:?2022 Mammogram:?2021 DEXA scan: 2022? Vital Signs: Blood pressure: 116/60, Pulse: 75, Temperature: 97.9 F, Respirations: 16, O2 sat: 98%, Pain Scale: 0, Height: 67 in, Weight: 206.8 lb, BSA: 2.05, BMI: 32.39 kg/m2 Physical Exam ([employer] [facility]): General: appears well and in no apparent distress Respiratory: ?normal respiratory effort Heart: peripheral perfusion normal, normal heart rate? Abdomen: soft, nondistended, nontender to palpation and without masses. no rebound or guarding. lapincisions completely healed.? Lower extremities: no edema in bilateral lower extremities, non-tender to palpation? Neuro: alert and oriented x3, normal speech? Psych: appropriate mood and affect? LNs: no cervical or supraclavicular lymphadenopathy? Pelvic: ?No external lesions. ?Normal vagina with healthy appearing mucosa and no lesions. Vaginal cuff intact without tenderness. Uterus, cervix and adnexa surgically absent. ?Rectal exam deferred. ?Bimanual exam unremarkable without nodularity, masses, or pelvic fullness. Laboratory Data: None ? Imaging: MRI Pelvis 10/21/23 Technique: Multisequence multiplanar MRI of the pelvis both with and without IV contrast (15 mL Dotarem). Comparison: Pelvic ultrasound dated 08/17/2023. Findings: Visualized bowel: Visualized bowel is nondilated. Scattered colonic diverticulosis, without evidence of acute diverticulitis. Bladder: Unremarkable for degree of distension. Reproductive organs: Uterus is neutrally positioned. There isan ill-defined mass within the endometrial cavity measuring approximately 2.0 x 1.1 x 1.8 cm, with enhancement on postcontrast images. There is ill-defined interface between this mass and the normal endometrial lining, and is highly worrisome for neoplasm. Differentials of endometrial polyp and endometrial hyperplasia are felt to be less likely. This mass also causes irregular thickening of the endometrium with small amount of endometrial fluid, abnormal for a patient of postmenopausal age. Unremarkable appearance of the bilateral ovaries Pelvic lymph nodes: No lymphadenopathy. Bones: No suspicious/aggressive enhancing focal osseous lesion identified. Impression: Ill-defined mass within the endometrial cavity measuring approximately 2.0 x 1.1 x 1.8 cm, with enhancement on postcontrast images. Due to the ill-defined borders and poorly defined interface between the mass and normal endometrial lining, finding is highly worrisome for endometrial neoplasm. Differentials of endometrial polyp, endometrial hyperplasia, or submucosal fibroid are felt to be less likely. The mass also causes irregular thickening of the endometrium with small amount of endometrial fluid, abnormal for a patient of postmenopausal age. Ultrasound 08/17/23 CLINICAL HISTORY: Postmenopausal bleeding TECHNIQUE: 2D morales scale and color Doppler images were acquired of the pelvis using a transvaginal approach. FINDINGS: The uterus measures 7.7 x 4.9 x 5.6 cm. Partially exophytic heterogeneous fibroid arises from the left side of the mid uterus measuring 2.9 x 2.3 x 2.6 cm. The endometrium measures 3 millimeters. Lobular masses present within the endometrial canal measuring 2.1 x 1.0 x 2.0 cm. A small amount of fluid is present within the endometrial canal. Uterine echotexture is heterogeneous. The leftovary is not visualized and the right ovary measures 2.6 x 1.1 x 1.5 cm. The right ovary demonstrates normal arterial and venous blood flow on color Doppler analysis. Them are no suspicious fluid collections within the cul-de-sac. IMPRESSION: Lobular hyperecholc endometrial mass measuring 2.1 x 1.0 x 2.0 cm, polyp versus other. A small amount of endometrial fluid is also present. Partially exophytic left mid uterine fibroid measuring 2.9 x 2.3 x 2.6 cm Problems: * Uterine cancer ( Stage Date: Unknown, Stage FIGO IA Histopathologic Type: Endometrioid carcinoma; Histologic Grade: G2; ) * Chronic constipation * Constipation (finding) * Counseling * Diarrhea (finding) * Postmenopausal bleeding (finding) Assessment & Plan ([employer] [facility]): Tamika Hernandez is a?63-year-old [facility] with a newdiagnosis of Stage IA FIGO grade 2 endometrial cancer s/p robot-assisted total laparoscopic hysterectomy Bilateral salpingo- oophorectomy, bilateral pelvic sentinel lymph node dissection, cystoscopy, p elvic washings?(12/23/23)? Endometrial cancer* Stage IA FIGO grade 2;?no further treatment recommended. * recommends surveillance: q6 month x 2 years then annual visits. * Signs/symptoms?of recurrence reviewed today Return to clinic in 6 months for surveillance? I spent 15 minutes reviewing the patient's chart (outside clinic and hospital documentation, labs and imaging) before seeing the patient today. I spent 15 minutes face to face with the patient, whichwas spent interviewing, counseling and examining the patient.? Caitlyn Rao MD ? Gynecologic Oncology - [facility]? Pain Care Management: Pain Scale: 0 Patient Care needs: Depressions Status: Was screened; Outcome positive: No; Screening Date: 01/06/2024; Screening Tool:PRIME RODRIGUEZ-PHQ2; Total depression score: 0 Psycho-Social PHQ-9 Follow-up Plan (if applicable): Smoking Status: Smoking Tobacco : Never smoker; Smokeless Tobacco : Never used smokeless tobacco; Vaping : Never vaped Caitlyn Rao MD Copy to: Mnasi Ramsey MD (Referring) Sona Fink PA-C Electronically signed by Caitlyn Rao MD 07/14/2024 15:34 CDT
--- OUTSIDE RECORDS SUMMARY | 2025-05-09 12:49 | XMS_ITS ---
Author Name Interface, [id number] lity Address [address] [place] [id number] [facility] Address [address] [place] [address] Allergies and Adverse Reactions Plan Reason for Visit Encounters Immunizations Medications Problems Vital Signs Notes Section
--- OUTSIDE RECORDS SUMMARY | 2025-05-09 12:49 | XMS_ITS | CCD ---
Author Name Interface, [id number] lity Address [address] [place] [id number] [facility] Address [address] [place] [address] Care Team Providers Care Glass Curvature Gauger Name Role Phone Jalen RODRIGUEZ, Caitlyn Cervantes Unavailable Un available Allergies and Adverse Reactions Care Plan Reason for Visit Encounters Immunizations Medications Problems Procedures Social History Vital Signs Notes Section
[2025-05-09 12:54] LABS: Slide Review Reflex No
[2025-05-09] MEDS: dilTIAZem 5 MG/ML inj 20 MG IVP (12:56)
[2025-05-09 13:35] LABS: Chloride* 104 mmol/L (96-114); Sodium* 137 mmol/L (135-149)
[2025-05-09 13:36] LABS: Potassium* 4.1 mmol/L (3.6-5.1)
[2025-05-09 13:39] LABS: Anion Gap 9 mEq/L (7-15); Blood Urea Nitrogen* 22 mg/dL (7-30); Calcium* 9.9 mg/dL (8.4-10.6); Carbon Dioxide* 24 mmol/L (20-32); Creatinine* 0.8 mg/dL (0.5-1.5); Est. Creatinine Clearance* 55.82; Estimated Glomerular Filt Rate 81 ml/min; Glucose* 179 mg/dL (60-115)
[2025-05-09 13:51] LABS: NT Pro B Type NatriureticPept* 1320 pg/mL (See Note)
[2025-05-09] MEDS: APIXABAN 5 MG TABLET PO (14:58)
== END 2025-05-09 15:18 | disposition home or self-care (01) ==
PROVIDERS: Emergency Provider Family Medicine; PCP Physician Assistant Medical
DX: R55 Syncope and collapse (principal); I48.20 Chronic atrial fibrillation, unspecified; R07.89 Other chest pain
CPT/HCPCS: 36415; 80048; 83735; 83880; 84484; 85025; 93005; 94761; 96360; 99284; 99285; 99291; A9270; J7030

== ENCOUNTER 2025-05-21 14:25 | Outpatient (CLI) | payer MEDICARE, SELFPAY | END 2025-05-21 14:26 | disposition home or self-care (01) | LOC: LKVREF 14:26 | PROVIDERS: PCP Physician Assistant Medical; Visit Provider Physician Assistant Medical | DX: I48.91 Unspecified atrial fibrillation (principal) | CPT/HCPCS: 83880 ==

== ENCOUNTER 2025-06-22 09:35 | Outpatient (CLI) | payer MEDICARE, SELFPAY ==
--- NOTE | 2025-06-22 10:00 | CRLHL7_ITS ---
For Patients: As a result of the Century Cures Act, medical imaging exams and procedure reports are released immediately into your electronic medical record. You may view this report before your referring provider. If you have questions, please contact your health care provider. INDICATION: Pulmonary nodule, shortness of breath, endometrial cancer. TECHNIQUE: Chest CT was performed after the administration of intravenous contrast utilizing pulmonary embolism protocol. IV contrast: 95 mL Isovue 370. COMPARISON: : Chest radiograph 09/25/2024. FINDINGS: Pulmonary artery: No evidence of filling defects in the pulmonary arteries to suspect pulmonary embolism. The central pulmonary arteries are within normal limits for size. Heart: The RV/LV ratio is borderline increased, measuring 1. Pericardium: Unremarkable. Coronary: Coronary artery calcifications. Lower neck: Unremarkable. Thoracic aorta: Unremarkable. Mediastinum/lymph nodes: Prominent calcified subcarinal lymph node. Esophagus: Unremarkable. Airways/Lungs/Pleura: A 7 mm ground-glass pulmonary nodule in the right upper lobe (series 5 image 39). A 9 mm calcified granuloma in the right lower lobe. No consolidation, pleural effusion, or pneumothorax. Mild mosaic attenuation pattern predominantly in the lower lobes. Subsegmental atelectasis in the right middle lobe. Visualized upper abdomen: Small hiatal hernia. Cholecystectomy. Osseous structures and soft tissues: No acute or aggressive osseous lesions. . IMPRESSION: 1. No evidence of pulmonary embolism or acute thoracic process. 2. A 7 mm ground-glass pulmonary nodule in the right upper lobe. Follow-up chest CT in 6-12 months. 3. Mild mosaic attenuation pattern may suggest small airway disease. Please note that all CT scans at this facility use dose modulation, iterative reconstruction, and/or weight-based dosing when appropriate to reduce radiation dose to as low as reasonably achievable. Dictated by Gary Ceja MD @ 06/25/2025 8:50:58 AM (Electronically Signed)
[2025-06-22 10:07] LABS: Creatinine* 0.9 mg/dL (0.5-1.5); Estimated Glomerular Filt Rate 71 ml/min
== END 2025-06-22 09:36 | disposition home or self-care (01) ==
LOC: CT 09:35
PROVIDERS: PCP Physician Assistant Medical; Visit Provider Physician Assistant Medical
DX: R91.1 Solitary pulmonary nodule (principal); R55 Syncope and collapse; I48.91 Unspecified atrial fibrillation
CPT/HCPCS: 36415; 71275; 82565; Q9967

== ENCOUNTER 2025-07-11 09:53 | Outpatient (CLI) | payer MEDICARE, SELFPAY | END 2025-07-11 09:54 | disposition home or self-care (01) | PROVIDERS: PCP Physician Assistant Medical; Visit Provider Physician Assistant Medical | DX: D64.9 Anemia, unspecified (principal); E11.9 Type 2 diabetes mellitus without complications | CPT/HCPCS: 82607; 82728; 82746; 83540; 83550 ==

== ENCOUNTER 2025-08-22 21:16 | Emergency (ER) | payer MEDICARE, SELFPAY ==
--- OUTSIDE RECORDS SUMMARY | 2025-08-22 21:19 | XMS_ITS | Clinical Summary ---
Author Organization [facility] Address [address] [place] [id number] Care Team Providers Care Spring Production Supervisor Name Role Phone Sona Fink PA-C Primary Care Provider Allergies Active AllergyReactionsCriticalityNoted AxtzXqyfqltcUamhoqvLov25/25/2013Codeine QehyhmnrsPql44/25/2013Hydrocodone-QurccsdzhphyeIukpnyEwi83/20/2006Ibuprofen KxaavkSbk55/25/3101WtousvcqciyRimifbyCdu63/16/2007 Other reaction(s): Edema Medications MedicationSigDispense QuantityRefillsLast FilledStart DateEnd DateStatus albuterol 108 (90 Base) MCG/ACT IN inhaler 09/21/2007ctive cyclobenzaprine 10 MG PO tablet 01/27/2007ctive fluticasone 50 MCG/ACT NA nasal spray 06/21/2007ctive metoprolol succinate ER 25 MG PO 24 hr tablet Take 25 mg by mouth08/14/2019Active fluticasone-salmeterol 250-50 MCG/DOSE IN inhaler Indications:Moderate persistent asthma without complicationInhale 1 puff into the lungs every 12 hours 1 Inhaler Active metFORMIN 500 MG PO tablet Indications:Type 2 diabetes mellitus with other specified complication, unspecified whether technician terminal and repeater insulin use (H)Take 1 tablet (500 mg) by mouth 2 times daily (with meals) 180 tablet Active glipiZIDE 10 MG PO 24 hr tablet Indications:Type 2 diabetes mellitus with other specified complication, unspecified whether half-way insulin use (H)Take 2 tablets (20 mg) by mouth daily 60 tablet 11010/31/2019Active ipratropium - albuterol 0.5 mg/2.5 mg/3 mL (DUONEB) 0.5-2.5 (3) MG/3ML neb solution Indications:Post-viral cough syndrome,Moderate persistent asthma with acute exacerbationTake 1 vial (3 mLs) by nebulization every 6 hours as needed for shortness of breath / dyspnea or wheezing 1 Box Active rosuvastatin (CRESTOR) 10 MG tablet Indications:Hyperlipidemia with target LDL less than 100Take 1 tablet (10 mg) by mouth daily 90 tablet Active Active Problems ProblemNoted DateDiagnosed DateModerate persistent plsunm6611/03/2019Type 2 diabetes mellitus treated without trsuccq1811/03/2019Morbid bnflmic0611/03/2019 Daocdtdbdeuufwjpqx75/21/2020Essential fbxwoxtjoeht39/21/2020Low back pain 08/07/2013 Immunizations ImmunizationAdministration DatesNext DueInfluenza (H1N1)11/22/2009Influenza (IIV3) PF07/23/2006,07/04/2004,07/10/2003,08/09/2000Influenza (prior to 2023) 11/22/2009Pneumococcal 23 crnsrz6911/01/2013TDAP Vaccine (Adacel)03/24/2011 Social History Tobacco UseTypesPacks/DayYears UsedDateSmoking Tobacco: NeverSmokeless Tobacco: NeverAlcohol UseStandard Drinks/WeekCommentsNo0 (1 standard drink = 0.6 oz pure alcohol)PHQ-2AnswerDate RecordedPHQ-2 Dvjkn914Adolescent EducationAnswer Date RecordedGetting School Help NeededNot on file3CommentsNo Sex and Gender InformationValueDate RecordedSex Assigned at BirthNot on file Legal DvfJzpnko11/04/2012 3:14 AM CSTGender IdentityNot on fileSexual OrientationNot on file Last Filed Vital Signs Vital SignReadingTime TakenCommentsBlood Cwqkhdsp823/71005/11/2025 5:15 PM CDT Ynjjl0407/29/2025 5:15 PM VTDNmwogwibcvf38.5 ??C (97.7 ??F)05/11/2025 1:46 PM CDTRespiratory Ngpg281905/11/2025 1:46 PM CDTOxygen Nayvngpohj43%05/11/2025 4:48 PM CDTInhaled Oxygen Concentration--Wrvbai23.9 kg (211 lb 6.7 oz)05/11/2025 1:46 PM DCOGomajd622.7 cm (5' 8)05/11/2025 1:46 PM CDTBody Mass Index32.15005/11/2025 1:46 PM CDT Plan of Treatment Health MaintenanceDue DateLast DoneCommentsADVANCE CARE NTGTYBFS44/10/1959NNUAL REVIEW OF HM ESDZTH11 1958STHMA ACTION PLAN1958CT COLONOGRAPHY 1958DEXA1958EYE EXAM1958FIT1958FLEX SIG1958 OHWALIPLVDZZ26/10/1959sDNA (Cologuard)1958HEPATITIS C VMHUTDVNX68/10/1977 RSV VACCINE (1 - Risk 50-74 years 1-dose series)2008ZOSTER VACCINE (1 of 2)2008PNEUMOCOCCAL VACCINE 50+ YEARS (2 of 2 - PCV) MAMMO NFAAXZOQT271C, 08/07/2013, 08/07/2013STHMA CONTROL TESTLIPID DIABETIC FOOT EXAMFALL RISK JVGJHHHJIU22/10/2024MEDICARE ANNUAL WELLNESS VISIT4PHQ-2 (once per calendar year)2024 10/31/2019COVID-19 VACCINE ( season)/, 01/07/2022, 06/27/2021, Additional history existsINFLUENZA VACCINE (#1), 11/22/2009, 07/23/2006, Additional history hcujraFOL81, 10/31/2019, 08/07/2013, Additional history existsDTAP/TDAP/TD VACCINE (3 - Td or Tdap), 03/24/20112357WYJJOBAKOFX19/04/64375410/17/2024, 10/17/2024, 05/28/2011COLORECTAL CANCER LMXDJNGZJ64/04/2035HPV VACCINE (No Doses Required)CompletedMENINGITIS VACCINEAged OutNo longer eligible based on patient's age to complete this topic Procedures Procedure NamePriorityDate/TimeAssociated DiagnosisCommentsBASIC METABOLIC PANEL (LIMITED OCCURRENCES)STAT05/11/2025 2:05 PM CDT LIPID REFLEX TO DIRECT LDL XPEWPJkfawcc53/18/2020 2:20 PM TRESTLE BUILDER Type 2 diabetes mellitus with other specified complication, unspecified whether half-way insulin use (H) HEMOGLOBIN Z2WPordzjf79/18/2020 2:20 PM TRESTLE BUILDER Type 2 diabetes mellitus with other specified complication, unspecified whether half-way insulin use (H) MAMMOGRAM - HIM SCAN06/20/2015 12:00 AM CDTCOLONOSCOPY - HIM SCAN05/28/2011 12:00 AM CDTfrom Last 3 Months or Most Recently Relevant to Health Maintenance Results * (ABNORMAL) Basic Metabolic Panel (Limited Occurrences) (05/11/2025 2:05 PM CDT)ComponentValueRef RangeTest MethodAnalysis TimePerformed AtPathologist UfblyzaerFqamiy491133 - 145 mmol/L05/11/2025 2:35 PM CDTRH LABORATORYPotassium 4.03.4 - 5.3 mmol/L05/11/2025 2:35 PM CDTRH NNZSALIXZRFukimyqq14422 - 107 mmol/L05/11/2025 2:35 PM CDTRH LABORATORYCarbon Dioxide (CO2)2422 - 29 mmol/L 05/11/2025 2:35 PM CDTRH LABORATORYAnion Zaj228 - 15 mmol/L05/11/2025 2:35 PM CDTRH LABORATORYUrea Xqcowpib27.08.0 - 23.0 mg/dL05/11/2025 2:35 PM CDTRH LABORATORYCreatinine0.820.51 - 0.95 mg/dL05/11/2025 2:35 PM CDTRH LABORATORY GFR Ynrfbkwc96>60 mL/min/1.33l23605/11/2025 2:35 PM CDTRH LABORATORYComment:eGFR calculated using 2020 CKD-EPI equation.Calcium9.88.8 - 10.4 mg/dL05/11/2025 2:35 PM CDTRH QPGFQNPZVGIczlrqi914(H)70 - 99 mg/dL05/11/2025 2:35 PM CDTRH LABORATORYSpecimen (Source)Anatomical Location / LateralityCollection Method / VolumeCollection TimeReceived TimeBloodBLOOD SPECIMEN / UnknownVenipuncture / Sccjdam7205/11/2025 2:05 PM CDT05/11/2025 2:09 PM CDT Narrative Authorizing ProviderResult TypeResult StatusEdmilvia Saleem MDLAB - BLOOD ORDERABLESFinal ResultPerforming OrganizationAddressCity/State/ZIP CodePhone Number [facility] [address] Lab (1st floor, no room number) [place] [address], [facility] * (ABNORMAL) Lipid panel reflex to direct LDL Fasting (10/31/2019 2:20 PM TRESTLE BUILDER) ComponentValueRef RangeTest MethodAnalysis TimePerformed AtPathologist VemupccshLhldcuryxnk386<200 mg/dL11/01/2019 9:46 AM [facility]iglycer[facility]204(H)<150 mg/dL11/01/2019 9:46 AM [facility]Comment: Borderline high: ??150-199 mg/dl High: ? 200-499 mg/dl Very high: >499 mg/dl HDL Xohivkzfhmg52(L)>49 mg/dL11/01/2019 9:47 AM [facility] LDL Cholesterol Bxmjxxkekb98<100 mg/dL11/01/2019 9:47 AM [facility]Comment:Desirable: <100 mg/dlNon HDL Jgcnwjzueal820<130 mg/dL11/01/2019 9:47 AM [facility]ENTERpecimen (Source)Anatomical Location / LateralityCollection Method / VolumeCollection TimeReceived TimeBlood specimen (specimen)10/31/2019 2:20 PM CST10/31/2019 2:21 PM TRESTLE BUILDER Narrative Authorizing ProviderResult TypeResult StatusRamona Martha Dewitt PA-CLAB - BLOOD ORDERABLESFinal ResultPerforming OrganizationAddressCity/State/ZIP Code Phone Number [facility] [address] [place] [address], [facility] [phone] * (ABNORMAL) Hemoglobin A1c (10/31/2019 2:20 PM TRESTLE BUILDER)ComponentValueRef RangeTest MethodAnalysis TimePerformed AtPathologist SignatureHemoglobin A1C8.7(H)0 - 5.6 %10/31/2019 2:36 PM CSTFAST. MARY'S HOSPITALComment: Results confirmed by repeat test Normal <5.7% Prediabetes 5.7-6.4% Diabetes 6.5% or higher - adopted from ADA consensus guidelines. Specimen (Source)Anatomical Location / LateralityCollection Method / Volume Collection TimeReceived TimeBlood specimen (specimen)10/31/2019 2:20 PM TRESTLE BUILDER 10/31/2019 2:21 PM TRESTLE BUILDER Narrative Authorizing ProviderResult TypeResult StatusRamona Martha Dewitt PA-CLAB - BLOOD ORDERABLESFinal ResultPerforming OrganizationAddressCity/State/ZIP Code Phone Number [facility] [address] [place] [address] * MAMMOGRAM - HIM SCAN (06/20/2015 12:00 AM CDT)Anatomical RegionLaterality ModalityOtherSpecimen (Source)Anatomical Location / LateralityCollection Method / VolumeCollection TimeReceived Time06/20/2015 Narrative Authorizing ProviderResult TypeResult StatusProvider OutsideIMG MAMMOGRAPHY ORDERABLESFinal Result * COLONOSCOPY - HIM SCAN (05/28/2011 12:00 AM CDT)Specimen (Source)Anatomical Location / LateralityCollection Method / VolumeCollection TimeReceived Time 05/28/2011 Narrative Authorizing ProviderResult TypeResult StatusProvider OutsidePROCEDURESFinal Result from Last 3 Months or Most Recently Relevant to Health Maintenance Insurance Advance Directives For more information, please contact: [phone] * Full Code (Latest Code Status on File) Date ActivatedDate LintwnzkmfkRpfalgba19/26/2013 10:56 AM05/11/2025 1:36 PM * Full Code Date ActivatedDate SwwyyoghvkeFqbtmplu92/25/2013 7:10 PM08/08/2013 10:56 AM Care Teams Team MemberRelationshipSpecialtyStart DateEnd Date Sona Fink PA-C [facility] [address] [place] [address] PCP - GeneralPhysician Assistant8/29/25
--- OUTSIDE RECORDS SUMMARY | 2025-08-22 21:19 | XMS_ITS ---
Author Name Interface, [id number] lity Address [address] [place] [address] [facility] Oncology Address [address] [place] [address] Support Name Relationship Address Phone Joann Hernandez Spouse Unknown Unavailable Allergies and Adverse Reactions Medication/Group Name Reaction Severity Date ibuprofen 07/23/20257847slwjtvl10/10/0098dnilwsbuwx76/10/3549Wtcombdusny23/10/2025moxicillin 07/23/20259486soqkfgr32/10/2709swvjnkzehwx14/10/3650gzklkoghddq60/10/2025 Plan Date Type Value 07/23/2025 APPOINTMENT OV 30 MIN Reason for Visit OV 30 MIN Encounters Date Name 07/23/2025 History of endometri al cancer Medications Date Name Route Dose Frequency Instructions Start Date End Date Status Fill Status Indication 11/29/2023 Pantoprazole (Sodium) Oral Delayed Release orally 40.0 mg daily ebeuja9912/01/2023Multivitamins Oral Kvutlbdxoxcg71/20/2024ocosahexanoic Acid- Eicosapentanoic Acid Oral 120 mg-180 vrckyzar94/20/2024Magnesium Oxide Oral rnoqdw0811/29/2023Lisinopril Tawmmqncin01.0 nvwepxxsjzyoa84/18/2024Metformin Oral luwrfn4463.0 /18/2024osuvastatin Calcium Nkythtefmw96.0 mgdaily hwydgm1511/29/2023Fluticasone Nasal Ceres 50 mcg/mlrnmkwdcylkrni49/20/2024 Albuterol-Ipratropium Nebulized 3 mg (2.5 mg base)-0.5 mg/3 pXghqunl94/18/2024 Metoprolol Oral 24 hr Tab (Succinate)zsvnti38.0 hxsuyetqwfphu88/20/2024 Cholecalciferol Zdfnbfzgdp28/20/2024Fluticasone-Salmeterol Inhaler 250 mcg-50 mcg/Ienfdthaxc59/18/2024lbuterol HFA Inhaler 90 mcg/xkzzdtzqudgldyu74/20/2024 Vitamin B Complex Oral Kbwvnusumtbin23/01/2025Hydrochlorothiazide Sbscjwutpq54.5 /18/2024mlodipine Oralorally5.0 sejxcssrvipaw31/18/2024 Cyclobenzaprine Oralorally5.0 nrzetibspqj10/20/2024Glucosamine Oralactive 12/01/2023Ferrous Sulfate Oralactive Problems Diagnosis Status Date of Diagnosis Resolution Date Postmenopausal bleeding (finding) Active Diarrhea (finding)ActiveChronic constipationActiveConstipation (finding)Active CounselingActiveUterine cancerActiveHistory of endometrial cancerActive Notes Section * PICTURE FRAMES INSPECTOR Follow-Up GYNECOLOGIC ONCOLOGY FOLLOW-UP VISIT Patient Name: TAMIKA HERNANDEZ : 1960 Date of Visit: 07/23/2025 Referring Provider: Mansi Ramsey MD (Obstetrics/Gynecology) Attending: Caitlyn Rao (Gynecological/Oncology) Chief Complaint ([facility]): Surveillance?? History of Present Illness ([facility]): Tamika Hernandez is a??64-year-old female with a history of stage IA grade 2 endometrial cancer. Had postmenopausal bleeding starting June 2023. Underwent difficult Hysteroscopy D&C complicated by suspected uterine perforation. Insufficient??sampling due to severe cervical stenosis. No recent vaginal bleeding, notes abnormal vaginal discharge light brown has increased. Otherwise, no abdominal/pelvic pain, change in BMs, early satiety, bloating, cough, shortness of breath.?? 12/23/23:??Examination under anesthesia Robot-assisted total laparoscopic hysterectomy, bilateral salpingo-oophorectomy, bilateral pelvic sentinel lymph node dissection, cystoscopy, pelvic washings??(Dr. Rao).?Stage IA FIGO grade 2 endometrial cancer?? 07/26/24: CT AP w/ for RLQ and back pain.??IMPRESSION: Small hypodense left hepatic lesions, less than a centimeter are incompletely assessed, most compatible with a benign etiology such as cyst or hemangioma in the absence of known malignancy. Consider further evaluation ultrasound if clinically in dicated. Colonic diverticulosis without diverticulitis. 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 Interval History ([facility]) Tamika is here today for a surveillance visit.?? She is feeling well and is without concerns.?? Deniesabdominal pain, vaginal bleeding.?? No change in bladder or bowel function.?? Has lost some weight since last visit and this has been intentional.?Continues to work towards additional weight loss.? Review of Systems: A complete 14-point review of systems is negative except as noted??in the above history of present illness. Past Medical History: Cervical stenosis Obstructive sleep apnea Type 2 DM (med adjustments since 09/2023 elevated Hgb A1C, has had intentional weight loss - most recently Hgb A1C 7.5 end of October per patient report)?? Asthma (well controlled)?? Hypertension Hyperlipidemia?? Surgical History: Bilateral tubal ligation Cholecystectomy Breast biopsy Sinus surgery (multiple) Robot-assisted total laparoscopic hysterectomy, bilateral salpingo-oophorectomy, bilateral pelvic sentinel lymph node dissection, cystoscopy Pelvic washings?? 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 Allergies: * Penicillins * amoxicillin * aspirin * codeine * epinephrine * hydrocodone * ibuprofen * prednisone Medications: * Glucosamine Oral * Rosuvastatin Calcium Oral 10 mg orally daily * Vitamin D3 (Cholecalciferol Oral) * Metoprolol Oral 24 hr Tab (Succinate) 50 mg orally daily * Cyclobenzaprine Oral 5 mg orally prn * Albuterol HFA Inhaler 90 mcg/actuation * Hydrochlorothiazide Oral 12.5 mg orally daily * Lisinopril Oral 20 mg orally daily * Pantoprazole (Sodium) Oral Delayed Release 40 mg orally daily * Advair Diskus (Fluticasone-Salmeterol Inhaler 250 mcg-50 mcg/Dose) * Albuterol-Ipratropium Nebulized 3 mg (2.5 mg base)-0.5 mg/3 mL * Ferrous Sulfate Oral * Fish Oil (Docosahexanoic Acid-Eicosapentanoic Acid Oral 120 mg-180 mg) * Magnesium Oxide Oral * Metformin Oral 2000 mg orally daily * Multivitamins Oral Tablet * Amlodipine Oral 5 mg orally daily * Fluticasone Nasal Ceres 50 mcg/actuation * Vitamin B Complex Oral Capsule Family History: No1st degree relative family history of breast, ovarian, uterine, colon cancer Social History: Lives with her . 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 ??No tobacco??use, illicit drug use, alcohol use. Health Maintenance: Colonoscopy:??2022 Mammogram:??2021 DEXA scan: 2022?? Vital Signs: Blood pressure: 106/58, Sitting, R arm, Large, Pulse: 67, Temperature: 97.8 F, Respirations: 18, O2sat: 97%, At Rest, Room Air, Pain Scale: 0, Height: 67 in, Weight: 212 lb, BSA: 2.07, BMI: 33.2 kg/m2 Performance Status ECOG/Karnofsky ? Physical Exam ([facility]): General: appears well and in no apparent distress Respiratory: ??normal respiratory effort Heart: peripheral perfusion normal, normal heart rate?? Abdomen: soft, nondistended, nontender to palpation and without masses. no rebound or guarding. Neuro: alert and oriented, normal speech?? Psych: appropriate mood and affect?? LNs: no inguinal adenopathy?? Pelvic: ??No external lesions. ??Normal vagina with healthy appearing mucosa and no lesions. Vaginal cuff intact without tenderness. Uterus, cervix and adnexa surgically absent. ??Rectal exam deferred. ??Bimanual exam unremarkable without nodularity, masses, or pelvic fullness. Laboratory Data: none new? Imaging: as above. MRI Pelvis 10/21/23 Technique: [...] x 2.3 x 2.6 cm Problems: * History of endometrial cancer * Chronic constipation * Constipation (finding) * Counseling * Diarrhea (finding) * Postmenopausal bleeding (finding) * Uterine cancer ( Stage Date: Unknown, Stage FIGO IA Histopathologic Type: Endometrioid carcinoma; Histologic Grade: G2; ) Assessment & Plan ([facility]): Tamika Hernandez is a??64-year-old female referred to[facility] with a historyof Stage IA FIGO grade 2 endometrial cancer s/p robot- assisted total laparoscopic hysterectomy Bilateral salpingo-oophorectomy, bilateral pelvic sentinel lymph node dissection, cystoscopy, pelvic wash ings??(12/23/23)?? Endometrial cancer* Stage IA FIGO grade 2;??no further treatment recommended. * recommends surveillance: q6 month x 2 years (12/2025) then annual visits. * Signs/symptoms??of recurrence reviewed?? * GEOVANNY on exam.?? Return to clinic in 6 months for surveillance then transition to annual visits. Pain Care Management: Pain Scale: 0 Patient Care needs: Depressions Status: Was not screened Reason: Patient Refused; Screening Date: 07/23/2025 Psycho-Social PHQ-9 Follow-up Plan (if applicable): Smoking Status: Smoking Tobacco : Never smoker; Smokeless Tobacco : Never used smokeless tobacco; Vaping : Never vaped Brandi Garcia CNP Copy to: Mansi Ramsey MD (Referring) FAX Sona Fink PA-C Electronically signed by Brandi Garcia CNP 07/23/2025 11:20 SENIOR AUDITOR
--- OUTSIDE RECORDS SUMMARY | 2025-08-22 21:20 | XMS_ITS | Clinical Summary ---
Author Organization [facility] Address [address] [place] [id number] Care Team Providers Care Equity Trader Name Role Phone Sona Fink PA-C Primary Care Provider [phone] Allergies Active AllergyReactionsCriticalityNoted GwpqPfacgzvuDsvwhdatheaVgov64/10/2024 AspirinBronchospasm,IepoaodwRxsc54/22/2006 asmatic JdfqxbrOuzxg24/20/7815EwmxrykpbftVzfgvla84/10/2024IbuprofenAnaphylaxisHigh 10/28/20123026WttnwkyuuyiJwwyhlvf51/10/2024PenicillinsHives,Itching,Edema10/29/2006 PrfiklraelIzlzqrdwbfwUmlfuh44/09/2020Hydrocodone-AcetaminophenNausea Only 11/02/2005 Medications MedicationSigDispense QuantityRefillsLast FilledStart DateEnd DateStatus CYCLOBENZAPRINE 10 MG TAB Take 5 mg by mouth at bedtime if needed.ctive BLOOD GLUCOSE TEST STRIPS use as directed 3 months ctive FLONASE 50 MCG/ACTUATION NASAL SPRAY AEROSOL Indications:Chronic rhinitisinhale 1 spray in each nostril by nasal route once daily 1 ctive ALBUTEROL SULFATE 2.5 MG/3 ML NEB SOLUTION Indications:Wheezinginhale 3 milliliters (2.5 mg) by nebulization 1 ctive ALBUTEROL 90 MCG/ACTUATION AEROSOL INHALER inhale 2 puffs by inhalation route every 4-6 hours as needed 3 ctive ADVAIR DISKUS 250 MCG-50 MCG/DOSE FOR INHALATION inhale 1 puff by inhalation route 2 times per day morning and evening approximately 12 hours apart 1 ctive metFORMIN (GLUCOPHAGE) 500 mg tablet Take 2,000 mg by mouth once daily.10/31/2019Active glipiZIDE extended-release (GLUCOTROL XL) 10 mg Extended-Release tablet Take 10 mg by mouth once daily.10/31/2019Active lisinopriL (PRINIVIL; ZESTRIL) 10 mg tablet Take 20 mg by mouth once daily.07/11/2020Active famotidine (PEPCID) 20 mg tablet Take 20 mg by mouth once daily. Take 20 mg by mouth once daily.11/28/2021ctive amLODIPine (NORVASC) 5 mg tablet Take 5 mg by mouth once daily.11/25/2023ctive Cordium G6 High Scaler for continuous blood glucose monitor (CGM) As directed for coninuous glucose monitoring*09/30/2023ctive albuterol-ipratropium (DUONEB) (2.5-0.5 mg) in 3 mL NEBULIZATION solution Inhale 1 Neb via a nebulizer every 4 hours if needed.Active pantoprazole (PROTONIX) 20 mg tablet Take 20 mg by mouth once daily before a meal.11/26/2023ctive hydroCHLOROthiazide 12.5 mg tablet Take 1 Tablet by mouth once daily.5Active metoprolol succinate (TOPROL XL) 50 mg sustained-release tablet Indications:Palpitations,Heart palpitationsTake 1 Tablet (50 mg) by mouth once daily. 90 Tablet 5Active apixaban (ELIQUIS) 5 mg tablet Indications:prevent thromboembolism in chronic atrial fibrillationTake 1 Tablet (5 mg) by mouth two times daily. 180 Tablet 5Active rosuvastatin (Crestor) 40 mg tablet Indications:Atherosclerosis of coronary artery, unspecified vessel or lesion type, unspecified whether angina present, unspecified whether choctaw or transplanted heartTake 1 Tablet (40 mg) by mouth at bedtime. 90 Tablet 5Active dilTIAZem CD (CARDIZEM CD) 120 mg extended release 24 hr capsule Indications:PAF (paroxysmal atrial fibrillation) (HC)TAKE 1 CAPSULE (120 mg) BY MOUTH DAILY 90 Capsule 5Active Active Problems ProblemNoted DateDiagnosed RdkuDybfoij60/19/2007Other and unspecified wsrettnpyqxbij37/27/2007DM, UNCOMPLICATED, TYPE II10/09/2005PNEUMONIA - PIGXOSVIP56/31/2001CHOLELITHIASIS W/O CHOLECYSTITIS W/O OBST07/14/2000 HYPOTHYROIDISM NOS07/14/2000MOLE-TRUNK04/05/2000PAP SMEAR04/05/2000PLANTAR PTMTICDVO17/22/2000MYLAGIA - NOS01/22/2000ASTHMA- MILD XTHDYZCJOOEG12/11/2000 OBESITY - NOS09/13/1999 Resolved Problems ProblemNoted DateDiagnosed DateResolved DateRegular yxsyllacebv4310/28/20129879Tlpksnagqo00/02/Myopia Encounters DateTypeDepartmentCare JibyYtapuniabrc19/30/2025 11:00 AM CDTAncillary Procedure [facility] [address] [place] [address] 06/12/20256447Xlivlc50/27/2025Refill [address] [place] [phone] Willie Connolly MD Refill Request (Diltiazem Cd)06/08/2025Telephone [address] [place] [phone] Willie Connolly MD Results (Zio)06/04/2025Telephone [address] [place] [phone] Willie Connolly MD Results (Cor CTA)05/24/2025 1:00 PM CDTAncillary Procedure [facility] [address] [place] [address] 05/24/2025Travelfrom Last 3 Months Immunizations ImmunizationAdministration DatesNext DueBeatriz IIV3 (Age >=3 years) 07/23/2006,07/04/2004,07/10/2003,08/09/2000 Family History Medical HistoryRelationNameCommentsHeart DiseaseFatherOtherMotherparkinson, dementiaGeneticOtherheart disease~stroke~hypertension~arthritis~headaches~lazy eye - son/heart disease - Mother age 50~s troke~hypertension~arthritis~headaches~lazy eye - son~Family history of:~~Breast Cancer: No~~Ovarian Cancer: No~~Colon CA: no~~Prostate CA: no~~Osteoporosis: Mother~~ ~~DM: No~~Thyroid Dz: NoRelationNameStatusCommentsFatherDeceased Maternal GrandfatherDeceasedMaternal GrandmotherDeceasedMotherDeceasedOther Paternal GrandfatherDeceasedPaternal GrandmotherDeceased Social History Tobacco UseTypesPacks/DayYears UsedDateSmoking Tobacco: NeverSmokeless Tobacco: Never Tobacco Cessation:Counseling Given: Not Answered Alcohol UseStandard Drinks/WeekCommentsNo0 (1 standard drink = 0.6 oz pure alcohol)Financial Resource StrainAnswerDate RecordedDifficulty of Paying Living ExpensesNot on file2Difficulty of Paying Living ExpensesNot on file 2CommentsNoSex and Gender InformationValueDate RecordedSex Assigned at BirthNot on fileLegal LjoXqksji99/14/2013 5:24 AM CSTGender Identity Not on fileSexual OrientationNot on file Obstetrics History GravidaParaTermPretermABIABSABEctopicMultipleLivingLive [id number] OutcomeGATotal LaborLabor/2nd/4fmKpdfapSujUbrvUogdWYEPppX4K0YwqmSxouFEXVxvzCtew TermTerm Last Filed Vital Signs Vital SignReadingTime TakenCommentsBlood Vervguqo808/5409/01/2025 2:04 PM CDT Fwhyv5785 2:04 PM NMAHhuuxyaaqjo32 ??C (96.8 ??F)12/23/2023 4:45 PM CDT Respiratory Kjei0201 6:45 PM CDTOxygen Samlavzvwy33%05/18/2025 2:04 PM CDTInhaled Oxygen Concentration--Oljbhk74.3 kg (212 lb 6.4 oz)05/18/2025 2:04 PM SGOAyniyi686.7 cm (5' 8)05/18/2025 2:04 PM CDTBody Mass Index32.309 2:04 PM CDT Plan of Treatment Health MaintenanceDue DateLast DoneCommentsTetanus aasgkbf4809/22/1969Depression screening for age 12+1970Hepatitis C screening for age 18- Pneumococcal series for age 50+ (1 of 2 - PCV)1977Colonoscopy through age Mammogram for age 45-, 08/21/2003RSV vaccine for adults or (1 - Risk 50-74 years 1-dose series)2008Zoster (shingles) series for age 50+ (1 of 2)2008Lipids for age 45-01/04/2007, 07/23/2006, 03/04/2006, Additional history existsDEXA/DXA scan for age 65+2023Medicare Wellness for age 65+2023OVID-19 vaccine series ( season), 06/27/2021, 06/06/2021Influenza Vaccine (#1), 07/04/2004, 07/10/2003, Additional history existsBMI (ht and wt on same day) for age 18+, 01/16/2022, 07/22/2020Hepatitis B series for 19+Aged OutNo longer eligible based on patient's age to complete this topic Procedures Procedure NamePriorityDate/TimeAssociated DiagnosisCommentsECHO TTE COMPLETE WO ERIKEQHNJqacexr06/30/2025 11:28 AM CDT Paroxysmal atrial fibrillation (HC) CT CARDIAC CORONARY ARTERIES CV DUAL XHYLFlxoryx35/11/2025 2:03 PM CDT Chest pressure Demand ischemia (HC) CT CARDIAC CORONARY ARTERIES RAD DUAL ZHEPDgrpedd06/11/2025 2:03 PM CDT Chest pressure Demand ischemia (HC) SCAN CORRESP-EKG KQQVRKP8805/23/2025 1:43 PM CDT LIPID UUSBWNxnbzoy56/24/2007 10:33 AM CDT Hyperlipidemia XR MAMMO SCREENING BILATERAL (IA)Gxtczpk4010/16/2003 2:32 PM MOLD HOLDER from Last 3 Months or Most Recently Relevant to Health Maintenance Results * ECHO TTE COMPLETE WO CONTRAST (06/12/2025 11:28 AM CDT)ComponentValueRef Range Test MethodAnalysis TimePerformed AtPathologist SignatureAORTIC VALVE MEAN PG5 mmHgEJECTION KXMHXKUQ16%LVEDD4.6cmEJECTION YZRREDWL45 - 60%Anatomical Region LateralityModalityUltrasoundSpecimen (Source)Anatomical Location / Laterality Collection Method / VolumeCollection TimeReceived Time06/12/2025 10:59 AM CDT Narrative 06/12/2025 11:57 AM CDT ECHOCARDIOGRAM TAMIKA Pamella DAVID ? Accession#: ?? [id number] : ?1960 64 years Study Date: ?? 06/12/2025 10:59:53 AM Gender: F ?BP: ? 120/54 mmHg Height: 172.72 cm ?BSA: ?2.10 m? Weight: 96.16 kg ? Tech: ? MSR ? Referring MD: WILLIE CONNOLLY Site: ? [facility] Reading Location: [facility] Patient Location: Outpatient. Procedure: 2D, Color Doppler and Spectral Doppler. Indication for study: Paroxysmal atrial fibrillation Cardiac Rhythm: Normal sinus.Study quality: Good. Final Impressions: 1. Normal LV size, normal wall thickness, normal global systolic function with an estimated EF of 55 - 60%. 2. Normal diastolic function. 3. Right ventricular cavity size is normal, global systolic RV function is normal. 4. No significant valve disease detected. Chamber Sizes and Function Normal left ventricular size, normal wall thickness, normal global systolic function with an estimated EF of 55 - 60%. No resting regional wall motion abnormality visualized. Left atrial size is normal. Left atrial pressure is normal. Right ventricular cavity size is normal, global systolic RV function is normal. RV wall thickness is normal. The right atrium is normal. The pulmonary artery is of normal size and origin. The sinus of Valsalva is normal sized. The ascending aorta is normal sized. Valves, RV Pressures and Diastolic Function The aortic valve is trileaflet and calcified, no stenosis and no regurgitation. The mitral valve isnormal in structure, trace mitral regurgitation. Normal diastolic function. The tricuspid valve is normal in structure, trace tricuspid regurgitation. Unable to assess right ventricular systolic pressure. The pulmonic valve is normal. Mild pulmonary regurgitation. Masses, Effusion, Shunts There is no pericardial effusion. The inferior vena cava is normal sized, respiratory size variation greater than 50%. No left to right shunting was detected by limited color flow Doppler interrogation of the interatrial septum. MEASUREMENTS AND CALCULATIONS 2-D Measurements and LV Function: LVID (d) ? 4.6 cm ? LV FS% (2D) ?? 43 % LVID (s) ? 2.6 cm ? LVOT diameter 2.2 cm IVS (d) ?1.0 cm ? HR ?52 bpm LVPW (d) ? 0.9 cm ? LA Vol index ??30 ml/m2 Ao Sinus ? 3.2 cm ? RV Basal Diam 3.6 cm Ao Sinus ULN 3.8 cm * Asc Ao ? 3.6 cm Asc Ao ULN ?? 3.9 cm * * Input BSA outside of range, reported values correspond to BSA = 1.9 Diastology: Mitral ?Tissue Doppler E Peak 0.8 m/s ??e', Septum ? 0.09 m/s A Peak 0.6 m/s ??e', Lateral ?0.13 m/s E/A ?1.3 ?E/e' Average ?? 6.92 DT ? 155 msec Aortic Valve: Vmax ? 1.6 m/s ??WILBUR (V) ?? 2.03 cm? VTI ?0.37 m ?? WILBUR (I) ?? 2.01 cm? LVOT V max 0.8 m/s ??Max PG ?10 mmHg LVOT VTI ?? 0.20 m ?? Mean PG ?? 5 mmHg SV ? 75 ml ?Dim Index 0.53 SV index ?? 36 ml/m? CO ?3.9 l/min ?CI ?1.8 l/min/m? Mitral Valve: MVA ?4.9 cm? MV P 1/2 45 msec Tricuspid Valve and estimated PA pressures: TAPSE 2.8 cm Pulmonic Valve: PIEDV 1.0 m/s . This study was interpreted by an [facility] accredited facility. ??Final ?? Procedure Note Vladimir Christie MD - 06/12/2025 ECHOCARDIOGRAM TAMIKA HERNANDEZ : 1960 64 years Study Date: 06/12/2025 10:59:53 AM Gender: F BP: 120/54 mmHg Height: 172.72 cm BSA: 2.10 m? Weight: 96.16 kg Tech: AMADO Referring MD: WILLIE CONNOLLY Site: [facility] Reading Location: [facility] Patient Location: Outpatient. Procedure: 2D, Color Doppler and Spectral Doppler. Indication for study: Paroxysmal atrial fibrillation Cardiac Rhythm: Normal sinus.Study quality: Good. Final Impressions: 1. Normal LV size, normal wall thickness, normal global systolic functionwith an estimated EF of 55 - 60%. 2. Normal diastolic function. 3. Right ventricular cavity size is normal, global systolic RV functionis normal. 4. No significant valve disease detected. Chamber Sizes and Function Normal left ventricular size, normal wall thickness, normal globalsystolic function with an estimated EF of 55 - 60%. No resting regionalwall motion abnormality visualized. Left atrial size is normal. Leftatrial pressure is normal. Right ventricular cavity size is normal, globalsystolic RV function is normal. RV wall thickness is normal. The rightatrium is normal. The pulmonary artery is of normal size and origin. Thesinus of Valsalva is normal sized. The ascending aorta is normal sized. Valves, RV Pressures and Diastolic Function The aortic valve is trileaflet and calcified, no stenosis and noregurgitation. The mitral valve is normal in structure, trace mitralregurgitation. Normal diastolic function. The tricuspid valve is normal instructure, trace tricuspid regurgitation. Unable to assess rightventricular systolic pressure. The pulmonic valve is normal. Mildpulmonary regurgitation. Masses, Effusion, Shunts There is no pericardial effusion. The inferior vena cava is normal sized, respiratory size variation greater than 50%. No left to right shunting was detected by limited color flow Doppler interrogation of the interatrialseptum. MEASUREMENTS AND CALCULATIONS 2-D Measurements and LV Function: LVID (d) 4.6 cm LV FS% (2D) 43% LVID (s) 2.6 cm LVOT diameter2.2 cm IVS (d) 1.0 cm HR 52bpm LVPW (d) 0.9 cm LA Vol index 30ml/m2 Ao Sinus 3.2 cm RV Basal Diam3.6 cm Ao Sinus ULN 3.8 cm * Asc Ao 3.6 cm Asc Ao ULN 3.9 cm * * Input BSA outside of range, reported values correspond to BSA = 1.9 Diastology: Mitral Tissue Doppler E Peak 0.8 m/s e', Septum 0.09 m/s A Peak 0.6 m/s e', Lateral 0.13 m/s E/A 1.3 E/e' Average 6.92 DT 155 msec Aortic Valve: Vmax 1.6 m/s WILBUR (V) 2.03 cm? VTI 0.37 m WILBUR (I) 2.01 cm? LVOT V max 0.8 m/s Max PG 10 mmHg LVOT VTI 0.20 m Mean PG 5 mmHg SV 75 ml Dim Index 0.53 SV index 36 ml/m? CO 3.9 l/min CI 1.8 l/min/m? Mitral Valve: MVA 4.9 cm? MV P 1/2 45 msec Tricuspid Valve and estimated PA pressures: TAPSE 2.8 cm Pulmonic Valve: PIEDV 1.0 m/s . This study was interpreted by an [facility] accredited facility. Final Authorizing ProviderResult TypeResult StatusMatthew Jerome Connolly MDECHO ORD Final Result * CT CARDIAC CORONARY ARTERIES CV DUAL READ (05/24/2025 2:03 PM CDT)Anatomical RegionLateralityModalityHEARTComputed TomographySpecimen (Source)Anatomical Location / LateralityCollection Method / VolumeCollection TimeReceived Time 05/24/2025 1:41 PM CDT Narrative 05/24/2025 3:17 PM CDT [facility] ? Cardiac CT Report ??MRN: ? [id number] ?Name: ? TAMIKA HERNANDEZ ?: ?Scan Date: ?Accession Number: ? [id number] ?Status: ? Final ? Electronically signed by John Aguiar 15:03:28 VITALS HEIGHT: 68 in ?(173 cm) WEIGHT: 212 lbs ?(96 kgs) BSA: 2.10 m^2 BMI: 32 kg/m^2 BP: 129 / 76 mmHg BASELINE HR: 46 BPM HEART RHYTHM: Normal Sinus Rhythm FINAL IMPRESSION 1. Multivessel non obstructive coronary artery disease. 2. Moderate coronary atherosclerosis burden. Total coronary artery calcium score 389. WHITAKER percentile based on age, gender, and race is 93 See separate radiology report for non-cardiac findings. RECOMMENDATIONS: - Patient exhibits elevated coronary atherosclerosis burden and will likely benefit from aggressive risk factor modification. STUDY QUALITY: Study quality is good. CAD-RADS: CAD-RADS Classification 2 (25-49% stenosis). CALCIUM SCORING: Total coronary artery calcium score 389. WHITAKER percentile based on age, gender, and race is 93. DOMINANCE: Right dominant coronary artery system. LM: The LM is normal. LAD: The proximal LAD has partially calcified atherosclerosis. There is mild proximal LAD calcification. There is a 25-49% proximal LAD stenosis. The mid LAD has partially calcified atherosclerosis. There is mild mid LAD calcification. There is a <25% mid LAD stenosis. There is mild distal LAD calcification. There is a <25% distal LAD stenosis. D1: The first diagonal is too small to characterize. D2: The second diagonal is normal. LCX: The proximal LCx has partially calcified atherosclerosis. There is mild proximal LCx calcification. There is a <25% proximal LCx stenosis. There is no mid LCx stenosis. Distal LCx stenosis indeterminate due to small vessel size. OM1: The first obtuse marginal is too small to characterize. OM2: The second obtuse marginal is normal. RCA: The proximal RCA has partially calcified atherosclerosis. There is a <25% proximal RCA stenosis. There is mild proximal RCA calcification. The mid RCA has partially calcified atherosclerosis. There is mild mid RCA calcification. There is a <25% mid RCA stenosis. There is no plaque in the distal RCA. There is no distal RCA stenosis. RIGHT PDA: The right PDA is normal. RIGHT PLB: The right posterolateral branch is normal. OTHER FINDINGS: Thoracic aorta: the aortic root is normal and measures 73b56r34 mm. The ascending aorta measures 31 x31 mm. No acute pathology Pericardium: No effusion. Left atrium: No SHLOMO thrombus Atrial septum: No evidence of shunt. Pulmonary veins: Normal anatomy. Mid pulmonary trunk: normal in size Coronary artery plaque quantification was calculated by [employer] High risk plaque burden is defined by any of the following: Presence of >=70% diameter stenosis Coronary calcium score >1000 Coronary calcium score >300 and percent total plaque volume >=5% Coronary calcium score >300 and percent noncalcified plaque volume >=2.5% Percent total atheroma volume >15% or noncalcified plaque volume >7.5% CALCIUM SCORING TABLE . . ? Number of Lesions Pattern of Calcium Volume Total Score +-------+ + +--------+ + LM ?0 LAD ? 282 LCx ?53 RCA ?54 Ramus ? '-------+ + +--------+ ' SCAN INFO TEST TYPE: ??Calcium score, Coronary CT Angiography SCANNER TOOL AND DIE REPAIRER: ??SIEMENS SCANNER MODEL: ??KongZhong DOSE REDUCTION ALGORITHM: ??Helical with dose modulation PHASE UNITS: ??% START PHASE: ??67 % END PHASE: ??72 % EKG GATED: ??Yes PRE-CONTRAST: ??Yes POST-CONTRAST: ??Yes 3D RECONSTRUCTION: ??Yes PACEMAKER ?DEVICE: ??No GENERAL ?CONTRAST AGENT ?CONTRAST AGENT USED?: ??Yes ?TYPE: ??Omnipaque 350 ?DOSE: ??110 ml ?RATE: ??7 ml/s ?ROUTE: ??IV ?ARM: ??Right ?BOLUS TECHNIQUE: ??Biphasic ?SERUM CREATININE: ??0.82 mg/dL ?GFR: ??74.13 ml/min/1.73m^2 ?CREATININE DATE: ?CT CONTRAST REACTION: ??None ?MEDICATION ADMINISTERED DURING SCAN ?TYPE: ??Nitroglycerin, sublingual, B-Blockers ?NITROGLYCERIN, TOTAL DOSE: ??0.8 mg ?B-BRANDO TYPE: ??Oral ?B-BRANDO NAME, ORAL: ??Metoprolol tartrate ?B-BLOCKERS, ORAL DOSE: ??50 mg ?RADIATION DOSE ?DLP: ??709 ?KV: ??110 ?SETUP ?PATIENT TYPE: ??Outpatient ?REASON(S) FOR SCAN: ??Chest pain ?REFERRING PHYSICIAN: ??WILLIE CONNOLLY ?TECHNOLOGIST: ??Pierre Liu Patient Account ?[id number] ICD10 Codes ?R07.89, I24.89 Report generated by [employer], a product of [employer] Authorizing ProviderResult TypeResult StatusMatterickson Connolly MDCTFinal Result * CT CARDIAC CORONARY ARTERIES RAD DUAL READ (05/24/2025 2:03 PM CDT)Anatomical RegionLateralityModalityHEARTComputed TomographySpecimen (Source)Anatomical Location / LateralityCollection Method / VolumeCollection TimeReceived Time 05/24/2025 3:19 PM CDT Narrative 05/24/2025 3:19 PM CDT For Patients: As a result of the Cures Act, medical imaging exams and procedure reports are released immediately into your electronic medical record. You may view this report before your referring provider. If you have questions, please contact your health care provider. THIS IS THE RADIOLOGY OVER READ REPORT OF A DUAL READ STUDY. READ THE SEPARATE CARDIOLOGY REPORT FOR CARDIOVASCULAR FINDINGS. REPORTS MAY BE FINALIZED AT DIFFERENT TIMES. COMPARISON ??: No comparison. TECHNIQUE ??: Please see cardiology report for technical information. ?? This exam is being performed in conjunction with the services provided by the [facility] ([facility]). INDICATION: Cardiac over-read. FINDINGS: Aorta: This is reported by cardiology. Mediastinum: No adenopathy. Granulomatous calcifications in the subcarinal lymph nodes. Pulmonary arteries: Bolus timing may limit evaluation. Visualized/opacified pulmonary arteries demonstrate no filling defects. Lungs and pleural structures: No consolidation or pleural effusions, no suspicious nodules. Subsegmental area of volume loss in the right middle lobe. Miscellaneous: No acute or suspicious skeletal or upper abdominal imaging abnormality. IMPRESSION : 1. See separate cardiology report for cardiac findings. 2. Granulomatous lymph node calcification. Chronic volume loss in the right middle lobe. 3. No additional significant extra cardiac imaging abnormality. Please note that all CT scans at this facility use dose modulation, iterative reconstruction, and/or weight-based dosing when appropriate to reduce radiation dose to as low as reasonably achievable. Dictated by Sanford Espinosa MD @ 05/24/2025 3:19:15 PM (Electronically Signed) Procedure Note Sanford Espinosa MD - 05/24/2025 For Patients: As a result of the Cures Act, medical imagingexams and procedure reports are released immediately into your electronicmedical record. You may view this report before your referring provider.If you have questions, please contact your health care provider. THIS IS THE RADIOLOGY OVER READ REPORT OF A DUAL READ STUDY. READ THESEPARATE CARDIOLOGY REPORT FOR CARDIOVASCULAR FINDINGS. REPORTS MAY BEFINALIZED AT DIFFERENT TIMES. COMPARISON : No comparison. TECHNIQUE : Please see cardiology report for technical information. This exam is being performed in conjunction with the services provided bythe [facility] ([facility]). INDICATION: Cardiac over-read. FINDINGS: Aorta: This is reported by cardiology. Mediastinum: No adenopathy. Granulomatous calcifications in the subcarinallymph nodes. Pulmonary arteries: Bolus timing may limit evaluation. Visualized/opacified pulmonary arteries demonstrate no filling defects. Lungs and pleural structures: No consolidation or pleural effusions, no suspicious nodules. Subsegmental area of volume loss in the right middlelobe. Miscellaneous: No acute or suspicious skeletal or upper abdominal imaging abnormality. IMPRESSION : 1. See separate cardiology report for cardiac findings. 2. Granulomatous lymph node calcification. Chronic volume loss in theright middle lobe. 3. No additional significant extra cardiac imaging abnormality. Please note that all CT scans at this facility use dose modulation,iterative reconstruction, and/or weight-based dosing when appropriate toreduce radiation dose to as low as reasonably achievable. Dictated by Sanford Espinosa MD @ 05/24/2025 3:19:15 PM (Electronically Signed) Authorizing ProviderResult TypeResult StatusMattLutheran Hospital MDCTFinal Result * SCAN CORRESP-EKG RESULTS (05/23/2025 1:43 PM CDT) Narrative 05/23/2025 1:43 PM CDT Ordered by an unspecified provider. Authorizing ProviderResult TypeResult StatusOther Clinical StaffOTHERFinal Result * LIPID PANEL (01/04/2007 10:33 AM CDT)ComponentValueRef RangeTest Method Analysis TimePerformed AtPathologist SignatureCHOLESTEROL,HVPIS205268 - 199 mg/dLGRAND ITASCA CLINIC AND HOSPITALTRIGLYCERIDES10540 - 149 mg/dLGRAND ITASCA CLINIC AND HOSPITALHDL GEYJOULQUED20>40 mg/dLGRAND [facility]AS[facility] CHOL/HDL RATIO3.51<4.51[facility] CLINIC AND HOSPITALLDL NFPLGHRCEHO26<131 mg/dL [facility] HOSPITALPATIENT STATUSFastingABESSENTIA HEALTH Specimen (Source)Anatomical Location / LateralityCollection Method / Volume Collection TimeReceived TimeBlood specimen (specimen)BLOOD SPECIMEN / Unknown 01/04/2007 10:33 AM CDT01/04/2007 10:31 AM CDT Narrative Authorizing ProviderResult TypeResult StatusJanet Melgar MDCHEMISTRY Final ResultPerforming OrganizationAddressCity/State/ZIP CodePhone Number [facility] [place]NAL ZIP [phone] [address] * XR MAMMO SCREENING BILATERAL (10/16/2003 2:32 PM MOLD HOLDER)ComponentValueRef Range Test MethodAnalysis TimePerformed AtPathologist SignatureMAMMOGRAMNegative Anatomical RegionLateralityModalityBREASTS, Breast Left, Breast RightBilateral MammographySpecimen (Source)Anatomical Location / LateralityCollection Method / VolumeCollection TimeReceived Time10/16/2003 2:32 PM MOLD HOLDER Narrative 02/22/2004 4:36 PM CDT Ordered by an unspecified provider. Authorizing ProviderResult TypeResult StatusOther Clinical StaffMAMMOFinal Result from Last 3 Months or Most Recently Relevant to Health Maintenance Insurance Advance Directives * Full Code (Latest Code Status on File) Date ActivatedDate InactivatedComments12/23/2023 9:54 AM12/24/2023 2:31 AMQuestion AnswerCommentsCode Status Discussion:* Unable to Assess Preferences, Provider to review later Care Teams Team MemberRelationshipSpecialtyStart DateEnd Date Sona Fink PA-C [address] [place] [address] [facility]12/22/23
--- NOTE | 2025-08-22 21:24 | CRLHL7_ITS ---
For Patients: As a result of the Cures Act, medical imaging exams and procedure reports are released immediately into your electronic medical record. You may view this report before your referring provider. If you have questions, please contact your health care provider. INDICATION: Swollen, knee pain, unable to lift, no injury TECHNIQUE: Knee radiograph 3 views left COMPARISON: None FINDINGS: Bone: No acute fractures or aggressive bone lesions are identified. Joint: Severe patellofemoral and moderate medial and lateral compartment osteoarthritis noted. Trace knee effusion is seen. Soft tissue: Unremarkable. No radiopaque foreign bodies are seen. IMPRESSION: 1. No acute osseous injuries are noted. Dictated by Lance Maldonado MD @ 08/22/2025 9:58:24 PM Dictated by: Lance Maldonado MD @ 08/22/2025 21:58:30 (Electronically Signed)
[2025-08-22 21:25] VITALS: BP 123/62; PULSE 74; RESP 18; TEMP 36.7; O2SAT 99; BMI 31.9
--- NOTE | 2025-08-22 22:14 | ED.LOWEXIN ---
HPI - Extremity Injury (Lower) General Time Seen by Provider: 22:14 Date Seen: 08/22/25 Chief Complaint: Extremity Pain/Injury, Lower Stated Complaint: L knee pain Time Seen by Provider: 08/22/25 22:13 Source: patient Mode of arrival: ambulatory History of Present Illness HPI Narrative: Kimberly is a 64-year-old female with a past medical history of hypertension, diabetes, atrial fibrillation on chronic anticoagulation with Eliquis who presents the emergency department for evaluation of knee pain. Patient complains of left knee pain that started this morning when she woke up. Patient denies any specific trauma, injury however does report over the past few days she was lifting a lot which is not unusual for her. Patient does not remember twisting or tweaking her knee in any way. Patient states that this morning she took Tylenol around 8:00 a.m. as again at around 3:30 p.m. and did have improvement of her symptoms however tonight around 530 or 6:00 p.m. she had worsening pain, difficulty, ambulating due to the pain. Patient states that she tried icing it, also tried taking a dose of tramadol she had from the past around 6:20 p.m. with no improvement of symptoms. Patient describes the pain as a constant pain with intermittent increase in severity. Patient reports pain is 7/8, is worse with movement. Denies any weakness, tingling, numbness, no other complaints. Related Data Home Medications ?Medication ?Instructions ?Recorded ?Confirmed ipratropium 0.5 mg-albuterol 3 mg 3 ml inhalation Q4H PRN 06/10/22 07/11/25 (2.5 mg base)/3 mL nebulization soln Previous Rx's ?Medication ?Instructions ?Recorded fluticasone propionate 50 2 spray intranasal QDAY #16 grams 09/27/23 mcg/actuation nasal spray,suspension (Allergy Relief (fluticasone)) blood-glucose,briquette operator,cont #1 ea 09/30/23 (Dexcom G6 Tube Builder Airplane) pen needle, diabetic 31 gauge x #1,200 ea 10/01/23 5/16 (Advocate Pen Needle) albuterol sulfate 2.5 mg/3 mL 2.5 mg (3 mL) inhalation Q4H PRN 12/31/23 (0.083 %) solution for nebulization shortness of breath or wheezing #90 mL albuterol sulfate 90 mcg/actuation 2 puff inhalation Q4H PRN 01/13/24 aerosol inhaler shortness of breath or wheezing #6.7 grams fluticasone 250 mcg-salmeterol 50 1 inh inhalation BID #60 ea 04/10/24 mcg/dose blistr powdr for inhalation (Wixela Inhub) triamcinolone acetonide 0.5 % 1 applic topical BID PRN rash 7 07/13/24 topical cream days #30 grams rosuvastatin 10 mg tablet 10 mg PO .QHS #90 tabs 07/24/24 metoprolol succinate 50 mg 50 mg PO QDAY #90 tabs 10/20/24 tablet,extended release 24 hr blood-glucose transmitter (Dexcom #1 ea 02/07/25 G6 Transmitter device) pantoprazole 40 mg tablet,delayed 40 mg PO QDAY #90 tabs 02/13/25 release hydrochlorothiazide 12.5 mg tablet 12.5 mg PO QDAY #90 tabs 02/28/25 lisinopril 20 mg tablet 20 mg PO QDAY #90 tabs 02/28/25 glipizide 10 mg tablet, extended 20 mg (2 x 10 mg) PO QDAY #180 tabs 03/19/25 release 24 hr amlodipine 5 mg tablet 5 mg PO QDAY #90 tabs 03/21/25 blood-glucose sensor (Dexcom G6 #9 ea 04/04/25 Sensor device) apixaban 5 mg tablet 5 mg PO BID #60 tabs 05/09/25 diltiazem HCl 120 mg 120 mg PO DAILY #90 caps 06/13/25 capsule,extended release 24 hr cyclobenzaprine 5 mg tablet 5 - 10 mg (1 - 2 x 5 mg) PO BID 07/11/25 PRN back pain #30 tabs metformin 500 mg tablet,extended 2,000 mg (4 x 500 mg) PO DAILY 08/22/25 release 24 hr #360 tabs oxycodone 5 mg tablet 5 mg PO Q6H PRN severe pain #10 08/22/25 tabs Allergies Allergy/AdvReac Type Severity Reaction Status Date / Time aspirin Allergy Severe Wheezing Verified 08/22/25 21:27 epinephrine Allergy Severe Shakiness Verified 08/22/25 21:27 ibuprofen Allergy Severe Swelling Verified 08/22/25 21:27 of throat codeine Allergy Intermediate Rash Verified 08/22/25 21:27 Penicillins Allergy Intermediate hives, Verified 08/22/25 21:27 itching amoxicillin Allergy Mild rash Verified 08/22/25 21:27 hydrocodone Allergy Unknown Verified 08/22/25 21:27 prednisone Allergy Unknown Heart Verified 08/22/25 21:27 racing liraglutide (From Victoza) AdvReac Severe Diarrhea Verified 08/22/25 21:27 Review of Systems Narrative: Past medical history, past surgical history, medications, allergies, family history, and social history were reviewed with the patient. No additional pertinent items. A medically appropriate review of systems was performed with pertinent positives and negatives noted in HPI, all other systems negative. [facility] Medical History Hx of cancer of endometrium (~12/2023) ?Z85.42 - Personal history of malignant neoplasm of other parts of uterus (ICD-10) Hiatal hernia ?K44.9 - Diaphragmatic hernia without obstruction or gangrene (ICD-10) MARIELA (obstructive sleep apnea) ?G47.33 - Obstructive sleep apnea (adult) (pediatric) (ICD-10) Subacute dermatitis ?L30.9 - Dermatitis, unspecified (ICD-10) Tubular adenoma ?D36.9 - Benign neoplasm, unspecified site (ICD-10) Change in stool caliber ?R19.5 - Other fecal abnormalities (ICD-10) Thrombocytopenia ?D69.6 - Thrombocytopenia, unspecified (ICD-10) Normal stress echocardiogram Normal stress echocardiogram PSVT (paroxysmal supraventricular tachycardia) ?I47.1 - Supraventricular tachycardia (ICD-10) Moderate persistent asthma ?J45.40 - Moderate persistent asthma, uncomplicated (ICD-10) Encounter for screening for severe acute respiratory syndrome coronavirus 2 (SARS-CoV-2) infection ?Z11.52 - Encounter for screening for COVID-19 (ICD-10) Chronic sinusitis ?J32.9 - Chronic sinusitis, unspecified (ICD-10) Surgical History History of cholecystectomy ?Z90.49 - Acquired absence of other specified parts of digestive tract (ICD-10) H/O tubal ligation ?Z98.51 - Tubal ligation status (ICD-10) History of sinus surgery (05/29/11) ?Z98.890 - Other specified postprocedural states (ICD-10) History of endoscopic sinus surgery ?Z98.890 - Other specified postprocedural states (ICD-10) History of colonoscopy ?Z98.890 - Other specified postprocedural states (ICD-10) History of breast biopsy ?Z98.890 - Other specified postprocedural states (ICD-10) Family History Mother Stroke, Onset Age: 75 Maternal Grandmother Stroke, Onset Age: 70 Social History Narrative: Does not drink alcohol Does not use illicit drugs Non-smoker Smoking Status: Never smoker How often do you have a drink containing alcohol: never AUDIT-C Alcohol total score: 0 Non-prescribed substance use: denies use Caffeine: Yes Are you using contraception or practicing any form of control: No Exam Narrative: Exam Narrative: General: Afebrile, in distress secondary to pain HEENT: Normocephalic, atraumatic, conjunctiva normal. MMM Neck: non-tender, supple Cardio: regular rate. regular rhythm Resp: Normal work of breathing, no respiratory distress, lungs clear bilaterally, no wheezing, rhonchi, rales Chest/Back: no visual signs of trauma, no midline tenderness, no CVA tenderness Abdomen: soft, non distension, no tenderness, no peritoneal signs Neuro: alert and fully oriented. CN II-XII grossly intact. Grossly normal strength and sensation in all extremities. MSK: + left knee with diffuse tenderness to palpation, no significant swelling, warmth, erythema, range of motion is limited secondary to pain (patient reports worsening pain with movement), distally neurovascular intact with dorsalis pedis and posterior tibial pulse present bilaterally, no calf tenderness, compartment soft. No obvious deformities. Integumentary/Skin: no rash visualized, normal color Psych: normal affect, normal behavior Const: Vital Signs, click to edit/add: Vital Signs - 24 hr 08/22/25 21:25 Temperature 98.0 F Pulse Rate [Right Pulse Oximeter] 74 Respiratory Rate 18 Blood Pressure [Ri ght Upper Arm] 123/62 Pulse Oximetry 99 Oxygen Delivery Me thod Room Air Course Vital Signs Vital signs: Initial Vital Signs Temperature 98.0 F 08/22/25 21:25 Temperature Source Temporal Artery Scan 08/22/25 21:25 Pulse Rate 74 08/22/25 21:25 Respiratory Rate 18 08/22/25 21:25 Blood Pressure 123/62 08/22/25 21:25 Blood Pressure Mean 82 08/22/25 21:25 Blood Pressure Position Sitting 08/22/25 21:25 Pulse Oximetry 99 08/22/25 21:25 Oxygen Delivery Method Room Air 08/22/25 21:25 Vital Signs Temperature 98.0 F 08/22/25 21:25 Pulse Rate 74 08/22/25 21:25 Respiratory Rate 18 08/22/25 21:25 Blood Pressure 123/62 08/22/25 21:25 Pulse Oximetry 99 08/22/25 21:25 Oxygen Delivery Method Room Air 08/22/25 21:25 Temperature 98.0 F 08/22/25 21:25 Pulse Rate 74 08/22/25 21:25 Respiratory Rate 18 08/22/25 21:25 Blood Pressure 123/62 08/22/25 21:25 Pulse Oximetry 99 08/22/25 21:25 Oxygen Delivery Method Room Air 08/22/25 21:25 Medications Administered Medications: Discontinued Medications Generic Name Dose Route Start Last Admin Trade Name Harlanq PRN Reason Stop Dose Admin Oxycodone HCl 5 mg 08/22/25 22:31 08/22/25 22:38 Oxycodone 5 Mg Tablet PO 08/22/25 22:32 5 mg ONCE ONE Administration MDM - Extremity Injury (Lower) MDM Narrative Medical decision making narrative: Kimberly is a 64-year-old female with a past medical history of hypertension, diabetes, atrial fibrillation on chronic anticoagulation with Eliquis who presents the emergency department for evaluation of knee pain. Upon arrival patient is nontoxic appearing, afebrile, in distress secondary to pain. Patient hemodynamically stable vital signs within normal limits. Differential diagnosis includes but is not limited to fracture versus dislocation versus contusion versus a fusion versus inflammatory versus bursitis versus tendinitis versus strain versus hematoma among others. I personally reviewed interpreted x-ray of the left knee which is unremarkable with no acute fracture, dislocation, no acute osseous injuries, no significant effusion. There is severe patellofemoral and moderate medial lateral compartment osteoarthritis noted. I discussed results with patient. Overall patient is nontoxic appearing, low suspicious for acute infection, no evidence of fracture, suspect could be inflammatory/strain. At this time discussed treatment with conservative measures, will place patient in knee immobilizer for comfort, weight-bearing as tolerated, recommend Tylenol, oxycodone as needed for severe pain. Discussed with patient to follow-up with her outpatient provider in the next 5-7 days if no improvement of symptoms for likely further testing. Patient is agreeable to this plan. Medical Records Attestation: I reviewed the patient's medical records. Imaging Data X-ray knee: Attestation: I have reviewed the pertinent imaging results. Radiologist's impression: Patient: Kimberly Mcmillan MR#: [id number] : 1960 Acct:[id number] Loc: ED Service Date: 08/22/[address]: Ordering Physician: [facility] Date of Service: 08/22/25 Procedure(s): XR knee LT 3V Accession Number(s): [id number] cc: ROBYN, Sona Fink; PROVIDER,[facility]~ For Patients: As a result of the Cures Act, medical imaging exams and procedure reports are released immediately into your electronic medical record. You may view this report before your referring provider. If you have questions, please contact your health care provider. INDICATION: Swollen, knee pain, unable to lift, no injury TECHNIQUE: Knee radiograph 3 views left COMPARISON: None FINDINGS: Bone: No acute fractures or aggressive bone lesions are identified. Joint: Severe patellofemoral and moderate medial and lateral compartment osteoarthritis noted. Trace knee effusion is seen. Soft tissue: Unremarkable. No radiopaque foreign bodies are seen. IMPRESSION: 1. No acute osseous injuries are noted. Dictated by Lance Maldonado MD @ 08/22/2025 9:58:24 PM Dictated by: Lance Maldonado MD @ 08/22/2025 21:58:30 (Electronically Signed) Discharge Plan Discharge Clinical Impression: Acute pain of left knee Patient Disposition: Home, Self-Care Condition: Stable Additional Instructions: Please follow-up with your primary care provider in the next 5-7 days if no improvement of your symptoms. Please call to schedule appointment. Please wear Alberto wrap/knee immobilizer for comfort. Please bear weight as tolerated. Please ice, elevate while at rest. Please continue Tylenol 1000 mg every 6 hours as needed for pain. Please take oxycodone 1 tablet every 4-6 hours as needed for severe pain. Please return to the emergency department if any worsening symptoms. It was a pleasure taking care of you today. We hope you feel better soon. Prescriptions: New oxycodone 5 mg tablet 5 mg PO Q6H PRN (Reason: severe pain) Qty: 10 0RF No Action cyclobenzaprine 5 mg tablet 5 - 10 mg PO BID PRN (Reason: back pain ) Qty: 30 0RF Rx Instructions: 5-10 MG PO twice daily as needed (DME) Dexcom G6 Tube Builder Airplane Misc See Rx Instructions .MEDSUPPLY Qty: 1 0RF Rx Instructions: As directed for coninuous glucose monitoring triamcinolone acetonide 0.5 % cream 1 applic topical BID PRN (Reason: rash) 7 Days Qty: 30 1RF Rx Instructions: Apply twice daily to eczema x 7 days (not on face) apixaban 5 mg tablet 5 mg PO BID Qty: 60 0RF ipratropium-albuterol 0.5 mg-3 mg(2.5 mg base)/3 mL solution for nebulization 3 ml inhalation Q4H PRN Rx Instructions: 1 vial via nebulizer, every four hours as needed for shortness of breath fluticasone propionate [Allergy Relief (fluticasone)] 50 mcg/actuation spray,suspension 2 spray intranasal QDAY Qty: 16 11RF Rx Instructions: administer into each nostril (DME) pen needle, diabetic [Advocate Pen Needle] 31 gauge x 5/16 needle See Rx Instructions .Route Qty: 1200 0RF Rx Instructions: As directed albuterol sulfate 2.5 mg /3 mL (0.083 %) solution for nebulization 2.5 mg inhalation Q4H PRN (Reason: shortness of breath or wheezing) Qty: 90 0RF albuterol sulfate 90 mcg/actuation HFA aerosol inhaler 2 puff inhalation Q4H PRN (Reason: shortness of breath or wheezing) Qty: 6.7 2RF fluticasone propion-salmeterol [Wixela Inhub] 250-50 mcg/dose blister with device 1 inh inhalation BID Qty: 60 6RF Rx Instructions: 1 inhalation twice daily rosuvastatin 10 mg tablet 10 mg PO .QHS Qty: 90 3RF Rx Instructions: Once daily for cholesterol metoprolol succinate 50 mg tablet extended release 24 hr 50 mg PO QDAY Qty: 90 3RF Rx Instructions: once daily for blood pressure (DME) Dexcom G6 Transmitter Device See Rx Instructions .MEDSUPPLY Qty: 1 2RF Rx Instructions: As directed continuous for diabetes pantoprazole 40 mg tablet,delayed release (DR/EC) 40 mg PO QDAY Qty: 90 3RF Rx Instructions: once daily for acid reflux hydrochlorothiazide 12.5 mg tablet 12.5 mg PO QDAY Qty: 90 1RF Rx Instructions: once daily with lisinopril for blood pressure lisinopril 20 mg tablet 20 mg PO QDAY Qty: 90 3RF glipizide 10 mg tablet extended release 24hr 20 mg PO QDAY Qty: 180 1RF Rx Instructions: two tablets once daily for diabetes amlodipine 5 mg tablet 5 mg PO QDAY Qty: 90 2RF (DME) Dexcom G6 Sensor Device See Rx Instructions .MEDSUPPLY Qty: 9 2RF Rx Instructions: As directed- daily use diltiazem HCl 120 mg capsule,extended release 24hr 120 mg PO DAILY Qty: 90 0RF metformin 500 mg tablet extended release 24 hr 2,000 mg PO DAILY Qty: 360 3RF Follow Up/Referrals: Sona Fink PA-C [Primary Care Provider, Family Practice] Stand Alone Forms: [facility] Info Instructions
--- OUTSIDE RECORDS SUMMARY | 2025-08-22 22:42 | XMS_ITS ---
Author Name Interface, [id number] lity Address [address] [facility] [address] [facility] [address] [address] [facility] Address [address] [facility] [address] [place] [address] Support Name Relationship Address Phone Joann Hernandez Spouse Unknown Unavailable Allergies and Adverse Reactions Medication/Group Name Reaction Severity Date ibuprofen 07/23/20252395bwhkwki39/10/8290aettrns87/10/7379bvzrmzhypel41/10/2025hydrocodone 07/23/20256357suzufsqtml25/10/8579Bojtkfzwayv13/10/4874dkoxiuuaahi37/10/2025 Plan Date Type Value 07/23/2025 APPOINTMENT OV 30 MIN Reason for Visit OV 30 MIN Encounters Date Name 07/23/2025 History of endometri al cancer Medications Date Name Route Dose Frequency Instructions Start Date End Date Status Fill Status Indication 11/29/2023 Pantoprazole (Sodium) Oral Delayed Release orally 40.0 mg daily pvgdff5512/01/2023Multivitamins Oral Tdoynragwiat92/20/2024ocosahexanoic Acid- Eicosapentanoic Acid Oral 120 mg-180 zigibsan09/20/2024Magnesium Oxide Oral bcxjjb7911/29/2023Lisinopril Zkajurtenv22.0 kdjjauwuoqwls82/18/2024Metformin Oral qwcetu7116.0 ajwayzwtzpkib82/18/2024Fluticasone Nasal Chadron 50 mcg/actuation hkwmff1912/01/2023lbuterol-Ipratropium Nebulized 3 mg (2.5 mg base)-0.5 mg/3 mL uanynj3311/29/2023osuvastatin Calcium Ocssbtombl73.0 dpxuqiyjthexl85/18/2024 Metoprolol Oral 24 hr Tab (Succinate).0 taxpfbwxdcilw46/20/2024 Cholecalciferol Msbxypkbrc07/20/2024Fluticasone-Salmeterol Inhaler 250 mcg-50 mcg/Ohargqiarr13/01/2025Hydrochlorothiazide Woewityarn87.5 mgdailyactive 11/29/2023lbuterol HFA Inhaler 90 mcg/mgizexhvdusascd17/20/2024Vitamin B Complex Oral Htksyjcozctnz59/18/2024mlodipine Oralorally5.0 mgdailyactive 11/29/2023yclobenzaprine Oralorally5.0 hirdnnuvjle71/20/2024Glucosamine Oral ejpzvg8312/01/2023Ferrous Sulfate Oralactive Problems Diagnosis Status Date of Diagnosis Resolution Date Postmenopausal bleeding (finding) Active Diarrhea (finding)ActiveChronic constipationActiveConstipation (finding)Active CounselingActiveUterine cancerActiveHistory of endometrial cancerActive Notes Section * PATENT LEATHER SORTER Follow-Up GYNECOLOGIC ONCOLOGY FOLLOW-UP VISIT Patient Name: TAMIKA HERNANDEZ : 1960 Date of Visit: 07/23/2025 Referring Provider: Mansi Ramsey MD (Obstetrics/Gynecology) Attending: Caitlyn Rao (Gynecological/Oncology) Chief Complaint ([facility]): Surveillance?? History of Present Illness ([facility]): Tamika Hernandez is a??64-year-old female with [...] dicated. Colonic diverticulosis without diverticulitis. 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 Interval History ([facility]) Tamika is here today for a [...] sentinel lymph node dissection, cystoscopy Pelvic washings?? psychiatry resident History: [id number] x 4 Menarche: 9 years [...] 5 mg orally daily * Fluticasone Nasal Chadron 50 mcg/actuation * Vitamin B Complex Oral Capsule Family History: No1st degree relative family history of breast, ovarian, uterine, colon cancer Social History: Lives with her . 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 ??No tobacco??use, illicit drug use, alcohol use. Health Maintenance: Colonoscopy:??2022 Mammogram:??2021 DEXA scan: 2022?? Vital Signs: Blood pressure: 106/58, Sitting, R arm, Large, Pulse: 67, Temperature: 97.8 F, Respirations: 18, O2sat: 97%, At Rest, Room Air, Pain Scale: 0, Height: 67 in, Weight: 212 lb, BSA: 2.07, BMI: 33.2 kg/m2 Performance Status ECOG/Karnofsky ? Physical Exam ([facility]): General: appears well and in no [...] Histologic Grade: G2; ) Assessment & Plan ([facility]): Tamika Hernandez is a??64-year-old female referred to??[facility] with a historyof Stage IA FIGO grade [...] signed by Brandi Garcia CNP 07/23/2025 11:20 SR. MANAGER
--- OUTSIDE RECORDS SUMMARY | 2025-08-22 22:43 | XMS_ITS ---
Author Name Interface, [id number] lity Address [address] [facility] [address] [place] [address] [facility] Address [address] [facility] [address] [place] [address] Support Name Relationship Address Phone Joann Hernandez Spouse Unknown Unavailable Allergies and Adverse Reactions Medication/Group Name Reaction Severity Date ibuprofen 07/23/20251916hmotwvb48/10/7561nauwginyeb48/10/6678Ylbcijkxkdf60/10/2025moxicillin 07/23/20255351kbegrrz94/10/3500oqqugcpvdvt83/10/3243uriaolonmkz89/10/2025 Plan Date Type Value 07/23/2025 APPOINTMENT OV 30 MIN Reason for Visit OV 30 MIN Encounters Date Name 07/23/2025 History of endometri al cancer Medications Date Name Route Dose Frequency Instructions Start Date End Date Status Fill Status Indication 11/29/2023 Pantoprazole (Sodium) Oral Delayed Release orally 40.0 mg daily lebfvu2512/01/2023Multivitamins Oral Iqjlxrdqrpyp10/20/2024ocosahexanoic Acid- Eicosapentanoic Acid Oral 120 mg-180 rmdbajzk42/20/2024Magnesium Oxide Oral cbulfb6411/29/2023Lisinopril Bzsrarpbbd28.0 mtyisrkuizmjs26/18/2024Metformin Oral xjjzsm7443.0 zhaoonvgatiav09/18/2024osuvastatin Calcium Nngwpwmluy15.0 mgdaily aefjfo5811/29/2023Fluticasone Nasal Ebro 50 mcg/yrdnzzbybmvicdu28/20/2024 Albuterol-Ipratropium Nebulized 3 mg (2.5 mg base)-0.5 mg/3 xTfcygjx47/18/2024 Metoprolol Oral 24 hr Tab (Succinate)rnroar11.0 ccqrlefxfgwbr63/20/2024 Cholecalciferol Mtjxqkavao94/20/2024Fluticasone-Salmeterol Inhaler 250 mcg-50 mcg/Pgvrsutdne64/18/2024lbuterol HFA Inhaler 90 mcg/fnogipcbediskwf38/20/2024 Vitamin B Complex Oral Qplvfijpzeykc34/01/2025Hydrochlorothiazide Myuowthofv76.5 vgorgbskibfko10/18/2024mlodipine Oralorally5.0 vowxjvylapazz05/18/2024 Cyclobenzaprine Oralorally5.0 qenublrgpnj76/20/2024Glucosamine Oralactive 12/01/2023Ferrous Sulfate Oralactive Problems Diagnosis Status Date of Diagnosis Resolution Date Postmenopausal bleeding (finding) Active Diarrhea (finding)ActiveChronic constipationActiveConstipation (finding)Active CounselingActiveUterine cancerActiveHistory of endometrial cancerActive Notes Section * INTERNAL COMBUSTION ENGINEER Follow-Up GYNECOLOGIC ONCOLOGY FOLLOW-UP VISIT Patient Name: TAMIKA HERNANDEZ : 1960 Date of Visit: 07/23/2025 Referring Provider: Mansi Ramsey MD (Obstetrics/Gynecology) Attending: Caitlyn Rao (Gynecological/Oncology) Chief Complaint (Mechanical Project Manager Oncology): Surveillance?? History of Present Illness (Mechanical Project Manager Oncology): Tamika Hernandez is a??64-year-old female with [...] dicated. Colonic diverticulosis without diverticulitis. 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 Interval History (Mechanical Project Manager Oncology) Tamika is here today for a [...] sentinel lymph node dissection, cystoscopy Pelvic washings?? faculty physician History: [id number] x 4 Menarche: 9 years [...] 5 mg orally daily * Fluticasone Nasal Ebro 50 mcg/actuation * Vitamin B Complex Oral Capsule Family History: No1st degree relative family history of breast, ovarian, uterine, colon cancer Social History: Lives with her . 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 ??No tobacco??use, illicit drug use, alcohol use. Health Maintenance: Colonoscopy:??2022 Mammogram:??2021 DEXA scan: 2022?? Vital Signs: Blood pressure: 106/58, Sitting, R arm, Large, Pulse: 67, Temperature: 97.8 F, Respirations: 18, O2sat: 97%, At Rest, Room Air, Pain Scale: 0, Height: 67 in, Weight: 212 lb, BSA: 2.07, BMI: 33.2 kg/m2 Performance Status ECOG/Karnofsky ? Physical Exam (Mechanical Project Manager Oncology): General: appears well and in no [...] Histologic Grade: G2; ) Assessment & Plan (Mechanical Project Manager Oncology): Tamika Hernandez is a??64-year-old female referred to??[facility] with a historyof Stage IA FIGO grade [...] signed by Brandi Garcia CNP 07/23/2025 11:20 MAINTENANCE ANALYST
== END 2025-08-22 22:57 | disposition home or self-care (01) ==
LOC: ED 22:40
PROVIDERS: Emergency Provider Emergency Medicine; PCP Physician Assistant Medical
DX: M22.2X2 Patellofemoral disorders, left knee (principal); M17.12 Unilateral primary osteoarthritis, left knee; Z79.01 Long term (current) use of anticoagulants
CPT/HCPCS: 73562; 99284; 99285; A9270

== ENCOUNTER 2025-09-11 14:23 | Outpatient (CLI) | payer MEDICARE, SELFPAY ==
--- NOTE | 2025-09-11 14:30 | CRLHL7_ITS ---
For Patients: As a result of the Century Cures Act, medical imaging exams and procedure reports are released immediately into your electronic medical record. You may view this report before your referring provider. If you have questions, please contact your health care provider. EXAM: MRI OF THE LEFT KNEE, WITHOUT CONTRAST CLINICAL INDICATION: Internal derangement. Osteoarthritis. COMPARISON PLAIN FILMS: 08/22/2025. COMPARISON CROSS-SECTIONAL IMAGING STUDIES: None available at time of interpretation. TECHNICAL: Axial, sagittal and coronal T1, PD, PD FS and T2 FS images. Knee coil. FINDINGS: MEDIAL COMPARTMENT: Medial Meniscus: Normal size and morphology without tear. Articular Cartilage: Mild thinning and fissuring centrally. Additional small area of focal high-grade chondral fissuring anteriorly in the tibia with subchondral cystic change. - LATERAL COMPARTMENT: Lateral Meniscus: Normal size and morphology without tear. Articular Cartilage: Mild chondral fraying without thinning centrally. - PATELLOFEMORAL COMPARTMENT: Articular Cartilage: Full-thickness chondromalacia with osseous remodeling in the patellar apex, lateral patellar facet, central and lateral trochlear groove. - CRUCIATE LIGAMENTS: Anterior Cruciate Ligament: Normal. Posterior Cruciate Ligament: Normal. - MEDIAL COLLATERAL LIGAMENT AND POSTEROMEDIAL CORNER COMPLEX: Medial Collateral Ligament: Normal. Medial Head of the Gastrocnemius and Semimembranosus Tendons: Normal. - LATERAL COLLATERAL LIGAMENT COMPLEX AND POSTEROLATERAL CORNER COMPLEX: Fibular Collateral Ligament: Normal. Distal Biceps Femoris Tendon Complex: Normal. Iliotibial Band: Normal. Popliteus Tendon: Normal. Posterolateral Corner Capsule: Normal. - EXTENSOR MECHANISM: Distal Quadriceps Tendon: Normal. Patellar Tendon: Normal. Medial Patellar Retinaculum and Medial Patellofemoral Ligament: Normal. Lateral Patellar Retinaculum: Normal. Normal patellar alignment. No patella kanika. Normal trochlear depth. Normal lateral trochlear inclination. - JOINT SPACE: Effusion: Small to moderate-sized knee joint effusion with mild synovitis. Small popliteal cyst. Joint Bodies: None seen. - OSSEOUS STRUCTURES: No fracture, marrow edema or marrow replacement process. - PERIARTICULAR SOFT TISSUES: Periarticular Cysts or Ganglia: None. Bursae: No prepatellar, superficial infrapatellar, deep infrapatellar, pes anserinus or semimembranosus/MCL bursitis. Musculature: No muscle atrophy or muscle edema. Subcutaneous and Soft Tissues: Mild to moderate diffuse subcutaneous edema. Neurovascular Structures: Normal. IMPRESSION: 1. Advanced osteoarthritis in the patellofemoral compartment. 2. 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 3. Mild chondromalacia in the lateral compartment. 4. Small to moderate-sized knee joint effusion with mild synovitis. Small popliteal cyst. 5. Diffuse subcutaneous edema. Dictated by Tom Matt MD @ 09/12/2025 10:45:44 AM (Electronically Signed)
== END 2025-09-11 14:24 | disposition home or self-care (01) ==
LOC: MRI 14:23
PROVIDERS: PCP Physician Assistant Medical; Visit Provider Family Medicine
DX: M17.12 Unilateral primary osteoarthritis, left knee (principal); M94.262 Chondromalacia, left knee; M25.462 Effusion, left knee; M71.22 Synovial cyst of popliteal space [Baker], left knee; M23.92 Unspecified internal derangement of left knee
CPT/HCPCS: 73721